=== PATIENT | female | born 1975 | race Caucasian/White ===

== ENCOUNTER 2023-11-16 14:35 | Outpatient (OUT) | payer OTHER, SELFPAY ==
--- NOTE | 2023-11-16 14:55 | XR_ITS ---
The [address] [address] Patient Name: DIOGENES ALLEN MRN: [id number] date: 1975 Sex: F Assigned Patient Location: [facility] Current Patient Location: Accession/Order Number: [id number] Exam Date: 11/16/2023 14:48 Report Date: 11/18/2023 07:22 At the request of: LESLEY CARDENAS Procedure: XR knee LT 4V PROCEDURE: XR knee LT 4V COMPARISON: None. HISTORY: Left Knee Pain FINDINGS: BONES:No fracture, acute abnormality, or significant arthropathy. SOFT TISSUES:Negative. No visible soft tissue swelling. EFFUSION:None visible. OTHER: Negative. XR/XR knee LT 4V IMPRESSION: No acute radiographic abnormality Electronically authenticated by: AURELIO NASSAR Date: 11/18/2023 07:22
== END 2023-11-16 14:36 | disposition home or self-care (01) ==
PROVIDERS: PCP Nurse Practitioner Family; Visit Provider Nurse Practitioner Family
DX: M25.562 Pain in left knee (principal)
CPT/HCPCS: 73564

== ENCOUNTER 2024-01-16 11:01 | Outpatient (OUT) | payer OTHER, SELFPAY ==
--- OUTSIDE RECORDS SUMMARY | 2024-01-16 11:05 | XMS_ITS | CCD ---
Author Organization [facility] ion Partnership [facility] Care Team Providers Care Pharmacist Apprentice Name Role Phone La Aquino Unavailable Angy Lunsford Unavailable JEFERSON Aquino Attending Provider Angy Lunsford Admitting Unavailable Angy Lunsford Attending Unavailable La Aquino Primary Care Unavailable La Aquino Admitting Unavailable La Aquino Attending Unavailable Unallocated, [place] Provider Primary Care Provider KHARI HEAD Attending Unavailable SANTA LUNSFORD Primary Care Unavailable SANTA LUNSFORD Attending Unavailable SANTA LUNSFORD Admitting Unavailable Allergies Allergy Classification Reported Allergen(s) Allergy Type Date of Onset Reaction(s) Facility (16 sources) Morphine; Translations: [morphine] Drug Allergy 12-22-2018 stomach upset [facility] (1 source) Morphine Drug Allergy 12-22-2018 [facility] Repository Medications Current Medications Medication Drug Class(es) Dates Sig (Normalized) Sig (Original) ascorbic acid 250 mg oral tablet (12 sources) Vitamin C Start: 12-23-2018 take 1 tablet by mouth once daily Ascorbic Acid (Vitamin C) (Vitamin C) 250 mg Tablet Active 250 MG PO Daily December 23, 2018 12:00am ascorbic acid (V itamin C) 100 MG chewable tablet Vitamin C 0 Active take 1 tablet by [place] th every twenty-four hours Vitamin C 250 MG 1 tablet Orally Once a day Active aspirin 81 mg delayed release oral tablet (13 sources) Platelet Aggregation Inhibitor, Nonsteroidal Anti-inflammatory Drug take 1 tablet by mouth every twenty-four hours Aspirin Adult Low Dose 81 MG 1 tablet Orally Once a day Active atorvastatin 20 mg oral tablet (18 sources) HMG-CoA Reductase Inhibitor Star t: 10-1 7-20 19 atorvastatin (Lipitor) 20 MG tablet compression stockings (13 sources) compression stoc kings Active ELDERBERRY FRUIT (1 source) Star t: 11-26 Elderberry Fruit Active MG PO November 16, 2023 12:00am Elderberry preparation (2 sources) ELDERBERRY PO Ta ke by mouth 0 Active losartan potassium 25 mg oral tablet (18 sources) Angiotensin 2 Receptor Jeffrey Star t: 12-07 losartan (Cozaar) 25 MG tablet methylPREDNISolone 4 mg oral tablet (1 source) Corticosteroid Star t: 11-26 24 take 1 tablet by mouth once Methylprednisolone (Medrol (Reece)) 4 mg tablets,dose pack Active 0 PO per package directions November 16, 2023 12:00am PO PER PKG DIR Multiple Vitamin (13 sources) Multiple Vitamin as directed Orally Active Multiple Vitamins-Minerals (MULTIVITAMIN ADULTS PO) (2 sources) Multiple Vitamins-Minerals (MULTIVITAMIN ADULTS PO) Multivitamin 0 Active Multivitamin preparation (3 sources) Star t: 12-07 19 take 1 tablet by mouth once daily Multivitamin Active 1 TAB PO Daily December 23, 2018 12:00am Start: 12-23-2018 take 1 tablet by [place] once daily Multivitamin Active 1 TAB PO Daily December 22, 2018 11:00pm Probiotic - (13 sources) Probiotic - as d irected Orally Active saccharomyces boulardii 250 mg oral capsule (1 source) Start: 11-16-2023 take 1 capsule by mouth twice daily Saccharomyces Boulardii (Daily Probiotic (S. Boulardii)) 250 mg capsule Active 250 MG PO Twice daily November 16, 2023 12:00am Vitamin B 12 100 MCG (12 sources) Vitamin B 12 100 MCG as directed Orally Active vitamin b12 0.1 mg oral lozenge (1 source) Vitamin B12 Vitamin B 12 100 MCG as directed Orally Active Vitamin C 250 MG (6 sources) take 1 tablet by mouth once daily Vitamin C 250 MG 1 tablet Orally Once a day Active vitamin e 90 mg oral capsule (2 sources) take 1 capsule by mouth in the morning vitamin E capsule Take 200 Units by mouth in the morning. 0 Active zinc acetate 25 mg oral capsule (1 source) Start: 11-16-2023 take 25 mg by mouth once daily Zinc Acetate Active 25 MG PO Daily November 16, 2023 12:00am Completed/Discontinued Medications Medication Drug Class(es) Dates Sig (Normalized) Sig (Original) Norgestimate-Ethin yl Estradiol (7 sources) Progestin, Estrogen Start: 12-23-2018 End: 11-16-2023 take 1 tablet by mouth once daily Norgestimate-Ethiny l Estradiol (Tri-Sprintec (28)) 0.18/0.215/0.25 mg-35 mcg (28) tablet Discontinued 1 TAB PO Daily December 23, 2018 12:00am November 16, 2023 1:51pm Start: 12-23-2018 take 1 tablet by [place] th once daily Norgestimate-Ethinyl Estradiol (Tri-Sprintec (28)) 0.18/0.215/0.25 mg-35 mcg (28) tablet Active 1 TAB PO Daily December 23, 2018 12:00am Start: 12-23-2018 take 1 tablet by [place] th once daily Norgestimate-Ethinyl Estradiol (Tri-Sprintec (28)) 0.18/0.215/0.25 mg-35 mcg (28) tablet Active 1 TAB PO Daily December 22, 2018 11:00pm take 1 tablet by [place] th once daily Ortho Tri-Cyclen (28) 0.18/0.215/0.25 MG-35 MCG 1 tablet Orally Once a day Not-Taking triamcinolone acetonide 1 mg/ml topical cream (4 sources) Corticosteroid Start: 01-30-2020 Triamcinolone Acetonide 0.1 % 1 application Externally Twice a day for 7 day(s) apply twice per day for the 7 days and then as needed when it flares. Jan, Not-Taking Problems Active Problems Problem Classification Problem Date Documented Date Episodic/Chronic Allergic reactions (2 sources) Chronic dermatitis; Translations: [Dermatitis, unspecified] 04-20-2023 Episodic Diabetes mellitus without complication (4 sources) Impaired fasting glucose; Translations: [Impaired fasting glucose] Onset: 01-07-2023 Episodic Disorders of lipid metabolism (20 sources) Hyperlipidemia; Translations: [Hyperlipidemia, unspecified] Onset: 01-28-2021 Resolved: 11-18-2021 Chronic Essential hypertension (20 sources) Essential hypertension; Translations: [Essential (primary) hypertension] Onset: 01-28-2021 Resolved: 11-18-2021 Chronic Other diseases of veins and lymphatics (13 sources) Peripheral venous insufficiency; Translations: [Venous insufficiency (chronic) (peripheral)] Episodic Other endocrine disorders (2 sources) Disorder of endocrine system; Translations: [Endocrine disorder, unspecified] 04-20-2023 Episodic Other female genital disorders (3 sources) Leukoplakia of vulva Onset: 01-28-2021 Resolved: 01-28-2021 Episodic Other nervous system disorders (9 sources) Chronic pain; Translations: [Other chronic pain] Chronic Other nervous system disorders (2 sources) Other chronic pain Chronic Other non-traumatic joint disorders (4 sources) Pain in left knee; Translations: [Left knee pain] Episodic Other nutritional; endocrine; and metabolic disorders (17 sources) Body mass index 40+ - severely obese; Translations: [Body mass index (BMI) 45.0-49.9, adult] Chronic Other nutritional; endocrine; and metabolic disorders (3 sources) Body mass index (BMI) 40.0-44.9, adult Onset: 01-28-2021 Resolved: 01-28-2021 Chronic Other screening for suspected conditions (not mental disorders or infectious disease) (12 sources) Encounter for screening for malignant neoplasm of colon; Translations: [Encounter for screening mammogram for malignant neoplasm of breast] Onset: 01-28-2021 Resolved: 01-28-2021 Episodic Substance-related disorders (11 sources) Smoker; Translations: [Nicotine dependence, unspecified, uncomplicated] Chronic Unclassified (1 source) Pure hypercholesterolemia , unspecified; Translations: [Pure hypercholesterolemia , unspecified] Onset: 01-07-2023 Varicose veins of lower extremity (20 sources) Varicose veins of lower extremity; Translations: [Varicose veins of bilateral lower extremities with pain] Episodic Past or Other Problems Problem Classification Problem Date Documented Da te Episodic/Chronic Other non-traumatic joint disorders (1 source) Pain in unspecified joint Onset: 01-28-2021 Resolved: 01-28-2021 Episodic Results Test Name Value Interpretation Reference Range Facility Coding Summaryon 06-29-2023 Coding Summary HTMLBase 64 CrrafflfQAn5iTi+PGhlY WQ+RP3FYBDsL45whYMlrA 0pW6MDPSqYTeitBIEETNv DAfBnsuLaOO9qwVQqNYVs IC8+DE9pDEDoXypteHIke 5S9iKD5N03lqp7pVDevnW T6BYYsKaIhejqln3dmfXm 6IDcuNmluOyBt FZMndW13LZH2qN90Gh64g ZBfiPWut2lehQa5GwWbLC UeNKO8kSelRUbuy8DbHSU bU32wdGXug8R9 YQNuvQapuWObGyArpLE4e G5uRJzocsuax7gxquntPd d4fk15yNUaf9R1pEA9K4M gveQ1QIUdiCJe EcajfWGEiM8edsaxc1alz psvUaYeMJRoGLd9ILd2SO CnkOcvXyOeQR78AUJ4YQB hkgGjV9QvMBZd zVhzFvX1r4L3Ap3RU5DSI usbU0BVTCVDAHakzFP+PC 48vp67E6QrUhezGeb8NJM kQHV0fPV1hI0c ODNiKCsfk7Z7gAR7R4Aab cMndz7vn1jqHTAiNXwlW7 0tiRYcd2C8PYZpdQP6GPU viUzxHjHrwC33 Oyc+WALmgAoye3AsHnsxw 4ayh9zznIb8GvovSYRvmq BrhQvaEFW5p4GvZs7oTIA tpZJ3xYY7nE3k AzZxGhN9EZsjK456HvWlp YMsZtdpK04cE5UrbTQ+PH RzJww8JDUmjCudBC5dV9Z hZGRpbmctbGVm dIfhCV4nZUFirhcnAFZqy Q8yCGWbZ5z2MmHsNhC1ME cpL6EuKGPkcgatRd40fC4 uRyMaGsB4XErc K9XuyzW4QPLenLUdNQusY ID8Z42rt7A7BIIyRPEeGS Q2uQO1sY1xxNutcfvfbPT mdDsgdmVydGlj CFrdOJtxC322AGJsdLbjL kNvZGluZyBEYXRlOiAgMD QvMjIvMjAyNDwvdGQ+PHR tVZZ4wNyxDGEp cAVxZZtuTf9xcOwbrOocL J9wFLXunxpkZZBrjO3qLL DrxCQegCkxPZ3bQQYzhlv kx240EcAbUDY8 SKSadRBkY5TapP4jFnInZ WJcBWMuL3RjrJGsKQanS6 21DOkqFtU6XPAesmSiT2T sLWFsaWduOiB0 j6S3Sk0Xr5DcapvmX0Yyn TDwFzRvFuvcKYh2H8JdQz wvdHI+SJ32VWQnNU86AAo 5HSN4xMotYOzj YJOzR3QcnG2vHgPaNKYeZ GRkOyc+PHRhYmxlIHdpZH RoPScxMDAlJyBzdHlsZT0 tGq1xVIVoWPFg xTcwdTLdMmQhy8hzGBRoG XauZK1gvLkvN1LnyPA3LO Fnn3k0Kh54P66nU1JuuTI +UNUafAB8xHJ5 hC5vWnVrUaQ1WSvwA621V dKdhKCiZprgl6cdb4qwzB s3KdK9GVEuifCqdMeaWGW 5o0SkBc84X50j IHdpZHRoPSIxNSUiIHZhb Oxcuc2zgR7xTg3+PGNvbC X5iKJ8bR6jTiBoFoM3AQc uT605AzZisACd Bqicp6kes2ipvPx6XyVhZ XOoyyUxlRawVFX9r8FsTe 58P5VdrWpak5GlIeh0pv1 9dOFpx1G6iNL1 V4BnVBAzealmuKRviXpzL H8yCXZddbdoRLNzdT2jBM HrB9q3BdCzKnI9CPqmJ7L ouyF5VNTpwKRl IENmqUAIlW1ndtbmp3cvv qxfJqNfOFGdXCs2RLk9DA AmoCttAyIsUEA4MeM9NAZ 6gQBjzC6plHbw ppjsyU7tGdb+ANJ1aXUki NAXDT1fMlyioME+PHRkIH H3uUgfWCsoMABlhP6kDQM sO4m5JoTaQfS1 SKbmJ7MoirW3NGGfeQGuX BAfbCLFeQ7pyhklx9vlwo siFpFeGOXaFQj5VFs1ZYK saWduOiBsZWZ0 OxN4BHK7oIVxtA1gjCtqb qvhrH9dZyz+QmlydGggRG O1JKx2A8WeGzr4XBLmnJy wXL3ptHVvZYar Cv0atWpxyMhfWO9cKJHub nvpv892WmUli1gaSXCiwJ MdPFplLDY8X89sk4P0HFQ gENKmAPI2eWG6 cP9sgJrppdykiPRnjGnao vGabEyrCBcwCBosL435EA AieYemLfXvDPc6I6DrSue 0WAQysPwrOL9c lSGqPOcfRu5toRybxAgvB H1uQHMsczrtt531PaQhd0 zlCGCynZFhUDtjNHJ6U69 rb8W2RZJbABHq BRT8mVZ7rQ7qiPtfnbaci GVmdDsgdmVydGljYWwtYW poX792GTRbjCjsBjYwgFm 5G9SoFzk6GSTj rCmeLZ9tvRQaFYneBe6fh ZbuvWikOP8bVLQjgttvp9 65QnCqq9wqHEZpzMOeWAd dLMR8Q56sw2I9 YLSlDYUiQTU7jHD7nL8rw GlnbjogbGVmdDsgdmVydG krGUxrLUomE371ZBMzcLx nPlBhdGllbnQg DHpvIVl1B6QbQmpeyAW+P A66VFMrJS09zNSpfBXqv8 fezZf2JnVkBHJwDPQ7sTa cJOwmi6AwOMOs P62ygGLbv6S3BDMefVuiw ZCaYwQnzCF4xS9eEHbtgz aub7thxsreXgszg0ielr2 9lQ05O43zRXbi ZHRoPSIzMCUiIHZhbGlnb m8idW6qOj7+BRRxyFA8jV S7uI8vGIZkOpJ6ANtjE41 9InRvcCIvPjxj f8fzh5puhWw8VkO6OIDhw sHeaUerINA0m3EjFr29M1 9sIHdpZHRoPSIyMCUiIHZ nwHscbf3vmU2n Ii8+UTLfiYK2qUR0pI4xE vAgJzJ7CPhlF425XjPbiH JgIrxmH19zF5YaxKO+PHR nQmg7LMDmeMmk MN5rrSXwVJnsSd3fSOP8Y nCvOrCyOBzzS5CcAUTqlw nxccthsTW1IYPcQQNuhD3 9Ur9fyLrkUSYr yAAGbF5ekqzwx8hzwaylM eQbHGZoXAg6RIm5QAZrzG wfBlKcZUA1HrD2RAJ7qXL heE4bfSsksyze vB3cB0IzBMViyotcAw19g B6oFpPcWuE8WNnyJen+Uk pFHFrbWJBKP8xmBKyQPfb vdGQ+PHRkIHN0 oPjpENjgMRCsoS3aOKHjZ 1c7ApOdTkZ3QPpqS9XoJJ XsvtxuBw35kB4wZxZzWxT 6RUtpX8BqfyV4 ODGzuJBcRJzeQIX7X01no 8T1HUDdHTMcKIQ3vDN5zI 1hbGlnbjogbGVmdDsgdmV ydGljYWwtYWxp B630SYWabTzyEeEpYgN3K uW8HmK6B6GfNkj4BCRoeT nvYY4gxJPmFYnrYr7vpKv yqBmsHR8pWWMv mjsjZGEauJ8kHWLejRXpx VquYN8iOLRtxieiy538Yh EpSWK6ISGsiDPkD4MqnM1 yOiAjMDAwMDAw L3TwrDDsQVliO121BWxyB bF7ETYqrdCzB1AwNTSptA yrErD0r8H8Ww92JWFARLB yczwvdGQ+PHRk WUN0vGbwIFkcBBWvrP1bW YWhE0e7PzUsBsW7LHxhC9 HgPQLizqkiXt61uP3vWfG wNbW5SSzlK1Kb ylJ7FJKebHJpSLchIXF7Z 63dd2V3UVWfJUOfDKT4jK N5gN1knDacvmgthFGuvKv gdmVydGljYWwt GXbeA995CWTgwNxtQnHRR UFMRTwvdGQ+CGYlFAV8kG jxAFowTXRpvP3qHJCcK8k 0UyPxOrQ9KUhh R8XmJAHuvtlkQj09lA6rS uBmGkP9GNvaG3DzlaJ0ZB FnvZNmKSfcARZ1Q18lu6S 9YTPuQZXbTOU3 zCF2eO1bqAwzyxrsoSAev DsgdmVydGljYWwtYWxpZ2 24XPDcuCskFu6RNO66CC5 0W9NyCykfeYPl bGU+PHRhYmxlIHdpZHRoP QpgPHKqHaHlfAqcIQ5cIl 9yZGVyLWNvbGxhcHNlOiB bs8kfDNRaXOjt ID1duPxhG7MimKB0KYCib 0a6Ii28B68tR5PaoQJ+PG BvtWZ7tBP4hW6rFkPyJnO 3RKlbI957GcZq uQHwJadyn0tra4fdzLo3O pCgWQBvliFcqDscSQF1z3 HcNj25U33mTUfnPYJeABO yMCUiIHZhbGln xa4tiL6qPk9+DJEdyPN8i EK0fE4jTtHzEdO6FZpeU3 43RjYzjJRwRdzwS99kA6O vdXA+PHRyPjx0 COQdpDebQV3sxZMyVIzdJ w1lJRL5EyLeGwNmPOsmD8 CvEABjpjodycudqUV3YKZ iGSHaeL68Bm3u jFaeSq2tVEHhKPE9AYYen RLfC5VxwU3kLjXuBKHfKF PdT5CjcRUdNEqiZ795GJo sAaQ0CWBizbRr J4SkBEVxkMruKlU8e9L8N c0DqQsplSTnDB7tQdMhHA p3Y4LgCkq0BJKekQvoLC7 wdSUlEVvoXj5c mBeutRvlQP4nQMJwionwg 048RpLjw1kuUBZwkAYvRH mhGMP7Q27tg3B5GWUjNGT vNDK6nAD8aM9w bGlnbjogbGVmdDsgdmVyd YnhIDsiPWqdB400CRLolG swXwPGFeb4I1YuQqd8DAZ bqGdwHE1ooLXb KLdtHp0wlXggoNbvHV6vX UVnalxrq441BdFum2plCB XvgNWkOIgeKAT7M03cv5S 5ZADiSJJhZNI0 aGT1pP1fqJjfhdhthCUts DsgdmVydGljYWwtYWxpZ2 63SYNmbHwtQk9RJlk9A2B rPvc1JROrzRgw UK8fyVNyKBtjDy8ufNggk LeoLN1jQIJlexmie601Gv Tct8xlOUNwuMRtCZipEWE 3K66aj2P7CFOw VLGfBTV4oVU9yN7mhQpnr jogbGVmdDsgdmVydGljYW agPMpkL831GSOfePkdBqY heWVyOjwvdGQ+ WE83dl17O2SrMlvlNpk9O NWwJQB7gVD8cO8gSAMuNA rnn8K7vWM6E2AwttSnrj2 ur3mkJDHoWAxd Y29 (more content not included)... [facility] Consent Formson 06-23-2023 Consent Forms [id number] 1 [id number]#[id number] OTGTIFF [facility] Mammo Screening 3D Bilate ral.on 06-20-2023 [place] Mammo Screening 3D Bilateral. MAMMOGRAM SCREENING 3-D BILATERAL: CLINICAL DATA: Routine screening TECHNIQUE: Screening digital mammogram study of both breasts was performed with 2-D and 3-D tomosynthesis imaging. Study was compared to the prior exam dated 05/30/2022. FINDINGS: Scattered areas of fibroglandular density are noted bilaterally. There is no evidence of interval dominant spiculated mass, grouped microcalcifications or skin thickening which would be suggestive of malignancy. Mild scattered benign-appearing calcifications on the left with a few benign-appearing calcifications on the right. Finding compatible with intramammary lymph noted on the left similar to the prior study. Axillary lymph nodes are noted bilaterally. Calcification of one of the left axillary lymph nodes not felt to be acutely significant. R2 ImageChecker was utilized for this study. IMPRESSION: No specific evidence of malignancy seen in either breast. BIRADS: 2 - Benign, no evidence of malignancy. Normal interval followup is recommended in 12 months. OVERALL ASSESSMENT- BENIGN A letter of notification will be sent to the patient regarding the results. Assessment / Recommendation: 2-1 Normal interval follow-up Breast density: Scattered Fibroglandular Density Recall interval: 012 months Final Dictated by: Lars Thapa MD Dictated DT/TM: 06/23/23 12:32 Signed (Electronic Signature): Lars Thapa MD 06/23/23 4:16 pm Technologist: EM Assessment: 2-Benign finding Recommendation: Normal interval follow-up [facility] Provider Orderson 06-09-2023 Provider Orders [id number] .[id number] [facility] Alanine aminotransferase [En zymatic activity/volume] in Serum or PlasmaOrdered By: Angy Lunsford on 01-07-2023 ALT [Catalytic activity/Vol] 18 U/L 7-52 [facility] Albumin [Mass/volume] in Ser um or Plasma by Bromocresol green (BCG) dye binding methoOrdered By: Angy Lunsford on 01-07-2023 Albumin BCG dye [Mass/Vol] 4.1 g/dL 3.5-5.7 [facility] Alkaline phosphatase [Enzyma tic activity/volume] in Serum or PlasmaOrdered By: Angy Lunsford on 01-07-2023 ALP [Catalytic activity/Vol] 62 U/L 34-104 [facility] Aspartate aminotransferase [ Enzymatic activity/volume] in Serum or PlasmaOrdered By: Angy Lunsford on 01-07-2023 AST [Catalytic activity/Vol] 15 U/L 13-39 [facility] Basophils Auto (Bld) [#/Vol] Ordered By: Angy Lunsford on 01-07-2023 Basophils (Bld) [#/Vol] 0.0 10*3/uL 0.0-0.2 [facility] Basophils/100 WBC Auto (Bld) Ordered By: Angy Lunsford on 01-07-2023 Basophils/100 WBC (Bld) 0.5 % . [facility] Bilirubin.total [Mass/volume ] in Serum or PlasmaOrdered By: Angy Lunsford on 01-07-2023 Bilirubin [Mass/Vol] 0.4 mg/dL 0.3-1.0 [facility] CMP with reflex to A1Con Albumin [Mass/Vol] 4.1 g/dL Normal 3.5-5.7 [facility] Comment on above: Order Comment: Reaso n for Exam Hyperlipidemia;Elevated fasting glucose;Annual physical exam Performed By: #### C BC, CMP wRFX A1C, LIPID #### [address] Albumin/Globulin [Mass ratio] 2.1 {ratio} Normal [facility] Comment on above: Order Comment: Reaso n for Exam Hyperlipidemia;Elevated fasting glucose;Annual physical exam Performed By: #### C BC, CMP wRFX A1C, LIPID #### [facility] [address] [place] [id number] [place] ALP [Catalytic activity/Vol] 62 U/L Normal 34-104 [facility] Comment on above: Order Comment: Reaso n for Exam Hyperlipidemia;Elevated fasting glucose;Annual physical exam Performed By: #### C BC, CMP wRFX A1C, LIPID #### [facility] [address] [place] [id number] [place] ALT [Catalytic activity/Vol] 18 U/L Normal 7-52 [facility] Comment on above: Order Comment: Reaso n for Exam Hyperlipidemia;Elevated fasting glucose;Annual physical exam Performed By: #### C BC, CMP wRFX A1C, LIPID #### [facility] [address] Anion gap [Moles/Vol] 7.7 mmol/L Normal 6.0-15.0 [facility] Comment on above: Order Comment: Reaso n for Exam Hyperlipidemia;Elevated fasting glucose;Annual physical exam Performed By: #### C BC, CMP wRFX A1C, LIPID #### [facility] [address] [place] [id number] [place] AST [Catalytic activity/Vol] 15 U/L Normal 13-39 [facility] Comment on above: Order Comment: Reaso n for Exam Hyperlipidemia;Elevated fasting glucose;Annual physical exam Performed By: #### C BC, CMP wRFX A1C, LIPID #### [facility] [address] [place] [id number] [place] Bilirubin [Mass/Vol] 0.4 mg/dL Normal 0.3-1.0 [facility] Comment on above: Order Comment: Reaso n for Exam Hyperlipidemia;Elevated fasting glucose;Annual physical exam Performed By: #### C BC, CMP wRFX A1C, LIPID #### [facility] [address] [place] [id number] [place] Calcium [Mass/Vol] 9.1 mg/dL Normal 8.6-10.3 [facility] Comment on above: Order Comment: Reaso n for Exam Hyperlipidemia;Elevated fasting glucose;Annual physical exam Performed By: #### C BC, CMP wRFX A1C, LIPID #### [facility] [address] [place] [address] [place] Chloride [Moles/Vol] 109 mmol/L High 98-107 [facility] Comment on above: Order Comment: Reaso n for Exam Hyperlipidemia;Elevated fasting glucose;Annual physical exam Performed By: #### C BC, CMP wRFX A1C, LIPID #### [facility] [address] [place] [address] [place] CO2 [Moles/Vol] 29.8 mmol/L Normal 21.0-31.0 [facility] Comment on above: Order Comment: Reaso n for Exam Hyperlipidemia;Elevated fasting glucose;Annual physical exam Performed By: #### C BC, CMP wRFX A1C, LIPID #### [facility] [address] Creatinine [Mass/Vol] 0.61 mg/dL Normal 0.60-1.20 [facility] Comment on above: Order Comment: Reaso n for Exam Hyperlipidemia;Elevated fasting glucose;Annual physical exam Performed By: #### C BC, CMP wRFX A1C, LIPID #### [facility] [address] GFR/1.73 sq M.predicted MDRD (S/P/Bld) [Vol rate/Area] mL/min/{1.73_m2} [facility] Comment on above: Order Comment: Reaso n for Exam Hyperlipidemia;Elevated fasting glucose;Annual physical exam Performed By: #### C BC, CMP wRFX A1C, LIPID #### [facility] [address] Globulin (S) [Mass/Vol] 2.0 g/dL Normal [facility] Comment on above: Order Comment: Reaso n for Exam Hyperlipidemia;Elevated fasting glucose;Annual physical exam Performed By: #### C BC, CMP wRFX A1C, LIPID #### [facility] [address] [place] [id number] [place] Glucose [Mass/Vol] 86 mg/dL Normal 70-100 [facility] Comment on above: Order Comment: Reaso n for Exam Hyperlipidemia;Elevated fasting glucose;Annual physical exam Performed By: #### C BC, CMP wRFX A1C, LIPID #### [facility] [address] [place] [address] [place] Potassium [Moles/Vol] 4.5 mmol/L Normal 3.5-5.1 [facility] Comment on above: Order Comment: Reaso n for Exam Hyperlipidemia;Elevated fasting glucose;Annual physical exam Performed By: #### C BC, CMP wRFX A1C, LIPID #### [facility] [address] [place] [address] [place] Protein [Mass/Vol] 6.1 g/dL Low 6.4-8.9 [facility] Comment on above: Order Comment: Reaso n for Exam Hyperlipidemia;Elevated fasting glucose;Annual physical exam Performed By: #### C BC, CMP wRFX A1C, LIPID #### [facility] [address] [place] [address] [place] Sodium [Moles/Vol] 142 mmol/L Normal 136-145 [facility] Comment on above: Order Comment: Reaso n for Exam Hyperlipidemia;Elevated fasting glucose;Annual physical exam Performed By: #### C BC, CMP wRFX A1C, LIPID #### [facility] [address] [place] [address] [place] Urea nitrogen [Mass/Vol] 14 mg/dL Normal 7-25 [facility] Comment on above: Order Comment: Reaso n for Exam Hyperlipidemia;Elevated fasting glucose;Annual physical exam Performed By: #### C BC, CMP wRFX A1C, LIPID #### [facility] [address] [place] [address] [place] Calcium [Mass/volume] in Ser um or PlasmaOrdered By: Angy Lunsford on 01-07-2023 Calcium [Mass/Vol] 9.1 mg/dL 8.6-10.3 [facility] Carbon dioxide, total [Moles /volume] in Serum or PlasmaOrdered By: Angy Lunsford on 01-07-2023 CO2 [Moles/Vol] 29.8 mmol/L 21.0-31.0 [facility] Chloride [Moles/volume] in S shala or PlasmaOrdered By: Angy Lunsford on 01-07-2023 Chloride [Moles/Vol] 109 mmol/L 98-107 [facility] Cholesterol [Mass/volume] in Serum or PlasmaOrdered By: Angy Lunsford on 01-07-2023 Cholesterol [Mass/Vol] 164 mg/dL 140-200 [facility] Comment on above: Chol less than 200 m g/dl low riskChol 201-239 mg/dl borderline riskChol 240 mg/dl and greater high risk Cholesterol in LDL Calc [Mas s/Vol]Ordered By: Angy Lunsford on 01-07-2023 Cholesterol in LDL [Mass/Vol] 89 mg/dL 0-100 [facility] Comment on above: LDL ATP III CLASSIFI CATIONLDL less than 100 mg/dL OptimalLDL 100-129 mg/dL Near or above optimalLDL 130-159 mg/dL Borderline highLDL 160-189 mg/dL HighLDL greater than 189 mg/dL Very high Cholesterol in VLDL Calc [Ma ss/Vol]Ordered By: Angy Lunsford on 01-07-2023 Cholesterol in VLDL [Mass/Vol] 20 mg/dL [facility] Complete Blood Count Auto Di ffon 01-07-2023 Basophils (Bld) [#/Vol] 0.0 10*3/uL Normal 0.0-0.2 [facility] Comment on above: Order Comment: Reaso n for Exam Hyperlipidemia;Elevated fasting glucose;Annual physical exam Result Comment: PERF ORMED BY: [place] [address] PATHOLOGIST SEARCH STRATEGIST LAMAR COLLIER M.D. Performed By: #### C BC, CMP wRFX A1C, LIPID #### [facility] [address] [place] [address] [place] Basophils/100 WBC (Bld) 0.5 % Normal . [facility] Comment on above: Order Comment: Reaso n for Exam Hyperlipidemia;Elevated fasting glucose;Annual physical exam Performed By: #### C BC, CMP wRFX A1C, LIPID #### [facility] [address] [place] [id number] [place] Eosinophils (Bld) [#/Vol] 0.3 10*3/uL Normal 0.0-0.45 [facility] Comment on above: Order Comment: Reaso n for Exam Hyperlipidemia;Elevated fasting glucose;Annual physical exam Performed By: #### C BC, CMP wRFX A1C, LIPID #### [facility] [address] [place] [address] [place] Eosinophils/100 WBC (Bld) 4.6 % Normal . [facility] Comment on above: Order Comment: Reaso n for Exam Hyperlipidemia;Elevated fasting glucose;Annual physical exam Performed By: #### C BC, CMP wRFX A1C, LIPID #### [facility] [address] [place] [address] Erythrocyte distribution width (RBC) [Ratio] 12.6 % Normal 11.9-15.3 [facility] Comment on above: Order Comment: Reaso n for Exam Hyperlipidemia;Elevated fasting glucose;Annual physical exam Performed By: #### C BC, CMP wRFX A1C, LIPID #### [facility] [address] [place] [address] Hematocrit (Bld) [Volume fraction] 40.7 % Normal 34.0-46.4 [facility] Comment on above: Order Comment: Reaso n for Exam Hyperlipidemia;Elevated fasting glucose;Annual physical exam Performed By: #### C BC, CMP wRFX A1C, LIPID #### [facility] [address] [place] [address] Hemoglobin (Bld) [Mass/Vol] 13.8 g/dL Normal 11.8-15.4 [facility] Comment on above: Order Comment: Reaso n for Exam Hyperlipidemia;Elevated fasting glucose;Annual physical exam Performed By: #### C BC, CMP wRFX A1C, LIPID #### [facility] [address] [place] [address] [place] Lymphocytes (Bld) [#/Vol] 2.1 10*3/uL Normal 1.00-4.8 [facility] Comment on above: Order Comment: Reaso n for Exam Hyperlipidemia;Elevated fasting glucose;Annual physical exam Performed By: #### C BC, CMP wRFX A1C, LIPID #### [facility] [address] [place] [address] [place] Lymphocytes/100 WBC (Bld) 35.2 % Normal . [facility] Comment on above: Order Comment: Reaso n for Exam Hyperlipidemia;Elevated fasting glucose;Annual physical exam Performed By: #### C BC, CMP wRFX A1C, LIPID #### [facility] [address] MCH (RBC) [Entitic mass] 32.4 pg Normal 24.7-34.3 [facility] Comment on above: Order Comment: Reaso n for Exam Hyperlipidemia;Elevated fasting glucose;Annual physical exam Performed By: #### C BC, CMP wRFX A1C, LIPID #### [facility] [address] MCV (RBC) [Entitic vol] 95.7 fL Normal 80-100 [facility] Comment on above: Order Comment: Reaso n for Exam Hyperlipidemia;Elevated fasting glucose;Annual physical exam Performed By: #### C BC, CMP wRFX A1C, LIPID #### [facility] [address] Mean Corpuscular HGB Conc 33.9 g/dL Normal 32.0-35.0 [facility] Comment on above: Order Comment: Reaso n for Exam Hyperlipidemia;Elevated fasting glucose;Annual physical exam Performed By: #### C BC, CMP wRFX A1C, LIPID #### [facility] [address] [place] [address] [place] Monocytes (Bld) [#/Vol] 0.5 10*3/uL Normal 0.0-0.8 [facility] Comment on above: Order Comment: Reaso n for Exam Hyperlipidemia;Elevated fasting glucose;Annual physical exam Performed By: #### C BC, CMP wRFX A1C, LIPID #### [facility] [address] [place] [address] [place] Monocytes/100 WBC (Bld) 8.9 % Normal . [facility] Comment on above: Order Comment: Reaso n for Exam Hyperlipidemia;Elevated fasting glucose;Annual physical exam Performed By: #### C BC, CMP wRFX A1C, LIPID #### [facility] [address] [place] [address] [place] Neutrophils (Bld) [#/Vol] 3.0 10*3/uL Normal 1.8-7.7 [facility] Comment on above: Order Comment: Reaso n for Exam Hyperlipidemia;Elevated fasting glucose;Annual physical exam Performed By: #### C BC, CMP wRFX A1C, LIPID #### [facility] [address] [place] [address] [place] Neutrophils/100 WBC (Bld) 50.8 % Normal . [facility] Comment on above: Order Comment: Reaso n for Exam Hyperlipidemia;Elevated fasting glucose;Annual physical exam Performed By: #### C BC, CMP wRFX A1C, LIPID #### [facility] [address] [place] [address] [place] NRBC% 0.1 /100{WBC} Normal 0-0.5 [facility] Comment on above: Order Comment: Reaso n for Exam Hyperlipidemia;Elevated fasting glucose;Annual physical exam Performed By: #### C BC, CMP wRFX A1C, LIPID #### [facility] [address] [place] [address] [place] Platelet mean volume (Bld) [Entitic vol] 8.3 fL Normal 6.3-10.7 [facility] Comment on above: Order Comment: Reaso n for Exam Hyperlipidemia;Elevated fasting glucose;Annual physical exam Performed By: #### C BC, CMP wRFX A1C, LIPID #### [facility] [address] [place] [address] [place] Platelets (Bld) [#/Vol] 303 10*3/uL Normal 150-450 [facility] Comment on above: Order Comment: Reaso n for Exam Hyperlipidemia;Elevated fasting glucose;Annual physical exam Performed By: #### C BC, CMP wRFX A1C, LIPID #### [facility] [address] [place] [address] [place] RBC (Bld) [#/Vol] 4.25 10*6/uL Normal 3.60-5.00 [facility] Comment on above: Order Comment: Reaso n for Exam Hyperlipidemia;Elevated fasting glucose;Annual physical exam Performed By: #### C BC, CMP wRFX A1C, LIPID #### [facility] [address] [place] [address] [place] WBC (Bld) [#/Vol] 5.9 10*3/uL Normal 3.8-11.6 [facility] Comment on above: Order Comment: Reaso n for Exam Hyperlipidemia;Elevated fasting glucose;Annual physical exam Performed By: #### C BC, CMP wRFX A1C, LIPID #### [facility] [address] Creatinine [Mass/volume] in Serum or PlasmaOrdered By: Angy Lunsford on 01-07-2023 Creatinine [Mass/Vol] 0.61 mg/dL 0.60-1.20 [facility] Eosinophils Auto (Bld) [#/Vo l]Ordered By: Angy Lunsford on 01-07-2023 Eosinophils (Bld) [#/Vol] 0.3 10*3/uL 0.0-0.45 [facility] Eosinophils/100 WBC Auto (Bl d)Ordered By: Angy Lunsford on 01-07-2023 Eosinophils/100 WBC (Bld) 4.6 % . [facility] Erythrocyte distribution wid th Auto (RBC) [Ratio]Ordered By: Angy Lunsford on 01-07-2023 Erythrocyte distribution width (RBC) [Ratio] 12.6 % 11.9-15.3 [facility] Globulin Calc (S) [Mass/Vol] Ordered By: Angy Lunsford on 01-07-2023 Globulin (S) [Mass/Vol] 2.0 g/dL [facility] Glucose [Mass/volume] in Ser um or PlasmaOrdered By: Angy Lunsford on 01-07-2023 Glucose [Mass/Vol] 86 mg/dL 70-100 [facility] Hematocrit Auto (Bld) [Volum e fraction]Ordered By: Angy Lunsford on 01-07-2023 Hematocrit (Bld) [Volume fraction] 40.7 % 34.0-46.4 [facility] Hemoglobin [Mass/volume] in BloodOrdered By: Angy Lunsford on 01-07-2023 Hemoglobin (Bld) [Mass/Vol] 13.8 g/dL 11.8-15.4 [facility] Leukocytes [#/volume] correc nubia for nucleated erythrocytes in Blood by Automated counOrdered By: Angy Lunsford on 01-07-2023 WBC corrected for nucl RBC Auto (Bld) [#/Vol] 5.9 10*3/uL 3.8-11.6 [facility] Lipid Panelon 01-07-2023 Cholesterol [Mass/Vol] 164 mg/dL Normal 140-200 [facility] Comment on above: Order Comment: Reaso n for Exam Hyperlipidemia;Elevated fasting glucose;Annual physical exam Result Comment: Chol less than 200 mg/dl low risk Chol 201-239 mg/dl borderline risk Chol 240 mg/dl and greater high risk Performed By: #### C BC, CMP wRFX A1C, LIPID #### [facility] [address] Cholesterol in HDL [Mass/Vol] 54 mg/dL Normal 23-92 [facility] Comment on above: Order Comment: Reaso n for Exam Hyperlipidemia;Elevated fasting glucose;Annual physical exam Result Comment: HDL CHOL ATP-III CLASSIFICATION Cardiovascular Risk HDL > or equal to 60 mg/dL LOW HDL < 40 mg/dL HIGH Performed By: #### C BC, CMP wRFX A1C, LIPID #### [facility] [address] Cholesterol.total/Lisa sterol in HDL [Mass ratio] 3.0 {ratio} Normal <5.0 [facility] Comment on above: Order Comment: Reaso n for Exam Hyperlipidemia;Elevated fasting glucose;Annual physical exam Result Comment: PERF ORMED BY: [place] [address] PATHOLOGIST SEARCH STRATEGIST LAMAR COLLIER M.D. Performed By: #### C BC, CMP wRFX A1C, LIPID #### [facility] [address] [place] [address] [place] LDL Cholesterol,Calculated 89 mg/dL Normal 0-100 [facility] Comment on above: Order Comment: Reaso n for Exam Hyperlipidemia;Elevated fasting glucose;Annual physical exam Result Comment: LDL ATP III CLASSIFICATION LDL less than 100 mg/dL Optimal LDL 100-129 mg/dL Near or above optimal LDL 130-159 mg/dL Borderline high LDL 160-189 mg/dL High LDL greater than 189 mg/dL Very high Performed By: #### C BC, CMP wRFX A1C, LIPID #### [facility] [address] Triglyceride w/Reflex 104 mg/dL Normal 0-149 [facility] Comment on above: Order Comment: Reaso n for Exam Hyperlipidemia;Elevated fasting glucose;Annual physical exam Result Comment: TRIG ATP III CLASSIFICATION TRIG less than 150 mg/dL Normal TRIG 150-199 mg/dL Borderline high TRIG 200-500 mg/dL High TRIG greater than 500 mg/dL Very high Standard traceable to the Center for Disease Conrtrol and Prevention (CDC) test method. Performed By: #### C BC, CMP wRFX A1C, LIPID #### [facility] [address] VLDL CHOLESTEROL 20 mg/dL Normal [facility] Comment on above: Order Comment: Reaso n for Exam Hyperlipidemia;Elevated fasting glucose;Annual physical exam Performed By: #### C BC, CMP wRFX A1C, LIPID #### [facility] [address] Lymphocytes Auto (Bld) [#/Vo l]Ordered By: Angy Lunsford on 01-07-2023 Lymphocytes (Bld) [#/Vol] 2.1 10*3/uL 1.00-4.8 [facility] Lymphocytes/100 WBC Auto (Bl d)Ordered By: Angy Lunsford on 01-07-2023 Lymphocytes/100 WBC (Bld) 35.2 % . [facility] MCH Auto (RBC) [Entitic mass ]Ordered By: Angy Lunsford on 01-07-2023 MCH (RBC) [Entitic mass] 32.4 pg 24.7-34.3 [facility] MCHC Auto (RBC) [Mass/Vol]Or dered By: Angy Lunsford on 01-07-2023 MCHC (RBC) [Mass/Vol] 33.9 g/dL 32.0-35.0 [facility] MCV Auto (RBC) [Entitic vol] Ordered By: Angy Lunsford on 01-07-2023 MCV (RBC) [Entitic vol] 95.7 fL 80-100 [facility] Monocytes Auto (Bld) [#/Vol] Ordered By: Angy Lunsford on 01-07-2023 Monocytes (Bld) [#/Vol] 0.5 10*3/uL 0.0-0.8 [facility] Monocytes/100 WBC Auto (Bld) Ordered By: Angy Lunsford on 01-07-2023 Monocytes/100 WBC (Bld) 8.9 % . [facility] Neutrophils Auto (Bld) [#/Vo l]Ordered By: Angy Lunsford on 01-07-2023 Neutrophils (Bld) [#/Vol] 3.0 10*3/uL 1.8-7.7 [facility] Neutrophils/100 WBC Auto (Bl d)Ordered By: Angy Lunsford on 01-07-2023 Neutrophils/100 WBC (Bld) 50.8 % . [facility] No Panel InformationOrdered By: Angy Lunsford on 01-07-2023 Estimated GFR (CKD-EPI) > 60.0 mL/Min [facility] Creatinine Clearance (Chem N/A [facility] Nucleated erythrocytes [Pres ence] in Blood by Automated countOrdered By: Angy Lunsford on 01-07-2023 Nucleated RBC Auto Ql (Bld) 0.1 /100{WBC} 0-0.5 [facility] Platelet mean volume Auto (B ld) [Entitic vol]Ordered By: Angy Lunsford on 01-07-2023 Platelet mean volume (Bld) [Entitic vol] 8.3 fL 6.3-10.7 [facility] Platelets Auto (Bld) [#/Vol] Ordered By: Angy Lunsford on 01-07-2023 Platelets (Bld) [#/Vol] 303 10*3/uL 150-450 [facility] Potassium [Moles/volume] in Serum or PlasmaOrdered By: Angy Lunsford on 01-07-2023 Potassium [Moles/Vol] 4.5 mmol/L 3.5-5.1 [facility] Protein [Mass/volume] in Ser um or PlasmaOrdered By: Angy Lunsford on 01-07-2023 Protein [Mass/Vol] 6.1 g/dL 6.4-8.9 [facility] RBC Auto (Bld) [#/Vol]Ordere d By: Angy Lunsford on 01-07-2023 RBC (Bld) [#/Vol] 4.25 10*6/uL 3.60-5.00 [facility] Serum or plasma albumin/glob ulin mass ratioOrdered By: Angy Lunsford on 01-07-2023 Albumin/Globulin [Mass ratio] 2.1 {ratio} [facility] Serum or plasma anion gap de terminationOrdered By: Angy Lunsford on 01-07-2023 Anion gap [Moles/Vol] 7.7 mmol/L 6.0-15.0 [facility] Serum or plasma high density lipoprotein (HDL) cholesterol measurementOrdered By: Angy Lunsford on 01-07-2023 Cholesterol in HDL [Mass/Vol] 54 mg/dL 23-92 [facility] Comment on above: HDL CHOL ATP-III CLA SSIFICATION Cardiovascular RiskHDL > or equal to 60 mg/dL LOWHDL < 40 mg/dL HIGH Serum or plasma total choles terol/high density lipoprotein (HDL) cholesterol mass ratOrdered By: Angy Lunsford on 01-07-2023 Cholesterol.total/Lisa sterol in HDL [Mass ratio] 3.0 {ratio} <5.0 [facility] Sodium [Moles/volume] in Ser um or PlasmaOrdered By: Angy Lunsford on 01-07-2023 Sodium [Moles/Vol] 142 mmol/L 136-145 [facility] Triglyceride [Mass/volume] i n Serum or PlasmaOrdered By: Angy Lunsford on 01-07-2023 Triglyceride [Mass/Vol] 104 mg/dL 0-149 [facility] Comment on above: TRIG ATP III CLASSIF ICATIONTRIG less than 150 mg/dL NormalTRIG 150-199 mg/dL Borderline highTRIG 200-500 mg/dL High TRIG greater than 500 mg/dL Very highStandard traceable to the Center for Disease Conrtrol and Prevention (CDC) test method. Urea nitrogen [Mass/volume] in Serum or PlasmaOrdered By: Angy Lunsford on 01-07-2023 Urea nitrogen [Mass/Vol] 14 mg/dL 7-25 [facility] WBC Auto (Bld) [#/Vol]Ordere d By: Angy Lunsford on 01-07-2023 WBC (Bld) [#/Vol] 5.9 10*3/uL 3.8-11.6 [facility] A1C HEMOGLOBINon 02-03-2022 HbA1c (Bld) [Mass fraction] 5.0 % [facility] [employer] Other HbA1c (Bld) [Mass fraction]o n 02-03-2022 A1C HEMOGLOBIN [facility] [employer] Other Basophils Auto (Bld) [#/Vol] Ordered By: La Aquino on 01-22-2022 Basophils (Bld) [#/Vol] 0.1 10*3/uL 0.0-0.2 [facility] Basophils/100 WBC Auto (Bld) Ordered By: La Aquino on 01-22-2022 Basophils/100 WBC (Bld) 0.9 % . [facility] Body fluid albumin measureme nt (mass/volume)Ordered By: La Aquino on 01-22-2022 Albumin (Body fld) [Mass/Vol] 3.5 g/dL 3.2-5.5 [facility] Cholesterol [Mass/volume] in Serum or PlasmaOrdered By: La Aquino on 01-22-2022 Cholesterol [Mass/Vol] 155 mg/dL 140-200 [facility] Comment on above: Chol less than 200 m g/dl low riskChol 201-239 mg/dl borderline riskChol 240 mg/dl and greater high risk Cholesterol in LDL Calc [Mas s/Vol]Ordered By: La Aquino on 01-22-2022 Cholesterol in LDL [Mass/Vol] 75 mg/dL 0-100 [facility] Comment on above: LDL ATP III CLASSIFI CATIONLDL less than 100 mg/dL OptimalLDL 100-129 mg/dL Near or above optimalLDL 130-159 mg/dL Borderline highLDL 160-189 mg/dL HighLDL greater than 189 mg/dL Very high Cholesterol in VLDL Calc [Ma ss/Vol]Ordered By: La Aquino on 01-22-2022 Cholesterol in VLDL [Mass/Vol] 29 mg/dL [facility] Complete Blood Count Auto Di ffon 01-22-2022 Basophils (Bld) [#/Vol] 0.1 10*3/uL Normal 0.0-0.2 [facility] Comment on above: Order Comment: Reaso n for Exam Hyperlipidemia;Primary hypertension Result Comment: PERF ORMED BY: [place] [address] PATHOLOGIST SEARCH STRATEGIST LAMAR COLLIER M.D. Performed By: #### C MP, LIPID, CBC #### [facility] [address] [place] [address] Basophils/100 WBC (Bld) 0.9 % Normal . [facility] Comment on above: Order Comment: Reaso n for Exam Hyperlipidemia;Primary hypertension Performed By: #### C MP, LIPID, CBC #### [facility] [address] [place] [address] [place] Eosinophils (Bld) [#/Vol] 0.2 10*3/uL Normal 0.0-0.45 [facility] Comment on above: Order Comment: Reaso n for Exam Hyperlipidemia;Primary hypertension Performed By: #### C MP, LIPID, CBC #### [facility] [address] [place] [address] [place] Eosinophils/100 WBC (Bld) 3.2 % Normal . [facility] Comment on above: Order Comment: Reaso n for Exam Hyperlipidemia;Primary hypertension Performed By: #### C MP, LIPID, CBC #### [facility] [address] Erythrocyte distribution width (RBC) [Ratio] 12.9 % Normal 11.9-15.3 [facility] Comment on above: Order Comment: Reaso n for Exam Hyperlipidemia;Primary hypertension Performed By: #### C MP, LIPID, CBC #### [facility] [address] Hematocrit (Bld) [Volume fraction] 41.0 % Normal 34.0-46.4 [facility] Comment on above: Order Comment: Reaso n for Exam Hyperlipidemia;Primary hypertension Performed By: #### C MP, LIPID, CBC #### [facility] [address] Hemoglobin (Bld) [Mass/Vol] 13.6 g/dL Normal 11.8-15.4 [facility] Comment on above: Order Comment: Reaso n for Exam Hyperlipidemia;Primary hypertension Performed By: #### C MP, LIPID, CBC #### [address] Lymphocytes (Bld) [#/Vol] 2.3 10*3/uL Normal 1.00-4.8 [facility] Comment on above: Order Comment: Reaso n for Exam Hyperlipidemia;Primary hypertension Performed By: #### C MP, LIPID, CBC #### [address] Lymphocytes/100 WBC (Bld) 35.0 % Normal . [facility] Comment on above: Order Comment: Reaso n for Exam Hyperlipidemia;Primary hypertension Performed By: #### C MP, LIPID, CBC #### [address] MCH (RBC) [Entitic mass] 31.5 pg Normal 24.7-34.3 [facility] Comment on above: Order Comment: Reaso n for Exam Hyperlipidemia;Primary hypertension Performed By: #### C MP, LIPID, CBC #### [address] MCV (RBC) [Entitic vol] 94.7 fL Normal 80-100 [facility] Comment on above: Order Comment: Reaso n for Exam Hyperlipidemia;Primary hypertension Performed By: #### C MP, LIPID, CBC #### [address] Mean Corpuscular HGB Conc 33.2 g/dL Normal 32.0-35.0 [facility] Comment on above: Order Comment: Reaso n for Exam Hyperlipidemia;Primary hypertension Performed By: #### C MP, LIPID, CBC #### [facility] [address] [place] [address] [place] Monocytes (Bld) [#/Vol] 0.5 10*3/uL Normal 0.0-0.8 [facility] Comment on above: Order Comment: Reaso n for Exam Hyperlipidemia;Primary hypertension Performed By: #### C MP, LIPID, CBC #### [facility] [address] [place] [address] [place] Monocytes/100 WBC (Bld) 8.2 % Normal . [facility] Comment on above: Order Comment: Reaso n for Exam Hyperlipidemia;Primary hypertension Performed By: #### C MP, LIPID, CBC #### [facility] [address] [place] [address] [place] Neutrophils (Bld) [#/Vol] 3.5 10*3/uL Normal 1.8-7.7 [facility] Comment on above: Order Comment: Reaso n for Exam Hyperlipidemia;Primary hypertension Performed By: #### C MP, LIPID, CBC #### [facility] [address] [place] [address] [place] Neutrophils/100 WBC (Bld) 52.7 % Normal . [facility] Comment on above: Order Comment: Reaso n for Exam Hyperlipidemia;Primary hypertension Performed By: #### C MP, LIPID, CBC #### [facility] [address] [place] [address] [place] Nucleated RBC/100 WBC (Bld) [Ratio] 0.1 % Normal 0-0.5 [facility] Comment on above: Order Comment: Reaso n for Exam Hyperlipidemia;Primary hypertension Performed By: #### C MP, LIPID, CBC #### [facility] [address] [place] [address] [place] Platelet mean volume (Bld) [Entitic vol] 8.4 fL Normal 6.3-10.7 [facility] Comment on above: Order Comment: Reaso n for Exam Hyperlipidemia;Primary hypertension Performed By: #### C MP, LIPID, CBC #### [facility] [address] [place] [address] [place] Platelets (Bld) [#/Vol] 321 10*3/uL Normal 150-450 [facility] Comment on above: Order Comment: Reaso n for Exam Hyperlipidemia;Primary hypertension Performed By: #### C MP, LIPID, CBC #### [facility] [address] RBC (Bld) [#/Vol] 4.33 10*6/uL Normal 3.60-5.00 [facility] Comment on above: Order Comment: Reaso n for Exam Hyperlipidemia;Primary hypertension Performed By: #### C MP, LIPID, CBC #### [facility] [address] WBC (Bld) [#/Vol] 6.6 10*3/uL Normal 4.5-11.0 [facility] Comment on above: Order Comment: Reaso n for Exam Hyperlipidemia;Primary hypertension Performed By: #### C MP, LIPID, CBC #### [facility] [address] Comprehensive Metabolic Pane zuly 01-22-2022 Albumin [Mass/Vol] 3.5 g/dL Normal 3.2-5.5 [facility] Comment on above: Order Comment: Reaso n for Exam Hyperlipidemia;Primary hypertension Performed By: #### C MP, LIPID, CBC #### [facility] [address] Albumin/Globulin [Mass ratio] 1.5 {ratio} Normal [facility] Comment on above: Order Comment: Reaso n for Exam Hyperlipidemia;Primary hypertension Performed By: #### C MP, LIPID, CBC #### [facility] [address] ALP [Catalytic activity/Vol] 67 U/L Normal 32-92 [facility] Comment on above: Order Comment: Reaso n for Exam Hyperlipidemia;Primary hypertension Performed By: #### C MP, LIPID, CBC #### [facility] [address] ALT [Catalytic activity/Vol] 22 U/L Normal 10-60 [facility] Comment on above: Order Comment: Reaso n for Exam Hyperlipidemia;Primary hypertension Performed By: #### C MP, LIPID, CBC #### [facility] [address] Anion gap [Moles/Vol] 11.0 mmol/L Normal 6.0-15.0 [facility] Comment on above: Order Comment: Reaso n for Exam Hyperlipidemia;Primary hypertension Performed By: #### C MP, LIPID, CBC #### [facility] [address] AST [Catalytic activity/Vol] 17 U/L Normal 10-42 [facility] Comment on above: Order Comment: Reaso n for Exam Hyperlipidemia;Primary hypertension Performed By: #### C MP, LIPID, CBC #### [facility] [address] Bilirubin [Mass/Vol] 0.6 mg/dL Normal 0.3-1.2 [facility] Comment on above: Order Comment: Reaso n for Exam Hyperlipidemia;Primary hypertension Performed By: #### C MP, LIPID, CBC #### [facility] [address] Calcium [Mass/Vol] 9.2 mg/dL Normal 8.2-10.2 [facility] Comment on above: Order Comment: Reaso n for Exam Hyperlipidemia;Primary hypertension Performed By: #### C MP, LIPID, CBC #### [facility] [address] [place] [address] [place] Chloride [Moles/Vol] 104 mmol/L Normal 95-114 [facility] Comment on above: Order Comment: Reaso n for Exam Hyperlipidemia;Primary hypertension Performed By: #### C MP, LIPID, CBC #### [facility] [address] [place] [address] [place] CO2 [Moles/Vol] 25.8 mmol/L Normal 22.0-30.0 [facility] Comment on above: Order Comment: Reaso n for Exam Hyperlipidemia;Primary hypertension Performed By: #### C MP, LIPID, CBC #### [facility] [address] [place] [address] [place] Creatinine [Mass/Vol] 0.64 mg/dL Normal 0.44-1.03 [facility] Comment on above: Order Comment: Reaso n for Exam Hyperlipidemia;Primary hypertension Performed By: #### C MP, LIPID, CBC #### [facility] [address] Estimated GFR ( Izabel > 60 [facility] Comment on above: Order Comment: Reaso n for Exam Hyperlipidemia;Primary hypertension Result Comment: GFR estimated reference range: According to KDOQI guidelines, <60 ml/min/1.73m2 is sufficient to diagnose a patient with chronic kidney disease. Performed By: #### C MP, LIPID, CBC #### [facility] [address] Estimated GFR (Non- Am > 60 [facility] Comment on above: Order Comment: Reaso n for Exam Hyperlipidemia;Primary hypertension Performed By: #### C MP, LIPID, CBC #### [facility] [address] Globulin (S) [Mass/Vol] 2.4 g/dL Normal [facility] Comment on above: Order Comment: Reaso n for Exam Hyperlipidemia;Primary hypertension Performed By: #### C MP, LIPID, CBC #### [facility] [address] Glucose [Mass/Vol] 104 mg/dL High 70-100 [facility] Comment on above: Order Comment: Reaso n for Exam Hyperlipidemia;Primary hypertension Result Comment: [place] Glucose Reference Range is dependent on time and content of last meal. Glucose of more than 200 mg/dL in a nonstressed, ambulatory subject supports the diagnosis of Diabetes Mellitus. ADA recommended reference range Performed By: #### C MP, LIPID, CBC #### [facility] [address] [place] [address] [place] Potassium [Moles/Vol] 3.8 mmol/L Normal 3.5-5.1 [facility] Comment on above: Order Comment: Reaso n for Exam Hyperlipidemia;Primary hypertension Performed By: #### C MP, LIPID, CBC #### [facility] [address] [place] [address] [place] Protein [Mass/Vol] 5.9 g/dL Low 6.1-7.9 [facility] Comment on above: Order Comment: Reaso n for Exam Hyperlipidemia;Primary hypertension Performed By: #### C MP, LIPID, CBC #### [facility] [address] [place] [id number] [place] Sodium [Moles/Vol] 137 mmol/L Normal 136-146 [facility] Comment on above: Order Comment: Reaso n for Exam Hyperlipidemia;Primary hypertension Performed By: #### C MP, LIPID, CBC #### [facility] [address] [place] [id number] [place] Urea nitrogen [Mass/Vol] 9 mg/dL Normal 9-23 [facility] Comment on above: Order Comment: Reaso n for Exam Hyperlipidemia;Primary hypertension Performed By: #### C MP, LIPID, CBC #### [facility] [address] [place] [address] [place] Creatinine and Glomerular fi ltration rate.predicted panel (S/P/Bld)Ordered By: La Aquino on 01-22-2022 Creatinine [Mass/Vol] 0.64 mg/dL 0.44-1.03 [facility] Eosinophils Auto (Bld) [#/Vo l]Ordered By: La Aquino on 01-22-2022 Eosinophils (Bld) [#/Vol] 0.2 10*3/uL 0.0-0.45 [facility] Eosinophils/100 WBC Auto (Bl d)Ordered By: La Aquino on 01-22-2022 Eosinophils/100 WBC (Bld) 3.2 % . [facility] Erythrocyte distribution wid th Auto (RBC) [Ratio]Ordered By: La Aquino on 01-22-2022 Erythrocyte distribution width (RBC) [Ratio] 12.9 % 11.9-15.3 [facility] Estimated glomerular filtrat ion rate (GFR) non- AmericanOrdered By: La Aquino on 01-22-2022 GFR/1.73 sq M.predicted among non-blacks MDRD (S/P/Bld) [Vol rate/Area] > 60 mL/Min [facility] Globulin Calc (S) [Mass/Vol] Ordered By: La Aquino on 01-22-2022 Globulin (S) [Mass/Vol] 2.4 g/dL [facility] Hematocrit Auto (Bld) [Volum e fraction]Ordered By: La Aquino on 01-22-2022 Hematocrit (Bld) [Volume fraction] 41.0 % 34.0-46.4 [facility] Hemoglobin [Mass/volume] in BloodOrdered By: La Aquino on 01-22-2022 Hemoglobin (Bld) [Mass/Vol] 13.6 g/dL 11.8-15.4 [facility] Laboratory - Hematology and Cell countsOrdered By: La Aquino on 01-22-2022 Nucleated RBC/100 WBC (Bld) [Ratio] 0.1 % 0-0.5 [facility] Leukocytes [#/volume] in Blo od by Automated countOrdered By: La Aquino on 01-22-2022 WBC (Bld) [#/Vol] 6.6 10*3/uL 4.5-11.0 [facility] Lipid Panelon 01-22-2022 Cholesterol [Mass/Vol] 155 mg/dL Normal 140-200 [facility] Comment on above: Order Comment: Reaso n for Exam Hyperlipidemia;Primary hypertension Result Comment: Chol less than 200 mg/dl low risk Chol 201-239 mg/dl borderline risk Chol 240 mg/dl and greater high risk Performed By: #### C MP, LIPID, CBC #### [facility] [address] Cholesterol in HDL [Mass/Vol] 50 mg/dL Normal 35-85 [facility] Comment on above: Order Comment: Reaso n for Exam Hyperlipidemia;Primary hypertension Result Comment: HDL CHOL ATP-III CLASSIFICATION Cardiovascular Risk HDL > or equal to 60 mg/dL LOW HDL < 40 mg/dL HIGH Performed By: #### C MP, LIPID, CBC #### [facility] [address] [place] [address] [facility] Cholesterol.total/Lisa sterol in HDL [Mass ratio] 3.1 {ratio} Normal <5.0 [facility] Comment on above: Order Comment: Reaso n for Exam Hyperlipidemia;Primary hypertension Result Comment: PERF ORMED BY: [place] [address] PATHOLOGIST SEARCH STRATEGIST LAMAR COLLIER M.D. Performed By: #### C MP, LIPID, CBC #### [facility] [address] LDL Cholesterol,Calculated 75 mg/dL Normal 0-100 [facility] Comment on above: Order Comment: Reaso n for Exam Hyperlipidemia;Primary hypertension Result Comment: LDL ATP III CLASSIFICATION LDL less than 100 mg/dL Optimal LDL 100-129 mg/dL Near or above optimal LDL 130-159 mg/dL Borderline high LDL 160-189 mg/dL High LDL greater than 189 mg/dL Very high Performed By: #### C MP, LIPID, CBC #### [facility] [address] [place] [address] Triglyceride w/Reflex 149 mg/dL Normal 35-149 [facility] Comment on above: Order Comment: Reaso n for Exam Hyperlipidemia;Primary hypertension Result Comment: TRIG ATP III CLASSIFICATION TRIG less than 150 mg/dL Normal TRIG 150-199 mg/dL Borderline high TRIG 200-500 mg/dL High TRIG greater than 500 mg/dL Very high Standard traceable to the Center for Disease Conrtrol and Prevention (CDC) test method. Performed By: #### C MP, LIPID, CBC #### [facility] [address] [place] [address] VLDL CHOLESTEROL 29 mg/dL Normal [facility] Comment on above: Order Comment: Reaso n for Exam Hyperlipidemia;Primary hypertension Performed By: #### C MP, LIPID, CBC #### [facility] [address] [place] [address] [place] Lymphocytes Auto (Bld) [#/Vo l]Ordered By: La Aquino on 01-22-2022 Lymphocytes (Bld) [#/Vol] 2.3 10*3/uL 1.00-4.8 [facility] Lymphocytes/100 WBC Auto (Bl d)Ordered By: La Aquino on 01-22-2022 Lymphocytes/100 WBC (Bld) 35.0 % . [facility] MCH Auto (RBC) [Entitic mass ]Ordered By: La Aquino on 01-22-2022 MCH (RBC) [Entitic mass] 31.5 pg 24.7-34.3 [facility] MCHC Auto (RBC) [Mass/Vol]Or dered By: La Aquino on 01-22-2022 MCHC (RBC) [Mass/Vol] 33.2 g/dL 32.0-35.0 [facility] MCV Auto (RBC) [Entitic vol] Ordered By: La Aquino on 01-22-2022 MCV (RBC) [Entitic vol] 94.7 fL 80-100 [facility] Monocytes Auto (Bld) [#/Vol] Ordered By: La Aquino on 01-22-2022 Monocytes (Bld) [#/Vol] 0.5 10*3/uL 0.0-0.8 [facility] Monocytes/100 WBC Auto (Bld) Ordered By: La Aquino on 01-22-2022 Monocytes/100 WBC (Bld) 8.2 % . [facility] Neutrophils Auto (Bld) [#/Vo l]Ordered By: La Aquino on 01-22-2022 Neutrophils (Bld) [#/Vol] 3.5 10*3/uL 1.8-7.7 [facility] Neutrophils/100 WBC Auto (Bl d)Ordered By: La Aquino on 01-22-2022 Neutrophils/100 WBC (Bld) 52.7 % . [facility] No Panel InformationOrdered By: La Aquino on 01-22-2022 Estimated GFR () > 60 mL/Min [facility] Comment on above: GFR estimated refere nce range: According to KDOQI guidelines, <60 ml/min/1.73m2 is sufficient to diagnose a patient with chronic kidney disease. Pharmacy Creatinine Clearance (Chem N/A [facility] Platelet mean volume Auto (B ld) [Entitic vol]Ordered By: La Aquino on 01-22-2022 Platelet mean volume (Bld) [Entitic vol] 8.4 fL 6.3-10.7 [facility] Platelets Auto (Bld) [#/Vol] Ordered By: La Aquino on 01-22-2022 Platelets (Bld) [#/Vol] 321 10*3/uL 150-450 [facility] Protein [Mass/volume] in Ser um or PlasmaOrdered By: La Aquino on 01-22-2022 Protein [Mass/Vol] 5.9 g/dL 6.1-7.9 [facility] RBC Auto (Bld) [#/Vol]Ordere d By: La Aquino on 01-22-2022 RBC (Bld) [#/Vol] 4.33 10*6/uL 3.60-5.00 [facility] Serum or plasma alanine ochoa otransferase measurement without P-5'-P (enzymatic activiOrdered By: La Aquino on 01-22-2022 ALT No additional P-5'-P [Catalytic activity/Vol] 22 U/L 10-60 [facility] Serum or plasma albumin/glob ulin mass ratioOrdered By: La Aquino on 01-22-2022 Albumin/Globulin [Mass ratio] 1.5 {ratio} [facility] Serum or plasma alkaline shane sphatase measurement (enzymatic activity/volume)Ordered By: La Aquino on 01-22-2022 ALP [Catalytic activity/Vol] 67 U/L 32-92 [facility] Serum or plasma anion gap de terminationOrdered By: La Aquino on 01-22-2022 Anion gap [Moles/Vol] 11.0 mmol/L 6.0-15.0 [facility] Serum or plasma aspartate am inotransferase measurement (enzymatic activity/volume)Ordered By: La Aquino on 01-22-2022 AST [Catalytic activity/Vol] 17 U/L 10-42 [facility] Serum or plasma calcium lindsey urement (mass/volume)Ordered By: La Aquino on 01-22-2022 Calcium [Mass/Vol] 9.2 mg/dL 8.2-10.2 [facility] Serum or plasma chloride ayden surement (moles/volume)Ordered By: La Aquino on 01-22-2022 Chloride [Moles/Vol] 104 mmol/L 95-114 [facility] Serum or plasma glucose lindsey urement (mass/volume)Ordered By: La Aquino on 01-22-2022 Glucose [Mass/Vol] 104 mg/dL 70-100 [facility] Comment on above: ADA recommended refe rence rangeRandom Glucose Reference Range is dependent on time and content of last meal. Glucose of more than 200 mg/dL in a nonstressed, ambulatory subject supports the diagnosis of Diabetes Mellitus. Serum or plasma high density lipoprotein (HDL) cholesterol measurementOrdered By: La Aquino on 01-22-2022 Cholesterol in HDL [Mass/Vol] 50 mg/dL 35-85 [facility] Comment on above: HDL CHOL ATP-III CLA SSIFICATION Cardiovascular RiskHDL > or equal to 60 mg/dL LOWHDL < 40 mg/dL HIGH Serum or plasma potassium me asurement (moles/volume)Ordered By: La Aquino on 01-22-2022 Potassium [Moles/Vol] 3.8 mmol/L 3.5-5.1 [facility] Serum or plasma sodium measu rement (moles/volume)Ordered By: La Aquino on 01-22-2022 Sodium [Moles/Vol] 137 mmol/L 136-146 [facility] Serum or plasma total biliru bin measurement (mass/volume)Ordered By: La Aquino on 01-22-2022 Bilirubin [Mass/Vol] 0.6 mg/dL 0.3-1.2 [facility] Serum or plasma total carbon dioxide measurement (moles/volume)Ordered By: La Aquino on 01-22-2022 CO2 [Moles/Vol] 25.8 mmol/L 22.0-30.0 [facility] Serum or plasma total choles terol/high density lipoprotein (HDL) cholesterol mass ratOrdered By: La Aquino on 01-22-2022 Cholesterol.total/Lisa sterol in HDL [Mass ratio] 3.1 {ratio} <5.0 [facility] Serum or plasma urea nitroge n measurement (mass/volume)Ordered By: La Aquino on 01-22-2022 Urea nitrogen [Mass/Vol] 9 mg/dL 9- [facility] Triglyceride [Mass/volume] i n Serum or PlasmaOrdered By: La Aquino on 01-22-2022 Triglyceride [Mass/Vol] 149 mg/dL 35-149 [facility] Comment on above: TRIG ATP III CLASSIF ICATIONTRIG less than 150 mg/dL NormalTRIG 150-199 mg/dL Borderline highTRIG 200-500 mg/dL High TRIG greater than 500 mg/dL Very highStandard traceable to the Center for Disease Conrtrol and Prevention (CDC) test method. Vital Signs Date Time Vital Sign Value Performing Clinician Facility 11-16-2023 13:51-0400 Body height 159.38 cm [facility] 11-16-2023 13:51-0400 Body mass index (BMI) [Ratio] 40.8 kg/m2 [facility] 11-16-2023 13:51-0400 Body weight 103.64 kg [facility] 11-16-2023 13:48-0400 Diastolic blood pressure 80 mm[Hg] [facility] 11-16-2023 13:48-0400 Heart rate 67 /min [facility] 11-16-2023 13:48-0400 Respiratory rate 18 /min [facility] 11-16-2023 13:48-0400 SaO2% (BldA) [Mass fraction] 98 % [facility] 11-16-2023 13:48-0400 Systolic blood pressure 122 mm[Hg] [facility] 04-20-2023 12:51-0500 Body mass index (BMI) [Ratio] 40.21 kg/m2 Khari Head MD Work Phone: [facility] 04-20-2023 12:51-0500 Body weight 102.97 kg Khari Head MD Work Phone: [facility] 02-12-2024 12:51-0500 Diastolic blood pressure 78 mm[Hg] Khari Head MD Work Phone: [facility] 04-20-2023 12:51-0500 Systolic blood pressure 128 mm[Hg] Khari Head MD Work Phone: [facility] 01-16-2023 08:30-0500 Body height 159.38 cm Angy Navratil Other [employer] [facility] 01-16-2023 08:30-0500 Body mass index (BMI) [Ratio] 39.99 kg/m2 Angy Navratil Other [employer] [facility] 01-16-2023 08:30-0500 Body weight 101.61 kg Angy Navratil Other [employer] [facility] 01-16-2023 08:30-0500 Diastolic blood pressure 78 mm[Hg] Angy Navratil Other [employer] [facility] 01-16-2023 08:30-0500 Respiratory rate 20 /min Angy Navratil Other [employer] [facility] 01-16-2023 08:30-0500 SaO2% (BldA) [Mass fraction] 98 % Angy Navratil Other [employer] [facility] 01-16-2023 08:30-0500 Systolic blood pressure 123 mm[Hg] Angy Navratil Other [employer] [facility] 02-03-2022 14:00-0500 Body height 159.38 cm La Aquino Other [employer] [facility] 02-03-2022 14:00-0500 Body mass index (BMI) [Ratio] 41.06 kg/m2 La Saeednoellekatydudley Other [employer] [facility] 02-03-2022 14:00-0500 Body temperature 98.2 [degF] La Saeednoellekatydudley Other [employer] [facility] 02-03-2022 14:00-0500 Body weight 104.33 kg La Saeednoellekatydudley Other [employer] [facility] 02-03-2022 14:00-0500 Diastolic blood pressure 79 mm[Hg] La Saeednoelleaktydudley Other [employer] [facility] 02-03-2022 14:00-0500 Respiratory rate 16 /min La Kenia Other [employer] [facility] 02-03-2022 14:00-0500 SaO2% (BldA) [Mass fraction] 98 % La Kenia Other [employer] [facility] 02-03-2022 14:00-0500 Systolic blood pressure 125 mm[Hg] La Kenia Other [employer] [facility] 01-28-2021 14:00-0500 Body height 159.38 cm La Isaelkatydudley Other [employer] [facility] 01-28-2021 14:00-0500 Body mass index (BMI) [Ratio] 43.03 kg/m2 La Saeednoellekatydudley Other [employer] [facility] 01-28-2021 14:00-0500 Body weight 109.32 kg Laaston Aquino Other [employer] Other 01-28-2021 14:00-0500 Diastolic blood pressure 72 mm[Hg] La Kenia Other [employer] [facility] 01-28-2021 14:00-0500 Respiratory rate 16 /min La Kenia Other [employer] [facility] 01-28-2021 14:00-0500 SaO2% (BldA) [Mass fraction] 98 % La Kenia Other [employer] [facility] 01-28-2021 14:00-0500 Systolic blood pressure 130 mm[Hg] La Kenia Other [employer] Other Encounters Encounter Date Encounter Type Care Provider Facility Start: 11-16-2023 End: 11-16-2023 ambulatory [facility] Work Phone: Start: 11-16-2023 End: 11-16-2023 Patient encounter procedure [facility] Work Phone: Start: 06-20-2023 End: 06-20-2023 ambulatory [place] Facility:[facility] Start: 04-20-2023 End: 04-20-2023 ambulatory KHARI HEAD Not Available Start: 04-20-2023 End: 04-20-2023 Patient encounter status Khari Head MD Work Phone: [facility] Start: 04-20-2023 End: 04-20-2023 Periodic preventive med est patient 40-64yrs Khari Head MD Work Phone: [facility] Comment on above: Chronic dermatitis ( Primary Dx); Encounter for gynecological examination without abnormal finding; Screening for malignant neoplasm of cervix; Encounter for screening mammogram for malignant neoplasm of breast; Hormone imbalance Start: 04-01-2023 End: 04-01-2023 ambulatory Angy Lunsford Other [employer] Other Start: 04-01-2023 Telephone encounter Angy holguin [facility] [place] Start: 01-16-2023 End: 01-16-2023 ambulatory Angy Lunsford Other [employer] Other Start: 01-16-2023 Patient encounter procedure Angy Lunsford [facility] Start: 01-16-2023 Periodic preventive med est patient 40-64yrs Angy Lunsford [facility] Start: 01-07-2023 Telephone encounter Angy holguin [facility] Start: 01-07-2023 End: 01-07-2023 ambulatory Angy Lunsford Facility:[facility] Start: 01-07-2023 Encounter for genera l adult medical examination without abnormal findings Angy Lunsford [facility] Start: 01-07-2023 End: 01-07-2023 ambulatory [employer] Aquino Work Phone: [facility] Work Phone: Start: 01-07-2023 End: 01-07-2023 Patient encounter procedure JEFERSON Aquino Work Phone: [facility] [place] Work Phone: Start: 12-09-2022 End: 12-09-2022 ambulatory Angy Lunsford Other [employer] [facility] Start: 12-09-2022 Patient encounter procedure Angy Lunsford [facility] Start: 12-09-2022 Telephone encounter Angy holguin [facility] Start: 06-02-2022 End: 06-02-2022 ambulatory La Aquino Other [employer] [facility] Start: 06-02-2022 Telephone encounter La Karimi her [employer] Start: 05-22-2022 End: 05-22-2022 ambulatory La Lucerodudley Other [employer] Other Start: 05-22-2022 Telephone encounter La Karimi her [facility] Start: 04-22-2022 End: 04-22-2022 ambulatory La Luceror Other [employer] Other Start: 04-22-2022 Telephone encounter La Karimi her [facility] Start: 04-04-2022 End: 04-04-2022 ambulatory La Saeeddylanr Other [employer] Other Start: 04-04-2022 Telephone encounter La Saeednoellejamison her [employer] Start: 02-03-2022 End: 02-03-2022 ambulatory La Kenia Other [employer] Other Start: 02-03-2022 Patient encounter procedure La Kenia [facility] Start: 02-03-2022 Periodic preventive med est patient 40-64yrs La Aquino [facility] Start: 01-23-2022 End: 01-23-2022 ambulatory La Kenia Other [employer] [facility] Start: 01-23-2022 Telephone encounter La Karimi her [place] [employer] Start: 01-22-2022 End: 01-22-2022 ambulatory La Luceror Facility:[facility] Start: 01-22-2022 End: 01-22-2022 ambulatory [employer] La Aquino Work Phone: [facility] Work Phone: Start: 01-22-2022 End: 01-22-2022 Patient encounter procedure [employer] La Aquino Work Phone: [facility] [place] Start: 11-18-2021 End: 11-18-2021 ambulatory La Aquino Other [employer] [facility] Start: 11-18-2021 Telephone encounter La Karimi her [facility] Start: 04-22-2021 End: 04-22-2021 ambulatory La Saeednoellecaden Other [employer] Other Start: 04-22-2021 Telephone encounter La Karimi her [employer] Start: 01-28-2021 End: 01-28-2021 ambulatory La Aquino Other [employer] Other Start: 01-28-2021 Patient encounter procedure La Aquino [facility] Start: 01-28-2021 Periodic preventive med est patient 40-64yrs La Aquino [facility] Plan of Treatment Date Care Activity Detail Author Start: 01-08-2024 End: 06-18-2024 DBT Breast - bilateral screening Bilateral screening mammogram with tomosynthesis Imaging Routine Encounter for screening mammogram for malignant neoplasm of breast Expected: 01/08/2024, Expires: 06/18/2024 [facility] Comment on above: Expected: 01/08/2024 , Expires: 06/18/2024 Start: 05-20-2023 End: 05-20-2023 Patient encounter procedure 05/20/2023 8:00 AM EDT Office Visit [facility] [address] [place] [id number] Khari Head MD [address] [place] [address] [facility] Start: 04-20-2023 End: 04-20-2024 Follicle stimulating hormone Follicle stimulating hormone Lab Routine Hormone imbalance Expected: 04/20/2023 (Approximate), Expires: 04/20/2024 [facility] Comment on above: Expected: 04/20/2023 (Approximate), Expires: 04/20/2024 E[facility]adiol Estradiol Lab Ro utine Hormone imbalance Ordered: 04/20/2023 [facility] Comment on above: Ordered: 04/20/2023 Estrone Estrone Lab Rout ine Hormone imbalance Ordered: 04/20/2023 [facility] Comment on above: Ordered: 04/20/2023 [facility] fpgs pap rf x hpv mrna e6/e7 [facility] fpgs pap rfx hpv mrna e6/e7 Pathology and Cytology Routine Encounter for gynecological examination without abnormal finding Screening for malignant neoplasm of cervix Ordered: 04/20/2023 [facility] Work Phone: Comment on above: Ordered: 04/20/2023 THINPREP TIS PAP AND HPV MRNA E6/E7 THINPREP TIS PAP AND HPV MRNA E6/E7 Pathology and Cytology Routine Encounter for gynecological examination without abnormal finding Screening for malignant neoplasm of cervix Ordered: 04/20/2023 [facility] Comment on above: Ordered: 04/20/2023 Thyrotropin [Units/volume] in Serum or Plasma TSH Lab Routine Hormone imbalance Ordered: 04/20/2023 [facility] Comment on above: Ordered: 04/20/2023 XR Knee - left 4 Views [facility] Immunizations Immunization Date Immunization Notes Care Provider Vu alfred 12-26-2019 influenza, seasonal, injectable La Aquino Other [facility] Payers Date Payer Category Payer Private Health Insurance [facility] [id number] 2023-Present [address] [address] [place] [address] [id number] 2023 Private Health Insurance [id number] 2022 Private Health Insurance [id number] 2022 Self-pay [id number] 1975 Unknown [id number] 1975 Unknown [id number] Private Health Insurance [id number] Unknown HCAP/HFA/FAP Active [id number] Unknown [id number] Unknown [id number] Social History Date Type Detail Facility Unknown if ever smoked [facility] [employer] Other Start: 04-20-2023 [facility] Assigned At [facility] Other Start: 12-23-2018 End: 12-23-2018 Tobacco smoking status RUST Current some day smoker [facility] Start: 1975 Sex Assigned At Female [facility] Start: 01-16-2023 End: 04-20-2023 Tobacco smoking status RUST Never smoked tobacco [facility] Start: 04-20-2023 Tobacco use and exposure Smokeless tobacco non-user [facility] Start: 04-20-2023 Alcohol intake Ex-drinker (finding) [facility] Start: 04-20-2023 History of Social function [facility] How often to you hav e a drink containing alcohol? Monthly or less [facility] How many standard drinks containing alcohol do you have on a typical day? 1 or 2 [facility] How often do you hav e 6 or more drinks on 1 occasion? Less than monthly [facility] Start: 1975 Sex Assigned At Not on file [facility] Clinical Notes 01-28-2021 to 04-20-2023 Khari Haed MD - 04/20/2023 1:00 PM EST Note Date & Type Note Facility 04-20-2023 History of Presen t illness Narrative Images from the original note were not included. Khari Head MD Obstetrics and Gynecology Patient: Amalia Jerez : 1975 (47 y.o.) Yearly Wellness Exam Date: 04/20/2023 Reason for Visit - Chief Complaint Patient presents with Gynecologic Exam LMP: 04/19/23 Last Mammogram: 01/29 Last [facility]: about [facility] Complaints: Would like to discuss having a hysterectomy. Patient stopped taking control for about 1 year. Menses has been very irregular lasting 2- 4 days since stopping OCP. Has hormonal acne. Menses today Visit Vitals BP 128/78 Wt 227 lb LMP 04/19/2023 (Exact Date) BMI 40.21 kg/m OB Status Having periods Smoking Status Never BSA 2.14 m History of Present Illness, Associated Treatments and Results - OB History Para Term AB Living 1 0 0 0 0 0 SAB IAB Ectopic Multiple Live Births 0 0 0 0 0 # Outcome Date GA Lbr Olegario/2nd Weight Sex Delivery Anes PTL Lv 1 Review of Systems - Constitutional: Negative. HENT: Negative. Eyes: Negative. Respiratory: Negative. Cardiovascular: Negative. Gastrointestinal: Negative. Endocrine: Negative. Genitourinary: Negative. Musculoskeletal: Negative. Skin: Negative. Allergic/Immunologic: Negative. Neurological: Negative. Hematological: Negative. Psychiatric/Behavioral: Negative. Allergies Allergen Reactions Morphine Other Reaction(s): Unknown, Unknown Reaction Current Outpatient Medications: atorvastatin (Lipitor) 20 MG tablet, , Disp: , Rfl: losartan (Cozaar) 25 MG tablet, , Disp: , Rfl: ascorbic acid (Vitamin C) 100 MG chewable tablet, Vitamin C, Disp: , Rfl: ELDERBERRY PO, Take by mouth, Disp: , Rfl: Multiple Vitamins-Minerals (MULTIVITAMIN ADULTS PO), Multivitamin, Disp: , Rfl: vitamin E capsule, Take 200 Units by mouth in the morning., Disp: , Rfl: Past Medical History: Diagnosis Date Hypertension (CMS/HCC) Past Surgical History: Procedure Laterality Date SECTION, LOW TRANSVERSE 07-21-2007 Family History Problem Relation Name Age of Onset Cancer Father's Brother Servando Social History Tobacco Use Smoking Status Never Smokeless Tobacco Never Physical Exam - General appearance, mentation, extraocular movements, facial strength and movement, hearing, upper and lower extremity strength and tone, sensation to gross testing, coordination, and gait are normal or at baseline unless noted below. Physical Exam Constitutional: Appearance: Normal appearance. Genitourinary: Right Labia: No rash or lesions. Left Labia: No lesions or rash. No vaginal discharge or erythema. No vaginal prolapse present. No vaginal atrophy present. Right Adnexa: not tender and no mass present. Left Adnexa: not tender and no mass present. No cervical lesion. Uterus is not tender. Uterus is anteverted. Breasts: Right: Normal. No mass or nipple discharge. Left: Normal. No mass or nipple discharge. HENT: Head: Normocephalic and atraumatic. Cardiovascular: Rate and Rhythm: Normal rate and regular rhythm. Pulmonary: Breath sounds: Normal breath sounds. Abdominal: General: There is no distension. Palpations: Abdomen is soft. There is no mass. Tenderness: There is no abdominal tenderness. Musculoskeletal: General: Normal range of motion. Cervical back: Neck supple. Lymphadenopathy: Cervical: No cervical adenopathy. Neurological: Mental Status: She is alert and oriented to person, place, and time. Skin: General: Skin is warm and dry. Psychiatric: Mood and Affect: Mood normal. FCBD Labia hypopigmentation Vitiligo vs LS fissure at apex of inner labia minora bilaterally Assessment/Plan ICD-10-CM 1. Chronic dermatitis L30.9 Ambulatory referral to Dermatology 2. Encounter for gynecological examination without abnormal finding Z01.419 [facility] fpgs pap rfx hpv mrna e6/e7 3. Screening for malignant neoplasm of cervix Z12.4 [facility] fpgs pap rfx hpv mrna e6/e7 4. Encounter for screening mammogram for malignant neoplasm of breast Z12.31 Bilateral screening mammogram with tomosynthesis 5. Hormone imbalance E34.9 Follicle stimulating hormone Estradiol TSH Estrone Follicle stimulating hormone Pap and exam performed. Mammogram ordered Results can be found in MyChart in 7 days Vulvar biopsy 2019:Superficial dermatitis with necrosis that she notices on axilla,foot,forehead Dermatology consult for chronic dermatitis for possible hormonal imbalance Pt with irregular unpredictable menses Labwork orderedfor possible hormonal imbalance Ultrasound scheduled for abnormal bleeding pattern Return 1 year/ after ultrasound documented in this encounter [facility] 04-01-2023 Evaluation note Encounter Date Diagnosis Assessment Notes Mar, Hyperlipidemia (ICD-10 - E78.5) [employer] Other 11-10-2023 Evaluation note* Encounter Date Diagnosis Assessment Notes Treatment Notes Treatment Clinical Notes Jan, Annual physical exam (ICD-10 - Z00.00) Wellness performed today. Height, weight, BMI, and immunization reviewed. Encouraged regular periods of exercise. Encouraged to eat a diet rich in plant-based foods and lean protein. Limit junk food and sources of excess calories. Jan, Hyperlipidemia (ICD-10 - E78.5) To goal. Lipid panel reviwed with patient. Dicsussed importance of maintaining an LDL level at specified goal. Discussed associated risk factors of hyperlipidemia including stroke and heart attack. Treatment with medications discussed and we have agrees upon appropirate action of treatment and goals. Discussed dietary modifications, including decreasing red meat consumption, decreased alcohol consumption, avoiding fried foods, and cake and cookies, and sweets. Encouraged increasing fiber in diet and eat a diet rich in omega-3. Encouraged to exericse at least 150 minutes weekly. Barriers to plan of care have been addressed. Follow-up as directed. Patient given a copy of the plan of care. Jan, Lichen sclerosus of female genitalia (ICD-10 - N90.4) Continues to have flares following with Dr Talamantes Jan, Impaired fasting glucose (ICD-10 - R73.01) This is stable today per recent labs. Continue to foucson weight loss and healthy diet Jan, Colon cancer screening (ICD-10 - Z12.11) Completed last year and negative due in 3 years Jan, Encounter for screening mammogram for malignant neoplasm of breast (ICD-10 - Z12.31) Patient is due for her routine yearly screening mammogram. Screening mammogram ordered today. Jan, Primary hypertension (ICD-10 - I10) To goal. Prior to your visit today we reviewed your chart and outlined the tetsing and treatment needed for your care. We discussed the possible complications of high blood pressure, including increased risk for heart disease, stroke, and kidney disease. Our goal is to keep your blood pressure below 130/85 (an preferably < 120/80) and maintain a healthy weight with a BMI less than 26. We are working together to acheive these goals with the following plan; healthier diet, increased activity and exercise, understanding your medicaitons, and your complaince. You have been given relevant education handouts. Jan, Other chronic pain (ICD-10 - G89.29) Jan, Pain in left knee (ICD-10 - M25.562) Pt will contact us when ready for referral and xray The patient is suffering from Knee bursitis. We discussed the conservative treatment options including non-steroidal anti-inflammatory medication. We discussed the use of occasional cortisone injections to decrease inflammation, or aspiration of bursa if there is enough fluid present to be beneficial, as well as application of compression to the bursa. Pt will call when she is ready for referral to ortho for tx Jan, Current smoker (ICD-10 - F17.200) We discussed possible complications of smoking including risk of heart disease, stroke, lung disease, and increase risk of cancer. Your goal is to quit smoking. The availability, risks, and benefits of medication used to treat nicotine addiction as releveant to you have been discussed. We are working together to achieve these goals with the following plan; barriers to these goals have been discussed. You have been given relevant education handouts and a summary of your care plan. Your next follow-up visit for this problem is six months, we will continue to ask progress for quitting and willingness to quit at each appointment. Jan, BMI 40.0-44.9, adult (ICD-10 - Z68.41) Patient is advised to work on healthy diet choices and appropriate servings, weight control, regular exercise as directed, reduced fat intake, and salt avoidance. Patient voiced understanding of this and agrees to this plan. She is working on this and continues to lose weight. Jan, Other T [employer] Other 10-03-2023 Evaluation note* Encounter Date Diagnosis Assessment Notes Treatment Notes Treatment Clinical Notes Dec, Hyperlipidemia (ICD- 10 - E78.5) Dec, Elevated fasting glu cose (ICD-10 - R73.01) Dec, Annual physical exam (ICD-10 - Z00.00) Dec, Primary hypertension (ICD-10 - I10) Dec, Pure hypercholestero lemia (ICD-10 - E78.00) Dec, Breast cancer screen ing (ICD-10 - Z12.31) [facility] Other 03-16-2023 Evaluation note* Encounter Date Diagnosis Assessment Notes Treatment Notes Treatment Clinical Notes May, Breast cancer screening (ICD-10 - Z12.31) [facility] Other 11-28-2022 Evaluation note* Encounter Date Diagnosis Assessment Notes Treatment Notes Treatment Clinical Notes Jan, Annual physical exam (ICD-10 - Z00.00) Wellness performed today. Height, weight, BMI, and immunization reviewed. Encouraged regular periods of exercise. Encouraged to eat a diet rich in plant-based foods and lean protein. Limit junk food and sources of excess calories. Jan, Essential hypertension, hypertension with unspecified goal (ICD-10 - I10) To goal. Prior to your visit today we reviewed your chart and outlined the tetsing and treatment needed for your care. We discussed the possible complications of high blood pressure, including increased risk for heart disease, stroke, and kidney disease. Our goal is to keep your blood pressure below 130/85 (an preferably < 120/80) and maintain a healthy weight with a BMI less than 26. We are working together to acheive these goals with the following plan; healthier diet, increased activity and exercise, understanding your medicaitons, and your complaince. You have been given relevant education handouts. Jan, Hyperlipidemia (ICD-10 - E78.5) To goal. Lipid panel reviwed with patient. Dicsussed importance of maintaining an LDL level at specified goal. Discussed associated risk factors of hyperlipidemia including stroke and heart attack. Treatment with medications discussed and we have agrees upon appropirate action of treatment and goals. Discussed dietary modifications, including decreasing red meat consumption, decreased alcohol consumption, avoiding fried foods, and cake and cookies, and sweets. Encouraged increasing fiber in diet and eat a diet rich in omega-3. Encouraged to exericse at least 150 minutes weekly. Barriers to plan of care have been addressed. Follow-up as directed. Patient given a copy of the plan of care. Jan, Lichen sclerosus of female genitalia (ICD-10 - N90.4) Continues to have flares. Provided pt with card to contact Dr. Talamantes office to set up an appointment. Jan, Impaired fasting glucose (ICD-10 - R73.01) A1c 5.0 Sugars reviewed and above normal values of <100. Dx of IFG discussed as well as the risk of progression to to DMII. Tx options reviewed - ADA diet, regular aerobic exercise (150 min weekly) with f/u in 6 months. Goal of A1C <6 % and FBG <100 discussed Jan, Colon cancer screening (ICD-10 - Z12.11) Discussed with patient the colon cancer screening options including cologuard and colonoscopy. Risks and benefits of each discussed. Patient opts for cologuard screening. Jan, Encounter for screening mammogram for malignant neoplasm of breast (ICD-10 - Z12.31) Patient is due for her routine yearly screening mammogram. Screening mammogram ordered today. Jan, Other chronic pain (ICD-10 - G89.29) Discussed diagnosis recommend x-ray with patient. Instructed to RICE knee. OTC Aleve with food as directed. Ice for 20 minutes three times daily. Knee brace for compression. Elevate foot when sitting or lying down. Rest knee avoiding vigorous physical activity, walking for long distances or periods of time. Patient voiced understanding and agrees with treatment plan. Will call with further recommendations. Jan, Pain in left knee (ICD-10 - M25.562) Jan, Current smoker (ICD-10 - F17.200) We discussed possible complications of smoking including risk of heart disease, stroke, lung disease, and increase risk of cancer. Your goal is to quit smoking. The availability, risks, and benefits of medication used to treat nicotine addiction as releveant to you have been discussed. We are working together to achieve these goals with the following plan; barriers to these goals have been discussed. You have been given relevant education handouts and a summary of your care plan. Your next follow-up visit for this problem is six months, we will continue to ask progress for quitting and willingness to quit at each appointment. Jan, BMI 40.0-44.9, adult (ICD-10 - Z68.41) Patient is advised to work on healthy diet choices and appropriate servings, weight control, regular exercise as directed, reduced fat intake, and salt avoidance. Patient voiced understanding of this and agrees to this plan. She is working on this and continues to lose weight. [facility] Other 09-12-2022 Evaluation note* Encounter Date Diagnosis Assessment Notes Treatment Notes Treatment Clinical Notes Nov, Hyperlipidemia (ICD-10 - E78.5) Nov, Primary hypertension (ICD-10 - I10) [facility] Other 11-22-2021 Evaluation note* Encounter Date Diagnosis Assessment Notes Treatment Notes Treatment Clinical Notes Jan, Annual physical exam (ICD-10 - Z00.00) Wellness performed today. Height, weight, BMI, and immunization reviewed. Encouraged regular periods of exercise. Encouraged to eat a diet rich in plant-based foods and lean protein. Limit junk food and sources of excess calories. Jan, Essential hypertension, hypertension with unspecified goal (ICD-10 - I10) To goal. Prior to your visit today we reviewed your chart and outlined the tetsing and treatment needed for your care. We discussed the possible complications of high blood pressure, including increased risk for heart disease, stroke, and kidney disease. Our goal is to keep your blood pressure below 130/85 (an preferably < 120/80) and maintain a healthy weight with a BMI less than 26. We are working together to acheive these goals with the following plan; healthier diet, increased activity and exercise, understanding your medicaitons, and your complaince. You have been given relevant education handouts. Jan, Hyperlipidemia (ICD-10 - E78.5) To goal. Lipid panel reviwed with patient. Dicsussed importance of maintaining an LDL level at specified goal. Discussed associated risk factors of hyperlipidemia including stroke and heart attack. Treatment with medications discussed and we have agrees upon appropirate action of treatment and goals. Discussed dietary modifications, including decreasing red meat consumption, decreased alcohol consumption, avoiding fried foods, and cake and cookies, and sweets. Encouraged increasing fiber in diet and eat a diet rich in omega-3. Encouraged to exericse at least 150 minutes weekly. Barriers to plan of care have been addressed. Follow-up as directed. Patient given a copy of the plan of care. Jan, Lichen sclerosus of female genitalia (ICD-10 - N90.4) [facility] but nothing that they have prescribed has been beneficial to treatment of the rash. Discussed with her that I would discuss her case with Dr. Talamantes tomorrow whom is an APPLICATION PERFORMANCE ENGINEER and she would like me to proceed with discussing her case. Will call with directions after discussion. She verbalizes understanding and agrees with plan of care. Jan, Multiple joint pain (ICD-10 - M25.50) Discussed causes of joint pain, inclduing osteoarthritis, rheumatoid arthritis, or other autoimmune cause. Dicussed further lab work of autoimmune cause, she will consider it. She wants to call her insurance regarding coverage. She will call with an update and if she wants these ordered. Jan, Screening for colon cancer (ICD-10 - Z12.11) Discussed with patient the colon cancer screening options including cologuard and colonoscopy. Risks and benefits of each discussed. She would like to check insurance regarding coverage and will call back with how she would like to proceed. Jan, BMI 40.0-44.9, adult (ICD-10 - Z68.41) Patient is advised to work on healthy diet choices and appropriate servings, weight control, regular exercise as directed, reduced fat intake, and salt avoidance. Patient voiced understanding of this and agrees to this plan. She is working on this and continues to lose weight. [facility] Other Evaluation noteNo InformationNort [employer] Other Evaluation noteNo assessment information available [facility] Work Phone: Evaluation note* Diagnosis Chronic dermatitis- Primary Contact dermatitis and other eczema, due to unspecified cause Encounter for gynecological examination without abnormal finding Screening for malignant neoplasm of cervix Screening for malignant neoplasm of the cervix Encounter for screening mammogram for malignant neoplasm of breast Hormone imbalance [facility] Diagnosis Onset Date Resolution Status Left knee pain acute [facility] Work Phone: History general Narrative - Reported* Type Description Date Medical History GERD Medical History varicose veins Medical History HTN Medical History HYPERLIPIDEMIA Medical History Varicose veins of leg with pain Medical History Lichen sclerosus Medical History Lichen sclerosus of female genit nathan Surgical History cholecystectomy 2010, jan Surgical History c section 07/21/2007 Surgical History Bilateral Micro Phlebectomy Hospitalization History Morphine allergy reactio n Jan Hospitalization History childbirth [facility] [employer] Other Reason for referral (narrative)* Consultation (Routine) - Authorized Specialty Diagnoses / Procedures Referred By Contjamison t Referred To Contact Dermatology Diagnoses Chronic dermatitis Procedures [place] OFFICE/OUTPATIENT [facility] MDM 60 MINUTES Khari Head MD [address] [place] [address] Sulema Tinajero MD [address] [place] [address] Referral ID Status Reason Start Date Expiration Date Visits Requested Visits Authorized [id number] Authorized Specialty Services Required 04/20/2023 10/17/2023 1 1 [facility] Family History No Family History Records Found Relationship Condition Age at Onset Recorded Date/T kathryn father Malignant neoplasm of lung Unknown Not Specified Hypertension Unknown Hyperlipidemia Unknown Malignant neoplasm of cervix Unknown brother Hypertension Unknown Relationship Condition Age at Onset Recorded Date/T kathryn father Malignant neoplasm of lung Unknown mother Hypertension Unknown Hyperlipidemia Unknown Malignant neoplasm of cervix Unknown brother Hypertension Unknown father Unknown Malignant neoplasm Unknown Family history of lung cancer Unknown grandparent Cardiac disease Unknown Advance Directives No Advanced Directives Records Found Advance Directive Response Recorded Date/ Time Advance Directives No January 4:19pm Advance Directive Response Recorded Date/ Time Advance Directives No January 5:19pm Summary Purpose Chief Complaint and Reason for Visit Chief Complaint est care, left knee pain Reason for Visit Left knee pain Additional Source Comments REASON FOR VISIT (unrecogniz ed section and content) Reason Comments Gynecologic Exam Care Teams (unrecognized sec tion and content) Team Status: Inactive Member Role Status Dates La Aquino APRN DIRECTOR OF PUPIL PERSONNEL PROGRAM-C Attending Provider Act pratik Pharmacist Apprentice Relationship Specialty Start Date End Date Unallocated, Noms Provider [address] [place] [address] PCP - General Family Medicine 04/20/23 Team Status: Active Member Role Status Dates Angy Lunsford APRN Primary Care Provider Activ e Team Status: Inactive Member Role Status Dates Angy Lunsford APRN Primary Care Provider Activ e Start: November 16, 2023 End: November 16, 2023 La Aquino APRN DIRECTOR OF PUPIL PERSONNEL PROGRAM-C Attending Provider Active Start: November End: November 16, 2023 Goals (unrecognized section and content) Goals may be documented in a n alternate section INFORMATION SOURCE (unrecogn ized section and content) DATE CREATED AUTHOR 01/13/2023 [facility] DATE CREATED AUTHOR AUTHOR'S ORGANIZ ATION 04/21/2023 [facility] DATE CREATED AUTHOR AUTHOR'S ORGANIZ ATION 12/19/2023 [facility] FOR RECORDS PERTAINING TO PATIENTS WHO ARE OR HAVE BEEN ENROLLED IN A CHEMICAL DEPENDENCY/SUBSTANCEABUSE PROGRAM, SOME INFORMATION MAY BE OMITTED. This clinical summary was aggregated from multiple sources. Caution should be exercised in using it in the provision of clinical care. This summary normalizes information from multiple sources, and as a consequence, information in this document may materially change the coding, format and clinical context of patient data. In addition, data may be omitted in some cases. CLINICAL DECISIONS SHOULD BE BASED ON THE PRIMARY CLINICAL RECORDS. [facility] [employer] provides no warranty or guarantee of the accuracy or completeness of information in this document.
[2024-01-16 11:21] LABS: Basophils Absolute Auto 0.1 10^3/uL (0.0-0.1); Basophils Percent Auto 0.8 % (0.2-2.0); Eosinophils Absolute Auto 0.3 10^3/uL (0.0-0.7); Eosinophils Percent Auto 5.1 % (0.9-7.0); Hematocrit 42.7 % (36.0-48.0); Hemoglobin 14.4 g/dL (12.0-16.0); Immature Granulocytes Abs Auto 0.01 10^3/uL (0.00-0.03); Immature Granulocytes Pct Auto 0.2 % (0.0-0.5); Lymphocytes Absolute Auto 2.3 10^3/uL (1.2-3.8); Lymphocytes Percent Auto 36.3 % (20.5-60.0); Mean Corpuscular HGB Conc 33.7 g/dL (29.9-35.2); Mean Corpuscular Hemoglobin 31.9 pg (26.7-34.0); Mean Corpuscular Volume 94.7 fL (81.0-99.0); Monocytes Absolute Auto 0.5 10^3/uL (0.3-0.8); Monocytes Percent Auto 7.8 % (1.7-12.0); Neutrophils Absolute Auto 3.1 10^3/uL (1.4-6.5); Neutrophils Percent Auto 49.8 % (43.0-75.0); Platelet Count 316 10^3/uL (150-450); Red Blood Count 4.51 10^6/uL (4.20-5.40); Red Cell Distribution Width 11.9 % (11.0-15.0); White Blood Count 6.3 10^3/uL (4.0-11.0)
[2024-01-16 11:42] LABS: Alanine Aminotransferase 35 U/L (14-59); Albumin Globulin Ratio 1.2; Albumin Level 3.7 g/dL (3.4-5.0); Alkaline Phosphatase 71 U/L (46-116); Anion Gap 15.3; Aspartate Amino Transferase 14 U/L (15-37); BUN Creatinine Ratio 16.7; Bilirubin Total 0.6 mg/dL (0.2-1.0); Chloride 107 mmol/L (98-107); Chol HDL Ratio 3.3; Cholesterol 191 mg/dL (<=200); Estimated GFR (African America >60 (>=60 mL/min/1.73m^2); Estimated GFR (Non-African Ame >60 (>=60 mL/min/1.73m^2); Globulin 3.1 g/dL; Glucose 93 mg/dL (74-106); HDL Cholesterol 58 mg/dL (40-60); LDL Cholesterol Calculated 109.4 mg/dL; Potassium 4.3 mmol/L (3.5-5.1); Sodium 146 mmol/L (136-145); Total Protein 6.8 g/dL (6.4-8.2); Triglycerides 118 mg/dL (<=150); VLDL CHOLESTEROL 23.6 mg/dL
== END 2024-01-16 11:02 | disposition home or self-care (01) ==
LOC: LAB 11:02
PROVIDERS: PCP Nurse Practitioner Family; Visit Provider Nurse Practitioner Family
DX: Z00.00 Encounter for general adult medical examination without abnormal findings (principal); E78.5 Hyperlipidemia, unspecified; I10 Essential (primary) hypertension
CPT/HCPCS: 36415; 80053; 80061; 85025

== ENCOUNTER 2024-07-15 20:59 | Emergency (ER) | payer OTHER, SELFPAY ==
--- OUTSIDE RECORDS SUMMARY | 2024-07-15 21:04 | XMS_ITS | CCD ---
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 ROTH GEORGE C Attending UnavailZEYNEP Llody Attending Unavailable STACY LANDA Attending Unavailable STACY LANDA Attending Unavailable MICHI BECK Attending Unavail able ZEYNEP BALTAZAR Referring Unavailable STACY LANDA Attending Unavailable STACY LANDA Referring Unavailable STACY LANDA Referring Unavailable La Aquino Primary Care Unavailable ANJELICA ROTH Attending Unavailable ANJELICA ROTH Admitting Unavailable William Weiner Unavailable ANJELICA ROTH Attending Unavailable ANJELICA ROTH Admitting Unavailable La Aquino Primary Care Unavailable La Aquino Primary Care Unavailable Zeynep Baltazar Attending Unavailable Zeynep Baltazar Admitting Unavailable Allergies Allergy Classification Reported Allergen(s) Allergy Type Date of Onset Reaction(s) Facility (20 sources) Morphine; Translations: [morphine] Drug Allergy 9 GI intolerance [facility] (1 source) Morphine Drug Allergy 9 [facility] Repository Medications Current Medications Medication Drug Class(es) Dates Sig (Normalized) Sig (Original) acetaminophen 325 mg / HYDROcodone bitartrate 5 mg oral tablet (1 source) Opioid Agonist Start: 06-23-2024 End: 06-26-2024 take 1 tablet by mouth every six hours for pain HYDROcodone-aceta minophen ([place]) 5-325 MG tablet Indications: Acute medial meniscus tear of left knee, initial encounter Take 1 tablet by mouth every 6 (six) hours if needed for severe pain for up to 3 days 12 tablet 06/23/2024 06/26/2024 Active ascorbic acid 250 mg oral tablet (20 sources) Vitamin C Start: 12-23-2018 take 1 tablet by mouth once daily Ascorbic Acid (Vitamin C) (Vitamin C) 250 mg Tablet Active 250 MG PO Daily December 23, 2018 12:00am ascorbic acid (V itamin C) 100 MG chewable tablet Vitamin C Active take 1 tablet by [place] th every twenty-four hours Vitamin C 250 MG 1 tablet Orally Once a day Active aspirin 81 mg delayed release oral tablet (20 sources) Platelet Aggregation Inhibitor, Nonsteroidal Anti-inflammatory Drug Start: 06-13-2024 take 1 tablet by mouth every other day Aspirin 81 mg tablet,delayed release (DR/EC) Active 81 MG PO .every other day June 13, 2024 12:00am take 1 tablet by mouth once dionicio y aspirin 81 MG EC tablet Take 81 mg by mouth Daily Active atorvastatin 20 mg oral tablet (20 sources) HMG-CoA Reductase Inhibitor Start: 12-23-2018 End: 05-02-2024 atorvastatin (Lipitor) 20 MG tablet 04/16/2023 Active Black Cohosh (3 sources) Start: 03-29-2024 take 1 capsule by mouth once daily Black Cohosh 200 mg capsule Active 200 MG PO Daily March 29, 2024 1:00am Start: 03-29-2024 take 1 capsule by mouth once d aily Black Cohosh 200 mg capsule Active 200 MG PO Daily March 29, 2024 12:00am clobetasol propionate 0.0005 mg/mg topical ointment (3 sources) Corticosteroid Start: 07-02-2023 End: 02-22-2024 clobetasol (Temovate) 0.05 % ointment Indications: Lichen sclerosus et atrophicus Apply thin film BID x 4 weeks then once daily x 4 weeks then every other day and ween slowly to use twice weekly 30 g 1 07/02/2023 02/22/2024 Discontinued compression stockings (13 sources) compression stoc kings Active ELDERBERRY FRUIT (5 sources) Start: 11-16-2023 Elderberry Fru it 350 mg capsule Active MG PO November 16, 2023 12:00am Start: 11-16-2023 Elderberry Fru it 350 mg capsule Active MG PO November 15, 2023 11:00pm Start: 11-16-2023 Elderberry Fru it Active MG PO November 16, 2023 12:00am Elderberry preparation (17 sources) ELDERBERRY PO Ta ke by mouth Active ELDERBERRY PO Ta ke by mouth 0 Active ferrous sulfate 325 mg oral tablet (1 source) Start: 06-13-2024 take 1 tablet by mouth once daily Ferrous Sulfate 325 mg (65 mg iron) tablet Active 325 MG PO Daily June 13, 2024 12:00am losartan potassium 25 mg oral tablet (20 sources) Angiotensin 2 Receptor Jeffrey Start: 12-23-2018 End: 05-02-2024 losartan (Cozaar) 25 MG tablet 04/16/2023 Active mecobalamin 1 mg chewable tablet (4 sources) Start: 01-22-2024 take 1 tablet by mouth once daily Mecobalamin (Vitamin B12) 1,000 mcg tablet,chewable Active 1000 MCG PO Daily January 22, 2024 1:00am Multiple Vitamin (13 sources) Multiple Vitamin as directed Orally Active Multiple Vitamins-Minerals (MULTIVITAMIN ADULTS PO) (17 sources) Multiple Vitamins-Minerals (MULTIVITAMIN ADULTS PO) Multivitamin Active Multiple Vitamin s-Minerals (MULTIVITAMIN ADULTS PO) Multivitamin 0 Active Multivitamin preparation (3 sources) Start: 12-23-2018 take 1 tablet by mouth once daily Multivitamin Active 1 TAB PO Daily December 23, 2018 12:00am Start: 12-23-2018 take 1 tablet by [place] th once daily Multivitamin Active 1 TAB PO Daily December 22, 2018 11:00pm Multivitamin Tablet (4 sources) Start: 12-23-2018 take 1 tablet by mouth once daily Multivitamin Tablet Active 1 TAB PO Daily December 23, 2018 12:00am Start: 12-23-2018 take 1 tablet by [place] th once daily Multivitamin Tablet Active 1 TAB PO Daily December 22, 2018 11:00pm phentermine hydrochloride 37.5 mg oral tablet (14 sources) Sympathomimetic Amine Anorectic Start: 03-29-2024 End: 06-01-2024 take 1 tablet by mouth once daily 30 minutes after breakfast phentermine (Adipex-P) 37.5 MG tablet TAKE 1 TABLET BY MOUTH ONCE DAILY. MUST ADMINISTER 30 MINUTES BEFORE OR 1 TO 2 HOURS AFTER BREAKFAST 05/02/2024 Active Probiotic - (13 sources) Probiotic - as directed Orally Active saccharomyces boulardii 250 mg oral capsule (5 sources) Start: 11-16-2023 take 1 capsule by mouth twice daily Saccharomyces Boulardii (Daily Probiotic (S. Boulardii)) 250 mg capsule Active 250 MG PO Twice daily November 16, 2023 12:00am Vitamin B 12 100 MCG (12 sources) Vitamin B 12 100 MCG as directed Orally Active vitamin b12 0.1 mg oral tablet (16 sources) Vitamin B12 take 1 tablet by mouth once daily cyanocobalamin (Vitamin B-12) 100 MCG tablet Take 100 mcg by mouth Daily Active Vitamin B 12 100 MCG as directed Orally Active Vitamin C 250 MG (6 sources) take 1 tablet by mouth once daily Vitamin C 250 MG 1 tablet Orally Once a day Active vitamin e 90 mg oral capsule (12 sources) End: 06-09-2024 take 1 capsule by mouth in the morning vitamin E capsule Take 200 Units by mouth in the morning. 06/09/2024 Discontinued (Therapy completed) Zinc (14 sources) zinc 50 MG table t Take by mouth Active zinc acetate 25 mg oral capsule (5 sources) Start: 11-16-2023 take 1 capsule by mouth once daily Zinc Acetate 25 mg (zinc) capsule Active 25 MG PO Daily November 16, 2023 12:00am Completed/Discontinued Medications Medication Drug Class(es) Dates Sig (Normalized) Sig (Original) diazePAM 5 mg oral tablet (5 sources) Benzodiazepine Start: 02-22-2024 End: 04-14-2024 diazePAM (Valium) 5 MG tablet Indications: History of claustrophobia 1 tab 30-60 mins before procedure may repeat X1 if need for claustrophobia 2 tablet 02/22/2024 04/14/2024 Discontinued Norgestimate-Eth inyl Estradiol (11 sources) Progestin, Estrogen Start: 12-23-2018 End: 11-16-2023 take 1 tablet by mouth once daily Norgestimate-Ethinyl Estradiol (Tri-Sprintec (28)) 0.18/0.215/0.25 mg-35 mcg (28) tablet Discontinued 1 TAB PO Daily December 22, 2018 11:00pm November 16, 2023 12:51pm Start: 12-23-2018 End: 11-16-2023 take 1 tablet by mouth once daily Norgestimate-Ethinyl Estradiol (Tri-Sprintec (28)) 0.18/0.215/0.25 [...] 2018 11:00pm take 1 tablet by [place] once daily Ortho Tri-Cyclen (28) 0.18/0.215/0.25 MG-35 MCG 1 tablet Orally Once a day Not-Taking methylPREDNISolone 4 mg oral tablet (5 sources) Corticosteroid Start: 11-16-2023 End: 01-22-2024 take 1 tablet by mouth once Methylprednisolone (Medrol (Reece)) 4 mg tablets,dose pack Discontinued 0 PO per package directions November 16, 2023 12:00am January 22, 2024 12:34pm PO PER PKG DIR Multivit, Ca, Min-Fa-Soy Isofl (One-A-Day Menopause Formula) 400-60 mcg-mg tablet (4 sources) Start: 01-22-2024 End: 03-29-2024 take 1 tablet by mouth once daily Multivit, Ca, Min-Fa-Soy Isofl (One-A-Day Menopause Formula) 400-60 mcg-mg tablet Discontinued TAB PO Daily January 22, 2024 1:00am March 29, 2024 11:58am Start: 01-22-2024 End: 03-29-2024 take 1 tablet by mouth once daily Multivit, Ca, Min-Fa-Soy Isofl (One-A-Day Menopause Formula) 400-60 mcg-mg tablet Discontinued TAB PO Daily January 22, 2024 12:00am March 29, 2024 10:58am Start: 01-22-2024 take 1 tablet by [place] th once daily Multivit, Ca, Min-Fa-Soy Isofl (One-A-Day Menopause Formula) 400-60 mcg-mg tablet Active TAB PO Daily January 22, 2024 12:00am triamcinolone acetonide 1 mg/ml topical cream (4 [...] (primary) hypertension] Onset: 01-28-2021 Resolved: 11-18-2021 Chronic Joint disorders and dislocations; trauma-related (4 sources) Derangement of left knee; Translations: [Unspecified internal derangement of left knee] 02-22-2024 Chronic Joint disorders and dislocations; trauma-related (5 sources) Acute tear of medial meniscus of left knee; Translations: [Other tear of medial meniscus, current injury, left knee, initial encounter] 04-14-2024 Episodic Other diseases of veins and lymphatics (13 [...] (2 sources) Other chronic pain Chronic Other nervous system disorders (1 source) Difficulty walking; Translations: [Difficulty in walking, not elsewhere classified] 06-09-2024 Chronic Other non-traumatic joint disorders (20 sources) Pain in left knee; Translations: [Left knee pain] Onset: 04-14-2024 Episodic Other non-traumatic joint disorders (4 sources) Hip pain; Translations: [Pain in left hip] 01-22-2024 Episodic Other non-traumatic joint disorders (2 sources) Pain in left hip; Translations: [Pain in joint, pelvic region and thigh] 01-22-2024 Episodic Other non-traumatic joint disorders (2 sources) Effusion of joint of left knee; Translations: [Effusion, left knee] 02-22-2024 Episodic Other nutritional; endocrine; and metabolic disorders (20 sources) Body mass index 40+ - severely obese; Translations: [Body mass index (BMI) 45.0-49.9, adult] 03-29-2024 Chronic Other nutritional; endocrine; and metabolic disorders (9 sources) Body mass index (BMI) 40.0-44.9, adult; Translations: [Body Mass Index 40.0-44.9, adult] Onset: 01-28-2021 Resolved: 01-28-2021 Chronic Other nutritional; endocrine; and metabolic disorders (6 sources) Morbid (severe) obesity due to excess calories; Translations: [Morbid obesity] 03-29-2024 Chronic Other screening for suspected conditions (not mental disorders or infectious disease) (12 sources) Encounter for screening for malignant neoplasm of colon; Translations: [Encounter for screening mammogram for malignant neoplasm of breast] Onset: 01-28-2021 Resolved: 01-28-2021 Episodic Residual codes; unclassified (2 sources) History of arthroscopy of knee joint; Translations: [Other specified postprocedural states] 07-07-2024 Episodic Screening and history of mental health and substance abuse codes (2 sources) H/O: anxiety state; Translations: [Personal history of other mental and behavioral disorders] 02-22-2024 Episodic Substance-related disorders (11 sources) Smoker; Translations: [Nicotine dependence, unspecified, uncomplicated] Chronic Unclassified (1 source) Pure hypercholesterolemia, unspecified; Translations: [Pure hypercholesterolemia, unspecified] Onset: 01-07-2023 Varicose veins of lower extremity (20 sources) Varicose veins of lower extremity; Translations: [Varicose veins of bilateral lower extremities with pain] Episodic Past or Other Problems Problem Classification Problem Date Documented Da te Episodic/Chronic Other non-traumatic joint disorders (1 source) Pain in unspecified joint Onset: 01-28-2021 Resolved: 01-28-2021 Episodic Results Test Name Value Interpretation Reference Range Facility Coding Summaryon 07-13-2024 Coding Summary HTMLBase 64 QkwmuzgzPDc5fFv+PGhlY WQ+CA5PBRFdP83rgZNgwZ 2wC2CYWZrYVdizGZUMSGg AHuHwhpXlBX8zhHOhEIMk IC8+HZ3yARYlKqlbyPYxh 6R3eFM9E60xix8xCIbcuP A9HVTaSjMjznfhj5oayIn 6IDcuNmluOyBt SARslU80VEK3qV60Ug83p EVtlIWlo8pbjFh1OqKqRH XiPGQ2bYoeBDvam4DcJXS eU10aePOmp5M4 ENFkqKrpmBPyTmGhtOU2x P1dXFuitvvwi8xymojnCr m6su11eZHjz2V0oYG5Z4W ameA0GZTmxYYg UkccyWKAbA6mzihlm4hvk lqxRpNbYXMyUPu2DDl4VS HgqHeqTwPtWS90ORQ5RDH duwPsP4DiKPTr eBmlSxK1y8H1Ku2IX5OVM jaiA1KREVBYXJpysDR+PC 67qk20R8LnZpioIor9QGA zTZP9oQL3tU2t HEIlSQlkb7A7gWU3N7Qvl dEeca4jm6scSTNeSWvbF5 5ffWZxg3L4DBCocIJ4UKV psCmtNyGyvS19 Oyc+BYPjmVoen3DaVzkto 1jox0ssqAz9OrmvFJPruj EejXxrITV7s0CpCh3zJAB ppMH2fNR0pU2g HrRuVvJ9TJvpX299GaOvu YFgDgbbQ05pR0VuyVY+PH BqRit6BJFgvYiyPH0kA8O hZGRpbmctbGVm pBzqZN2iWZCzmdcyWXOgq P6tQAJpF0q6XxSlEpQ2OC phF2IkNMShfliaQs01oE1 hCiSbVwV0ITdf B2SctbR4CMOziUPdINyzF IX8Y43dv5S3THJiNHDiXC O2qDD0iJ9qtAkvvvnihPL mdDsgdmVydGlj ULtyPLvyR760BKTpeNndL kNvZGluZyBEYXRlOiAgMD UvMDcvMjAyNTwvdGQ+PHR iTSF9cObyEHAg yLJtMGsjNb5eoJujoDysT J4kOVEqmyydVSAymC1rUG KhiCYecPctPT9rXMVgegm ap485PuDiEEI3 VRZlrQJxV6GjnS2mKxWyP LXrCVYdU4BymXCfMBlcS5 93QRahGyN5DXBbmwFfW2K sLWFsaWduOiB0 a8S6Cj8Xu5ApbhhuI1Keo JVfVnDfEagkUBl8X8IuDq wvdHI+JM68EVAgWD53NOu 2PCA6vHchIRjy IHLxB4WqhY2sAiGjZDUxD GRkOyc+PHRhYmxlIHdpZH RoPScxMDAlJyBzdHlsZT0 rMq7gHEArGGIf kEdeyTTpLhNqx2kyNBIbE AooSD1vqCucT9AqeYX3IF Ioj7m7Rv12C63jD7PmvVZ +YZJwzQS5bVH1 zX4sNjIdXaX6ZOpoE446W nKoiMTnUysmk5jex3tsmW r4XbS9LQQbztLddAkcRXC 0k7RyRi09Z46g IHdpZHRoPSIxNSUiIHZhb Dsiaw4idQ1gDm7+PGNvbC E8fPJ6qS2fHdDpEiF4RJo oX917ZvBjbIJl Bpcrw0cgg4mjrFv8TdEiW WZhplWugCcuYSR3a2XsFg 57N9HlrGnzo5VlInm6se1 7sZDjy6A3bPQ4 Q3LgLYHmmguhpEGojTtxB Y5oTAUpgikvAGDujS3yEM RqJ5t0DcLuTlP0EReqO7I ycsJ1MRXzsRMj HCLqtBOHgZ5sdrcnq1dne zdqOwXuVNWzKKo0BXc0TY IpvFatVvPuTCT2WzI0XHT 1hLSxgF1urIhj qwecpE7mBmj+XOX2fBVwb QYAIK0cKorfyHF+PHRkIH A3hJdmHGpiXVBboU6nUET qI7r8EbHiGiE5 ZAfaL8ZrsbG1YEBjiIOcS LSksFYTyO7qribow6yvqt fsVkPdYPJfBHn2LZw5IAO saWduOiBsZWZ0 ItR4BHI9vEKwrD9toGimg okrtB8uSds+QmlydGggRG N8YEm6F5ArMxy0DBUmhBn rKO5vmKRwGOwm Ht6ncDvxvIzeVC2aLZBho ptbn942OmEnz5idJSTbvI RpWXxuVNB1O53lt3X3IQG qLVDbUER2aFE4 aT6auGksxomgmSUplQofd jRbjRywUDhqNScmS010ID NavGcxEcRjUJw5K4JtVcp 3RCKhgRjbDB4n zPPbJWozLx1fhGcuzGuhB F3sLVKgzjurs883HlIth3 rzDYJfzRFpJJflHLM2Q45 uv9Z7IOSoCFEu JQL5uND4aU8joBluxxlez GVmdDsgdmVydGljYWwtYW oxX083NXZmyPvgFjAtzUf 4E9ZpLgf7DSDo mYevAJ5luTUiEEiwXv8gf IdjoLjnGM6wHEEouqidm3 30ZlGru4jrEYYefPOgIUs vKVC9V96bp9X9 KRUmPPGbAHA5oNO0fA6hp GlnbjogbGVmdDsgdmVydG wkRXelVFzlL497ENSmrMv nPlBhdGllbnQg JNyoCBg4R9UuEtupqYU+P D63OKEpSA24bOJvpMNth2 zzdHb2IrTfQMClRWR4oKq tXDwrw0HlKWKk O97gaVKuu2U2XHEfzGyin RVgRcEwgSG3mB6iRYlplb ubx4ueudqtWsuzk2awdl4 7fL91Y18sHOhx ZHRoPSIzMCUiIHZhbGlnb b5tzP4lKd6+KQSuwYX4wN J9sW3nBQBxApX9NXpfR25 9InRvcCIvPjxj v4jpd6kbyLd7ZtU7ZKVhd bJhmZfkJVR0e2AmYt81G4 9sIHdpZHRoPSIyMCUiIHZ pqKcqry5kxW3z Ii8+DVEmjEF6qAI1sU3sC qUxRgY9RXccO542DlVkfI FhArgpZ72yP4AmwXY+PHR zJrz7XXJpnSnn IT5ciXDyYPinUt6iYVD9Q nJqYxCfUHzcA2KgXMEbpn iyvclkqQK8EJXyHHHkaG7 4Ff0ugXviIQZx yOWHvV5pjmgkn3pisqbdV aGlKVRcEDo4GCl3ETTtfE tjLgOaFFG9XzA9EPX3bCR vqS4ieMdogoli jU2iI1LrXJLlvaayVn22v X8pIsMqZcC8OFhzJxm+Uk pBCUqtVALAG4taABiQDzs vdGQ+PHRkIHN0 aPszAVlzENGctJ1ySTMsX 4v2YjRcUzV4ZQfjT9AkSJ QvgaylWe38gU8vVhLlJkE 9KOhvW2FvpmR4 ABRseHWkTZdaSFX0L59pg 2C6QKOpEQKvFBL1zGX7aA 1hbGlnbjogbGVmdDsgdmV ydGljYWwtYWxp P494JKEhsQscPrSzHgO1T kF4LkV2Z6KpBrt0UQQkwW fjOP4erJCiHUfhMb2gfKn dfMjoFF0uPJPn zhqbONFzoF1gCLSibTCrz UvgDU1qZUAafiypg597Pf JyAOD0LKJtiQZlB0HxvP0 yOiAjMDAwMDAw Z7WbfDQtDEndU307GIasG cX1VEVistUpG1LePIIgfA yiFhA2b1I0Wx64CCTKAFL yczwvdGQ+PHRk JSZ4wFfoBTuoHVVhcR9tZ NEbM7g5RiHwVxD5VGwuE7 FyOKGjxmpnOl79xU4dPpF eGuZ9EConH0Yx lqG0QBRwaQJpKVwqHCV2Y 50az4S8CNOeAUVtXXK0uA L1wU4wzZwicfjrqDZlaDx gdmVydGljYWwt VFdpF778JZWxgAolYwRAN UFMRTwvdGQ+ALLrXQC5fG cfXCjaQIKkvO7gMDEeN7s 9LlUxEfI9SPts R3YvLUDzdgnoZv23kS2xJ rUnQuK8BQqaB1EkwlI7ME BowABoNTbgHSC3A08rv5P 8OPTbNGNoGAJ1 tMD1qR7htBljlffyqHIqb DsgdmVydGljYWwtYWxpZ2 46IHRvcDsnPkRheSBTdXJ fERL3TJ58DH97 H1JsLirllJMeuYW+PHRhY mxlIHdpZHRoPScxMDAlJy CvjNfePY4jPy1sVNLqGRM vbGxhcHNlOiBj y9maIIFcGLdxAB3yqHezI 2RazNZ6XTNgx1t2Xs14B1 3iX4WcrRH+HHGuwRB4rKG 7aR3kCtStZdW6 XGnyH075VwVcdBDcUctja 1gct7hopQb3MoQpEJAvsi OexMqwARJ3f0ErDi58P11 sIHdpZHRoPSIy EQTbTFFchBmbea0msC7dD i8+RZRoyQX8kRC0yN1xBx NvYkN2TDfxS685IfJijUJ dRytlG35vH0Yb dXA+XZNrVeu0JLBcfSotK J6vdRTcWUydSx7mAYZ2Nh FjChYnLRtxJ5NqAORhaam yybsmtRU4QUIz JJUhxO72Gm2ymIosNw7iX MKyZEQ1LADebOSwX2CgjY 5aDkKlYOKaLZKbK3MnwTI wYTjzP964TVri SkF7UMWnuuUeC8CtOHAom XpyBdM5i0W1By6ZdKlaiC BzRH1uPxBmPJv8Q8NjKnc 4YEZmaNzgOH8e aJZpUDgzQk5hvTaxkHtxB I8vQZTflknmb820IaWqv2 eeUXTdsEEgEOkiDCM1P94 ss8J1ZAFjIFUs AUJ3eQV7bW0xySoblxlol GVmdDsgdmVydGljYWwtYW pyA164PPFogZzwUdIEIci 8H4KaHna7QTIe mGxtLF9rwPCkRDyoOq2jm QjhyRzlPJ5xWDLswtzfb0 39QoDlv8jhGZUdgHYuTVq aUGK1A79wz7W0 ZLIbVLLuSOR0oNZ2hJ1ik GlnbjogbGVmdDsgdmVydG ldBBfpFDymN631VYQovNx dVr2DClr8Z9Eh Ere7MGQpzVgxSY7ggYBgX DgcDl8rrSbldCtpAB0bNL Mscezrp345IhJey9mxWLL wcHQgVGltZXM7 J85vh5J1NJRjKQZdULJ0n DF4mG7keTsuunwyxLZknC gwqxMzoDabEXncSVsnO77 6IHRvcDsnPlBh eWVyOjwvdGQ+MY52kz64G 3WyUthcTxk8QAQyPQD6uP L1yD4uVOCmONxkv9W5pPZ 5B0FndoQsek7k b2x (more content not included)... [facility] Coding Summary HTMLBase 64 UewlcxebGXt9fXg+PGhlY WQ+LT7CLJRpA16sfXCmkL 6rB4OUAFnDGrhkPEIPKIh KRdVtooUoIX5vuPJsCQFc IC8+NP3oJPTxBuhvrKQpe 5G2yWG0Y45ntc0jEFuxsV C0JBMiBhMnutxcc1kpdKb 6IDcuNmluOyBt DQYrpT30ZPS8bN26Mi54v FWluTPhk4fcnMs5VwFyPR PuGOU4uAjaZLshi6SuWNA uJ83bvVEve8Y3 MGYhkBebjAFcUuFsdUU4m H9aISfbwjuyp1psqidzNc i0iy83lJQwk4J9iHJ4W1U nivF5HRHvzSGb OhcloFCRhT4fpycja4ooo rmrLkTsAUIwROv1BPo6VR XubDmsRxZvFK40DOM5HCX ielEpF2CjMJAa wAmyCxN0m7S4Nc6LD1OKO yrpD9LCHZQKOPoruRQ+PC 80ig23C0DiIoewFpw0PHS ePBJ9lLK5fT6f JYVmVMejk4H9gQZ1Z3Gcr bYlpt1ls3vfNPUsHPydN4 0cxZEyw0Y4XODakQD5QWZ xfHduDmYuiU74 Oyc+KRMckOdit7TgXjqba 0rxb2vskFh0HfdlEOHhth VkfGbyHTA4n6EdHb8hHSI ngGO8yMG9dT9q YlTyRnW4ZTyoO482MiVuk DOfAfgaB80xG1MutVL+PH LsKsz3AEZtaTkaUZ5rS7V hZGRpbmctbGVm vLcgVC6kSWZrkuqtXHTpo O9sLIMuS8v7OcOoTdY7UY rfL2UnVETjciatQc74dP1 iQnWgTaT0EPas E5UxgrC0DSGynKVgYJawT WG4L07fg0H6RUHrPVJrEX Z4jXJ6hY0enZyddkgtyJB mdDsgdmVydGlj VEyvRSehI352MXNtoPjtE kNvZGluZyBEYXRlOiAgMD UvMDcvMjAyNTwvdGQ+PHR gTWF2dIokHLXc yHZoKSbkRo8ayOiijMoaD E3uUVZlqevcWWSmhR8mCL YczOUjxCzxZB5pFNSnyad mp819TdYsGKP1 GHUkgIUxS5QytW4kMuAmN DYhJIRiM7DexYXuSTtzA8 37YHkcGwK4MHIpegNsH3S sLWFsaWduOiB0 a9E9Fo1Xk1HqxkkvB1Woc TOwLaRgQfehSXg9W1WkKr wvdHI+CD75PHSeHQ02BMz 0YAM6cGleBBel FFXfQ8DmdM7pZyOePXUtT GRkOyc+PHRhYmxlIHdpZH RoPScxMDAlJyBzdHlsZT0 aSo7gOHUiFSCf gZxozPUeYrOlf7rzRHSzW QbkNU1apZzwM1MqiLI3KU Cum5o3Ft61P75vC6UthHH +CIAtkLX3iPF8 bU9nIfXgGvS9BWltN830D gMxdFZoJncoy4rgw4islD t8ZtV7GXNmppCmpLmdZPP 6m9DuPu15K35w IHdpZHRoPSIxNSUiIHZhb Gxubs0xoE2fKi5+PGNvbC D1dOQ4uY0sVxVwDdJ5HVg hO260UeTzxRMi Taxuo9gar5phdTu4EbEkC VVbrfUbcTasVDX5d2OeHo 69L1FpvRiaz5UnOhm6gf7 7lVOcz6U8vCE3 Q0LwEWSenhjuwQKxfLalH U2fVBSukfwxEWUrlV8dEA TmN1m7IqJsQpC7EQrlK3K udoU0EFKlhAKc LYRvnBYAoG4mwwuol5lwe lvxGcNvTFSeOKk0FPy6TP EcbAcuOaDeKIM4UiD4PHA 7mSNjrR4yyFhw vypjrB4hQda+PBT8nWXtx FZLYO9cErwqbPQ+PHRkIH W4mTkqJUxeVWHapX9wSEZ hN7c0MiNiQvB7 CCblH3MxhzD9PKIpaNVzX KXrlGQIpC1arodyf1oupk qpUjPqEPKlBEc1ILj4YWT saWduOiBsZWZ0 MdK4SLK2lAZwpQ4cxNbkp huszV9hCqm+QmlydGggRG M2YNc9Z7TsKfe4IGThqCj wIL7zvXFdZAfn Ql7kdTwkhVmuWF7yCGGee mkuk032KlIia3qgENFnnP EwQOozBKY9K26oq8M9GWW mAEUaHPL4cBI4 iC3vaWqhwknswHQnuBnrd qPezVotGVogXBzlQ306CE VyqGwgVrNsFPc3J7ZfXev 9IWIfpNatTP3v iHYfWUngIx7xpWwetWdaE T1cLJYtlpdaf950LbHoj1 wmBXWvoEQsPBwmNOL8I58 bj0U5OJFaJXWa LAW9sLL9bR1fiBhjzkxzv GVmdDsgdmVydGljYWwtYW rzL823XHNtyRbjFnZyyPb 9Q7EyLrd1MMGj vRqtWN4pmGOxYWydEx2lg AbkkKehAA9pYJCtxsnim0 22CaVrm4kwJEUckKKfBNs zDEC0K88dg4F5 YCEpASHbXYZ4eNB5bT0xl GlnbjogbGVmdDsgdmVydG hnIHqsFHieT723QEMymWr nPlBhdGllbnQg JUraILt1T1VxLljexEJ+P N49OXKhQH98fOLitQAtd8 tcwDr8IeTdQTAtXWW8qCm lHXdcn5ZnRZOt D30iqUAbz0Q7LYUmjGodg GXzLiBplMO4eD9kALmezq lje8jpceauZvdho7wsax0 6jC08U91uGTbr ZHRoPSIzMCUiIHZhbGlnb x2xmD2tFp7+IARopSE6dW B8sT8xSPGzApD2OFhtC13 9InRvcCIvPjxj o6oqn5meeDh6KgM3KKGdi yStgWmjEYU8q4GyNp09M3 9sIHdpZHRoPSIyMCUiIHZ vpElihh7dsA4p Ii8+GOKwwIE1dTW4wB1hA aScExD6KJxeC578KxBrnD OvKsidR31wD5QdkPE+PHR kRiv9BVPsxCnp WA4ejMMoZFxyOe3tKFU5S uCyFyTyOHldD4WpSWOeiw tbdwkwhZG2EGIgUOSpkX4 3El2ctGfdJCOl oHMFmL9qusxco1vdhxwxG mKrKROiUWq7LIb9RFWqoF hsCmHoSLB6QoS9DKY7vDP hgP6deRvvkcnp oA2yO9TvFJOcnetsOe03c U1oJgHiZkU3ZXkkAij+Uk sUQMfcQSXDN7doTFhTNzh vdGQ+PHRkIHN0 wNfoYLfrCURqwP9xLTIjA 8r6SuXsJoX6KRyuB6HmXA HfgxybCa78fF7eQzOkKrI 1VImkY3CwpwN8 HPRqbCFaSAxvXVK9B85qs 6T4HTDnOQCyZGX9jZM0qV 1hbGlnbjogbGVmdDsgdmV ydGljYWwtYWxp Y033IYDzjPznNhGuOdO2O bF2ToS4O1NzDxd2IWBenK dlGZ3fyCDvTFooCp8ocIo shRtsIS1oEDHn maxoMLRntW7oKYXkqWEsl QrnBJ1nQAWzmdczk427Mb ZiEEW8JZQrsZAjR8TotN7 yOiAjMDAwMDAw N0WnlADuRXpsW119FMelW cF6MPSqlxIvN0EzLHApmK yqOgV2m1R2Ho20WSEDJUB yczwvdGQ+PHRk TFV9yNyrLFjgHYOejX8tV LScK7o4MnNyByC9JOrkP9 YnDSDmeumdNb38nV6lQjJ aCaE3SPpcM7Ry oiT8CBLakLOvWWciDSS8O 26dq5M5BYMjYTExVHO8bL Q9yG1ceQiysrkzgNVzlBz gdmVydGljYWwt NTjmY289NPUnxOutZsVCH UFMRTwvdGQ+AYVqCIX5oP kfXGwxMLZgkG9aXGUkF5b 6WcYcUeU4KIxn J1IiXQNqfeetCr33sS2oB qLdNrI1VDwzE9VqiaZ3KQ UpaZAsIGbrKZM5T76dg2A 2SBJqLBSiTGY1 fRB0iG7qyVzrkpmxkYCio DsgdmVydGljYWwtYWxpZ2 46IHRvcDsnPkRheSBTdXJ kYCQ3ZP56FJ39 C4HmEdsnnOVdyEE+PHRhY mxlIHdpZHRoPScxMDAlJy XluFrfIT4mPk1bRTAiYBL vbGxhcHNlOiBj i9bnUELoDZnsHZ0bhBthO 3RixKY7RFIwm9n0Wo55K4 7qW0BltTJ+TEAwuYT5kXL 3aD6rSsFsJkI7 QEefP477SdUjsEKtHrbal 1cob0dnoEj8LdYwYTRncb CriBfiVMD6c1WePz73V56 sIHdpZHRoPSIy DAQtFEIikKjnvp5itX1xJ i8+IXWgtCP1mCN4sB2aHd RbPiU4YPuzA947MqBxhZX kXpzfN00uJ4Nx dXA+UOKzAel6RBZwwTdwA J4lxHWgQAawMk5zIIR8Xw SgInDqEBzcE9ZqGAMvjdf anfrltWU2QCEh ARRdoX51Vn7jnEboSq2fI GPfZBQ4ZNXegCRyE3YymL 5wEbOhGKUiQJShO0DrqCV dJVtkV611SRxy VmY3UGLjjfVnC9OjVQUtr QkiFbL6p8A7Oy9MgFlcaB IjOV5nBgZfYAr3C6LfBqq 3VXSheOfyPL7i sHYiUNliEn4utBmffJqpU J6wJITkouvvm233OdBey9 auGSTnbNJrMHrySOI5F44 iz7H3QOYyCXLa SOR8zIR8vP8uuXcchhwsz GVmdDsgdmVydGljYWwtYW sjQ569QNIjvFmkBsEXXtp 7Q4WwNcb4OPCi zQgnJI9msXDoQEawZi4gu YvgzNklEK5wRGUmqrafm4 74EyItx1buBSXdnSBhSOp lIAR3E59ff6P5 EAPkUEFySYX3uQN9dC5ix GlnbjogbGVmdDsgdmVydG fcIDbfWTwmY293PNEfaLf cPh1BTcb8R0Nz Vgq9RPBevCwpAY4hbINqK KqdMb4orEaqnQknII9pZG Pgsushp512XoKrd3dyEZD wcHQgVGltZXM7 D94bl5B6HXOzKVXrOCF5q EA0zD7qyVdcvkcyeDVzoO yglyKeqTcbOGdaVRfxT75 6IHRvcDsnPlBh eWVyOjwvdGQ+DJ78zm57A 2BjYnmiYap5MNNxYQM6xU F8bC0wMVAfQJghm1H1vVR 0A4HmnjEzgj8i b2x (more content not included)... [facility] Coding Queryon 07-05-[address] Roth Please review the Op Note for this patient. You state in more than one place that a medial meniscectomy was done on this patient but you also state that the medial meniscus is 'stable'. Which is correct? Please make any corrections to the Operative Note. Thank you, Justine Speech Therapy Teacher Ext [phone] (I will be out of the office ) [Electronically Signed on: 07/11/2024 14:59 EDT] ANJELICA ROTH DO [Verified on: 07/11/2024 14:59 EDT] ANJELICA ROTH DO [Transcribed on: 07/05/2024 13:59 EDT] [facility] Coding Summaryon 06-30-2024 Coding Summary HTMLBase 64 FhvdmygmQAw5tBp+PGhlY WQ+BL9SXVCoS44ywRAupW 3jI5HLKPqLFqqdOBFPDHe UXhRtcqUtJS3iyHImDBTg IC8+JP2qVRUuLnlzoGXgc 7H3qJH2W33xvn9zOLyjeR V3MPJxBeZwpqros3xrbFb 6IDcuNmluOyBt LGAvxJ88KNA3cV34Tm27t ELtjVKyz0ibjGk1UsRsRE NmDKV9sVqeREaae8WhBUJ nO45nkUHar4C6 VFOmnUmwlVFxGeZfsZC8v K7kHXlniwazz5olgcphCv k1zb67mFDnb3Z5eQV9Q6C gteO9VFNuiHCh WtvuvBGDxC1wdvtxn2yml ogxYwRtPIPmCUw8UKi2CC IljKlnNiEpXY37SWM5MMV xsvYeS1LtYMXm eFkfAlS8x8W2Ya9ME6CYL ilmK8BMAWUIJLvsjNK+PC 12cz42E5MaCgzqIpa0TFZ vGHI8kKI2oU0h UIAdTOdzn1B6fJE2S4Erb bGtjg4do8hwBAAxAXrnC9 0chFUzl7I3HNJjqSP5NMM puHsoErGsbQ03 Oyc+JXTlrInwk8LwBfhqu 1fih5ujhVk7NzshEZRalq VciEajYDR7n1YaGk1aTXI hbOG9yWF2hV4x FfWlBiI4LIatK827IrAog TQkWmrvY64dD8RyzDQ+PH PlBjy3AVGqqDizLN6pZ1Q hZGRpbmctbGVm bMbuUE2xNUQaraklHFFqa T1kCDPcJ5v3BmZpKuX5UE ebN4LoQKFfzysaDg56uJ4 kKeTkScT2CDlz Z5KqwgG7XIBkpFRjVYvbO KZ1T30ny2P4GJWjIQBiIJ G3tGZ8eR0qnZuiikpncDK mdDsgdmVydGlj WIflVPalO921JVDozFmgW kNvZGluZyBEYXRlOiAgMD QvMjQvMjAyNTwvdGQ+PHR wZQL7oMczKFBe oKWhLJumBg8qvZiscEctH X3wXZCuuulwOOBodV2kRQ QohPVuyWblXZ7dAFCvyoe ge313HqZuVDN8 UNZaaLRjD3GtqK8eCyBtI AObHEFjY3ZyrAFvDCkuD2 52RMduVaI6WWTlprOvA9J sLWFsaWduOiB0 y4A3Ym3Im3ZvdtnhV6Kdw SZqIrPdBvquIGj6A7SoEj wvdHI+OM63VSIaHS89IXf 7AXH5wJqlDViw TTRlL3ElqS7fDbZzLXNwV GRkOyc+PHRhYmxlIHdpZH RoPScxMDAlJyBzdHlsZT0 uQy1cHEGjEMIl sDcpzNIbLlRkh9inMRHwE KwyIK8qmQhtZ3OyhJL3SY Akv1m6Zj12H95rB6EpwVK +HCGpjAV1sCP3 bA4lEnHsWxX0DJgxJ207E lLysBPpIdrxr8kui2wgtA p4VyF9ROFtifGtbBrcNCY 3o0IpCy29V31v IHdpZHRoPSIxNSUiIHZhb Ltizs4agU1aDp6+PGNvbC O6mMP1yF4sXwIfIxD7AUq hI143IjVydGOz Xuvly0wef2cjyTa7MsXcW CTljnTkrApnCHT6o7RmSz 28L0YgfRwhc2HjKbb3ef5 5oYVwx8S6bOM8 L7ZqULDihmvndQAzuZrdC K8bYIXczrldRZJicL4fEB EtT9h8AaVqSvY3DIerA0P fcjT9YUImsGXw PYSxuINQqF9uauvmb7mfg zeoEoRiUTRfWSi0ZVk5TT WfmAssZsIfFIU8MrF9FEU 3jIQsdI2qkDhw imowcT4iAzx+VMD0iKLkg UITLW1tZowseMW+PHRkIH S9aGbyTFtcQQOulN3hHEZ mB6f7PzSxFhL9 OGqnV1TvaxJ1VYFhnDIqL NGmtRXHoT5dlwjbi4phcd jeZvZsAUAuTQd2QDt5DBN saWduOiBsZWZ0 RkB7ZMP7fZFtmN2fqFfba fwtuI3lBxg+QmlydGggRG E0DOt0X9TmKay6ZVIaePk wVU3onXNvELnp Cg3yuDchdTiaXK8sNEAeg lxyc955AzWre0xnFKUhmM MiAQgtOKA9U57iv3O5OSO wZDClOSJ4hGL7 rQ1ihZfvlnousKUpoBqkd kKgxXcdKKmbUWptI940YJ HekEzrGpQjSEi3M9MwHab 7KHVgtVviXF6x kFKbAOovGl0jxEairItjQ H1lCHZagnifg474UwFss2 hwZLMmnYQsSRgaCRG0N42 nc0V5RFUpJVWf TGI3mAG0cE4ayFbddrerc GVmdDsgdmVydGljYWwtYW oxC090GLZxrRksUoDvhOi 9X5IeDyh4MAAy bUsuSQ1pkYJlCSokJt3hy TtuqHfgCJ3lYZFghqpdx8 06EzRux1rlAKUvoEGdMOc wQAU1T93vf2R4 TCBmKVXrMUH8tBM9fA9lw GlnbjogbGVmdDsgdmVydG arBCzlSDzpR951OPYjyEh nPlBhdGllbnQg ZOgyYXs8Z7XyXpxhcYX+P R17BERsZB85jLBblXPbb0 rtuXn8DhPuTJIvTOP6dYv sSZecf1InWBYa Z96qqCIro7P5CPMdmJyfn DHdJnAryVK5yK2cDFfwbn xde4wepakjKtpwo9onhv0 4fV40U95bMNdw ZHRoPSIzMCUiIHZhbGlnb f5cdB2pNx1+IFStdHS8fR R9sE5iVOSbFhO6ETodE46 9InRvcCIvPjxj n9lzk3yryJv0ZjZ1IKNdm cBtzFxfTII2s5ReXp57C7 9sIHdpZHRoPSIyMCUiIHZ wwQyics0rdG8s Ii8+IFYshEW2dVI4sP8cZ oKmRyL2JIvgM007HzRqfD RgUwzpH77gU9RxhKY+PHR eTlo8IQIfwKvc RH6oyKQtOIwhXp5qHGI5J eViBvMuEWqcF3IyFBIgmp tspnryrNP5NLYxOZLpkA9 4We8mgDsgYFVd gLAXrY3jyjgty8iwlpdaX rLwDEZrCHw3DJt6URXyfK qlGgWmAOQ4KbP0VAJ2gSJ ojA7xpQriotne rX2bH4GlLJMjjtgjXm84w A8nMmWtUoY0RUwzYee+Uk vHPIhkADSCW2yuAIlCRxh vdGQ+PHRkIHN0 oJnkLJciAPMbzW7hKLIhN 5t3GuPqMiI4KSoiD5QoEC GwcdynOj71eO5gHsBtCpY 5XDikH4OaodC3 QCBnuXFyDHvpAPC4B98xi 5Q7DWDxMROsSTE1sVG1eI 1hbGlnbjogbGVmdDsgdmV ydGljYWwtYWxp N212YZSirGdgYcBhTqM4Y sV1EtX7B7WkGuf6ONYxoW ktFR7dvBWyPBmtYe6vzDv ntDwaFG8aZVCk eanxUOPwiX3yHUCukGQuu UjlVS2aBTVljghuz975Yu BzNMT7ULYamHBmN4PjlV2 yOiAjMDAwMDAw M3HzlVObQOjnL281EMwfN uJ7LMNhevGmD3FgBYOrwZ vcAkF0r5A8Vo24SIAUIEK yczwvdGQ+PHRk TXJ5mOweUJkxBFCbcC1sH GKsH3k7KpZnWdP3CVdmH4 DhVICxdeiwZl67vW1xGxZ gNvC0MRiqC1Tr bcC2LPJeiUOvURfhTJA2W 59oc8Q9FZMcNSJxJND0wU E3cY1pkPkyjkmulOYynOf gdmVydGljYWwt YYscE208XQYktAktFeYPI UFMRTwvdGQ+SDScOAT9zM zfOJjwFAYcqX9oACTjV2f 6GoKyYhE3TCkx E3VlEVGrhblsPa22vM6nY iGpUvN6YNvhF3IjlrP3BV YevDKfMRngVDX0R34yg9F 2ZHWjTGDnKNL5 zNX4bB5rpVyonhonyTSuu DsgdmVydGljYWwtYWxpZ2 41DKQvsBpuWp8PXO28XA3 3D5ShGxbozGQh bGU+PHRhYmxlIHdpZHRoP IesZXBzRwSgpDnvYS4yVe 9yZGVyLWNvbGxhcHNlOiB eh4baLQFuWVmd RF1mtEbiU5NutNT1HJKoc 3m1Ra91M15sK5VdrUD+PG JscAJ6zES5wW7dQfEfLnO 1TRhaO937QnZx yOUjEdvwq8tyl9depHw6Z mPkHFKwdiYckCcwOVI3e2 WyQo77X67fCBevEDGlKAL yMCUiIHZhbGln ib0nmZ6cUv2+SLOqyOI8l DG3lX3hPfIrIoU7LRvhT6 34EjTpbXLpDhplS48dR1N vdXA+PHRyPjx0 AKDztVdsNF4kmWOxORhnW i9xMCY8AsUoDoWmDLelW3 InOGFwryyrdbbiwWW2XMS fONSizR22Ei0h dRiyJi7iDPOwEAY4ZPGtv AUcZ8KyfC9iTmTcCEYnNN LyS7MzeOIaRVljN839DTr dRmO6GCYfsuPy N2ZzDOUeuLomGaW6c5Q0T k3CcUafuCYgIO8dEzXfGQ j1R4DmQer4OURurXasXQ2 ryCImBLyiOu2p aMvbeIjeXN0xYYXhyafwq 981CmCke3qlOQWkxJCbLF cgEOY5F88ia5S5RUGtWPV bEWU4bRH2cJ2z bGlnbjogbGVmdDsgdmVyd ZjfWThwUGqoH497WLQgfZ tdPhPXGka9M1KyXvu6QAH uaJnfNV7qaIMh LVmfLk4ryGmlpBgmRV4kI LAbnfutd968TuBgb4voJS KfhKKbHBigUQS6M64wc5J 8SLToFNFwEBI4 xAZ2vZ8acEnbwtpwkTXdq DsgdmVydGljYWwtYWxpZ2 10TRDgyYidPe4VHov4S5U mYcx8XEYmtUzi NR2qkHZfRWwfTf0fhZhfg RmmML3dTPOcjdbja572Xa Rdr1hhLFRddAAsPOevFIQ 9J01rk5H8FYVo PGUjRLV4hUG1jX9ooOuxq jogbGVmdDsgdmVydGljYW enYDtdZ307QFRbdXrfGyI heWVyOjwvdGQ+ MD95cc40C9UhAkmnJhy3O XCvJZP2qQS5jI0uYTJbON xaa1B3uDJ2E1NsxvRijr2 cy2hyMSOjRDsq Y29 (more content not included)... [facility] Consent Formson 06-27-2024 Consent Forms [id number]#1. [facility] Tele[facility]ps [id number]#1. [facility]-24-2024 Anesthesia Note Patient: AMALIA ALLEN Age: 48 years Sex: FEMALE : 1975 Associated Diagnoses: None Author: William Weiner DO Postoperative Information Post Operative Note: Post Anesthesia Care Unit. Physical Examination Vital Signs 06/24/2024 14:00 EDT Heart Rate Monitored 72 bpm Respiratory Rate 18 br/min Systolic Blood Pressure 122 mmHg HI Diastolic Blood Pressure 65 mmHg Mean Arterial Pressure, Cuff 84 mmHg SpO2 97 % Oxygen Therapy Room air General: Alert and oriented, No acute distress. Respiratory: Respirations are non-labored. Cardiovascular: Normal rate, Regular rhythm. Neurologic: Alert, Oriented. Review / Management Condition: Stable. Assessment Anesthetic outcome No anesthetic complications noted. Plan Transfer/ Discharge: Patient can be discharged from PACU when criteria met. Condition good. [Electronically Signed on: 06/24/2024 14:10 EDT] William Weiner DO [Verified on: 06/24/2024 14:10 EDT] William Weiner DO [facility] Anesthesia Note Patient: AMALIA ALLEN Age: 48 years Sex: FEMALE : 1975 Associated Diagnoses: None Author: William Weiner DO Preoperative Information Anesthesia history: Patient history: No difficult intubation, No malignant hyperthermia. Family history: No malignant hyperthermia, No prior anesthesia problems. Review of Systems Constitutional: Negative. Eye Ear/Nose/Mouth/Throat Respiratory: No shortness of breath, No cough. Cardiovascular: No chest pain. Gastrointestinal: Chart listed GERD, however the pt states that this was some time ago. She currently does not experience symptoms of GERD. , No heartburn. Endocrine: Negative. Musculoskeletal: Joint pain. Neurologic: Alert and oriented X4. Health Status Allergies: Allergic Reactions (All) Severe Morphine- Hallucinations and vomiting. Canceled/Inactive Reactions (All) Severity Not Documented No Known Allergies- No reactions were documented. Current medications: Home Medications (12) Active Adipex-P 37.5 mg oral capsule 37.5 mg = 1 cap(s), Oral, Daily aspirin 81 mg oral delayed release tablet 81 mg = 1 tab(s), Oral, MWF atorvastatin 20 mg oral tablet 20 mg = 1 tab(s), Oral, Daily black cohosh 540 mg oral capsule 540 mg = 1 cap(s), Oral, Daily Elderberry gummie 1 tab(s), Oral, Daily losartan 25 mg oral tablet 25 mg = 1 tab(s), Oral, Daily phentermine 37.5 mg oral tablet 37.5 mg = 1 tab(s), Oral, Daily Probiotic Formula 1 tab(s), Oral, Daily Vitafusion gummies 1 tab(s), Oral, Daily Vitamin B12 500 mcg oral tablet 1,000 mcg = 2 tab(s), Oral, Daily Vitamin C 2 tab(s), Oral, Daily zinc (as gluconate) 50 mg oral tablet 50 mg = 1 tab(s), Oral, Daily Problem list: All Problems GERD (gastroesophageal reflux disease) / SNOMED CT 000994081 / Confirmed Hypercholesteremia / SNOMED CT 83441021 / Confirmed Hyperlipidemia / SNOMED CT 98494511 / Confirmed Hypertension / SNOMED CT 9978546666 / Confirmed Tobacco user / SNOMED CT 910839969 / Probable Vitiligo / SNOMED CT 89314030 / Confirmed Resolved: Pancreatitis / ICD-9-CM 577.0 Canceled: None / SNOMED CT 496103112 Histories Family History: CA - Lung cancer Father Hypertension Mother Brother Cancer of cervix Mother Procedure history: Vein procedure ([id number]). Comments: 06/09/2024 10:32 EDT - Mayelin Ruby RN vein stripping bialteral legs Laparoscopic cholecystectomy (96198564). section ([id number]). Social History Electronic Cigarette/Vaping Assessment Electronic Cigarette Use: Never. Alcohol Assessment Use: Current. Liquor, 1-2 times per month Tobacco Assessment Current everyday tobacco user Tobacco Use:. Started age 34 Years. 4 or less cigarettes(less than 1/4 pack)/day in last 30 days Tobacco Use:. occasional smoker per day. Comment: 45 cigaretes/day Substance Abuse Assessment Substance use: Current. CBD Comment: Pt informed nurse on pre-op phone call that she has been doing CBD gummies at night-pt states she gets them from dispensary . Social & Psychosocial Habits Alcohol 06/09/2024 Alcohol Use: Current Type: Liquor Frequency: 1-2 times per month Substance Use 06/23/2024 Substance use: Current Type: CBD Comment: Pt informed nurse on pre-op phone call that she has been doing CBD gummies at night-pt states she gets them from dispensary - 06/23/2024 09:22 - Mayelin Ruby RN Tobacco 06/09/2024 Smoking tobacco use: 4 or less cigarettes(less Number used per day: occasional smoker 06/09/2024 Smoking tobacco use: Current everyday tobacco Started at age: 34 Years Comment: 45 cigaretes/day - 06/09/2024 10:28 - Mayelin Ruby RN Electronic Cigarette/Vaping 06/09/2024 Electronic Cigarette Use: Never . Physical Examination Vital Signs (last 24 hrs) Last Charted Temp Temporal 36.4 DegC (JUN 24 10:10) Heart Rate Peripheral 72 bpm (JUN 24 10:10) Resp Rate 16 br/min (JUN 24 10:10) SBP H 135 mmHg (JUN 24 10:15) DBP H 95 mmHg (JUN 24 10:15) General: Alert and oriented, No acute distress. Airway: Mallampati classification: I (soft palate, fauces, uvula, pillars visible). Temporomandibular joint mobility: Good. Mouth: Adequate opening, Teeth ( Dragoon ). Neck: Full range of motion. Respiratory: Lungs are clear to auscultation. Cardiovascular: Normal rate, Regular rhythm. Neurologic: Alert, Oriented. Review / Management Laboratory Results Plan [place] [employer] (ASA) physical status classification: Class III. Anesthetic Preoperative Plan Anesthesia: General. . Anesthetic plan, risks, benefits, and alternatives discussed with the patient and/or family. Risks discussed: nausea, vomiting, sore throat, serious complications. Patient verbalized understanding. Family/Guardian present. Informed consent was given. Consent was signed by the patient. [Electronically Signed on: 06/24/2024 11:27 EDT] Calixto Weiner (more content not included)... [facility] Consent Formson 06-24-2024 Consent Forms [id number]. 00OT[facility] Inpatient Patient Summaryon 06-24-[address] [facility] [address] [place], [place] [address] Patient Discharge Instructions Name: AMALIA ALLEN : 1975 Patient Address: [address] [place] [address] Primary Care Provider: Name: La Aquino CNP After you are discharged if you find you have any questions, please, call [phone] ext [phone] to speak to a nurse. Discharge Diagnosis: Acute pain of left knee Prescription Information: If you have been given a prescription for narcotics, seek immediate medical attention if you have any difficulty breathing or any sudden status changes such as confusion and sleepiness. If you or anyone you know is experiencing suicidal thoughts, mental health, alcohol and/or drug addiction problems; contact the [facility] 29/09 Crisis Hotline -Text 4HWAI to 489947. If you received any narcotics, sedation, or any other medication that causes drowsiness for the next 24 hours, unless otherwise directed: ? Do not drive a car. ? Do not operate machinery such as power tools, lawn mowers, drills, sewing machines, or stoves ? Avoid alcoholic beverages and drugs for allergies, nerves, or sleep ? Do not make important personal or business decisions or sign any legal documents [facility] would like to thank you for allowing us to assist you with your healthcare needs. The following includes patient education materials and information regarding your injury/illness. RISELUIS ANTONIONALLELY ESQUIVEL has been given the following list of follow-up instructions, prescriptions, and patient education materials: Follow-up Instructions With: Address: When: Stacy Landa [address] [place] [address], [address] [place] [address] Business (1) 07/07/2024 10:45 AM Medications During the course of your visit, your medication list was updated with the most current information. The details of those changes are reflected below: Medications to Continue That Have Not Changed Other Medications ascorbic acid (Vitamin C) 2 tab(s) Oral (given by mouth) every day. Gummies. aspirin (aspirin 81 mg oral delayed release tablet) 1 tab(s) Oral (given by mouth) Thursday, Thursday and Thursday. atorvastatin (atorvastatin 20 mg oral tablet) 1 tab(s) Oral (given by mouth) every day. bifidobacterium-lacto bacillus (Probiotic Formula) 1 tab(s) Oral (given by mouth) every day. Gummie. black cohosh (black cohosh 540 mg oral capsule) 1 cap(s) Oral (given by mouth) every day. cyanocobalamin (Vitamin B12 500 mcg oral tablet) 2 tab(s) Oral (given by mouth) every day. losartan (losartan 25 mg oral tablet) 1 tab(s) Oral (given by mouth) every day. phentermine (Adipex-P 37.5 mg oral capsule) 1 cap(s) Oral (given by mouth) every day. phentermine (phentermine 37.5 mg oral tablet) 1 tab(s) Oral (given by mouth) every day. Template Non-Formulary (Elderberry gummie) 1 tab(s) Oral (given by mouth) every day. Template Non-Formulary (Vitafusion gummies) 1 tab(s) Oral (given by mouth) every day. zinc gluconate (zinc (as gluconate) 50 mg oral tablet) 1 tab(s) Oral (given by mouth) every day. It is important to always keep an active list of medications available so that you can share with other providers and manage your medications appropriately. As an additional courtesy, we are also providing you with your final active medications list that you can keep with you. ascorbic acid (Vitamin C) 2 tab(s) Oral (given by mouth) every day. Gummies. aspirin (aspirin 81 mg oral delayed release tablet) 1 tab(s) Oral (given by mouth) Thursday, Thursday and Thursday. atorvastatin (atorvastatin 20 mg oral tablet) 1 tab(s) Oral (given by mouth) every day. bifidobacterium-lacto bacillus (Probiotic Formula) 1 tab(s) Oral (given by mouth) every day. Gummie. black cohosh (black cohosh 540 mg oral capsule) 1 cap(s) Oral (given by mouth) every day. cyanocobalamin (Vitamin B12 500 mcg oral tablet) 2 tab(s) Oral (given by mouth) every day. losartan (losartan 25 mg oral tablet) 1 tab(s) Oral (given by mouth) every day. phentermine (Adipex-P 37.5 mg oral capsule) 1 cap(s) Oral (given by mouth) every day. phentermine (phentermine 37.5 mg oral tablet) 1 tab(s) Oral (given by mouth) every day. Template Non-Formulary (Elderberry gummie) 1 tab(s) Oral (given by mouth) every day. Template Non-Formulary (Vitafusion gummies) 1 tab(s) Oral (given by mouth) every day. zinc gluconate (zinc (as gluconate) 50 mg oral tablet) 1 tab(s) Oral (given by mouth) every day. Take only the medications listed above. Contact your doctor prior to taking any medications not on this list. Diet & Activity Patient Activity Level: As Tolerated Patient Diet: Regular Patient Activity Restrictions: Discontinue Alcohol Use, No driving, No heavy lifting, Stop Smoking Comment: Patient education materials, if any, will display below Arthroscopic Surgery Discharge Instructions 1.) Keep ice on yo (more content not included)... Normal [facility] MAGR Intraoperative Recordon 06-24-2024 MAGR Intraoperative Record MAGR Intra-Op Record Summary Primary Physician: ANJELICA ROTH DO Finalized Date/Time: 06/24/24 13:08:32 Pt. Name: AMALIA ALLEN /Sex: 1975 FEMALE Med Rec #: [id number] Physician: ANJELICA ROTH DO Financial #: [id number] Pt. Type: D Room/Bed: / Admit/Disch: 06/24/24 09:50:35 - Institution: Case Times MAGR Entry 1 Patient In Room Time 06/24/24 12:15:00 Out Room Time 06/24/24 13:03:00 Anesthesia Start Time 06/24/24 12:15:00 Stop Time 06/24/24 12:59:00 Surgery Start Time 06/24/24 12:37:00 Stop Time 06/24/24 12:56:00 Last Modified By: Jen Hobson RN 06/24/24 13:07:31 Case Attendance MAGR Entry 1 Entry 2 Entry 3 Case Attendee ANJELICA ROTH David DO Gump RN, Jen Role Performed Surgeon - Primary Anesthesiologist of Deck Officer Record Time In 06/24/24 12:24:00 06/24/24 12:15:00 06/24/24 12:15:00 Time Out 06/24/24 12:50:00 06/24/24 13:05:00 06/24/24 13:05:00 Procedure Arthroscopy Knee(Left) Arthroscopy Knee(Left) Arthroscopy Knee(Left) Last Modified By: Joce QUEVEDO, Jen Hobson RN, JenJen Garcia RN 06/24/24 13:07:20 06/24/24 13:07:20 06/24/24 13:07:20 Entry 4 Entry 5 Entry 6 Case Attendee Tenisha Patel CST, Brittany E CSFA McMurray, Lauren M CST CSFA VAT OPERATOR CSFA Role Performed Department Head Department Head Scrub Personnel Time In 06/24/24 12:15:00 06/24/24 12:15:00 06/24/24 12:15:00 Time Out 06/24/24 13:05:00 06/24/24 13:05:00 06/24/24 13:05:00 Procedure Arthroscopy Knee(Left) Arthroscopy Knee(Left) Arthroscopy Knee(Left) Last Modified By: Joce QUEVEDO, Jen Hobson RN, Jen France RN 06/24/24 13:07:20 06/24/24 13:07:20 06/24/24 13:07:20 General Comments: [facility] Surgical Procedures MAGR Pre-Care Text: A.20 Verifies operative procedure, surgical site, and laterality Im.150 Develops individualized plan of care Entry 1 Procedure Arthroscopy Knee Primary Procedure Yes Primary Surgeon ANJELICA ROTH DO Modifiers Left Surgeon Comment LEFT KNEE ARTHROSCOPY - Start 06/24/24 12:37:00 MEDIAL AND LATERAL MENISCUS TEAR Stop 06/24/24 12:56:00 Anesthesia Type General Surgical Service Orthopedics Wound Class Clean Technique Details Closure Technique Primary Entire procedure No was performed via laparoscope or robotic assistance Last Modified By: Jen Hobson RN 06/24/24 13:07:22 Post-Care Text: O.730 The patient's care is consistent with the individualized perioperative plan of care General Case Data MAGR Pre-Care Text: A.350.1 Classifies surgical wound Entry 1 Case Information OR MAGR OR 01 Case Level Level 4 Wound Class Clean Specialty Orthopedics ASA Class 3 Diagnosis Preop Diagnosis LEFT MEDIAL AND LATERAL Postop Same As Preop No MENISCUS TEAR Postop Diagnosis LEFT MEDIAL AND LATERAL MENISCUS TEAR-MEDIAL FEMORAL CONDYLE CHONDROPLASTY/EXCISIO N OF PLICA Blunt or No Is the procedure No penetrating injury considered occured prior to Emergent/Urgent? the start of the procedure: Last Modified By: Jen Hobson RN 06/24/24 12:48:34 Post-Care Text: O.760 Patient receives consistent and comparable care regardless of the setting Time Out MAGR Entry 1 Procedure(s) Arthroscopy Knee(Left) Time Out Checklist Verifications Team Introductions Yes Confirmed Identity, Yes Completed Procedure, Incision Site, and Consent(s) Presence of Yes Site Verification, Yes Necessary Site Marking, Site Procedural Marking Equipment, Devices, Alternative, and/or and Implants Site Marking Verified Exception in Accordance with Facility Policy Anesthesia Review Antibiotic Received n/a All Anesthesia Yes Within an Concerns Addressed Appropriate Time Interval Prior to Surgical Incision Surgeon Review Anticipated Blood Yes Expected Case Yes Loss Risk Addressed Duration Addressed Critical and Yes Non-Routine Steps to be Performed Addressed Nurse Review Equipment Yes Fire Risk Yes Checks/Concerns Assessment Addressed Completed and Interventions Performed Diagnostic and Yes Sterilization n/a Radiological Test Concerns Addressed Results Displayed are Appropriate and Labeled Other Concerns n/a Addressed Time Out William Weiner DO, Gump Time Out Time 06/24/24 12:35:00 Participants RN, Jorge Li Lauren M VAT OPERATOR CSFA, ANJELICA ROTH DO, Carmen Love [facility] VAT OPERATOR Last Modified By: Jen Hobson RN 06/24/24 12:40:19 General Comments: [facility] Patient Positioning MAGR Pre-Care Text: A.280 Identifies baseline musculoskeletal status Im.40 Positions the patient Im.80 Applies safety devices Entry 1 Procedure Arthroscopy Knee(Left) Body Position Supine Left Arm Position Extended on padded arm Right Arm Position Extended on padded arm board board Left Leg Position Dangling Right Leg Position Dangling Press Points Checked Yes Outcome Met (O.80) Yes Last Modifie (more content not included)... Normal [facility] PACU Recordon 5 [facility] Summary Primary Physician: ANJELICA ROTH DO Finalized Date/Time: 06/24/24 13:43:22 Pt. Name: AMALIA ALLEN/Sex: 1975 FEMALE Med Rec #: [id number] Physician: ANJELICA ROTH DO Financial #: [id number] Pt. Type: D Room/Bed: / Admit/Disch: 06/24/24 09:50:35 - Institution: PACU Case Times MAGR Entry 1 In PACU I 06/24/24 13:05:00 Discharge from PACU 06/24/24 13:42:00 I Last Modified By: Mayelin Ruby RN 06/24/24 13:43:20 Finalized By: Mayelin Ruby RN Document Signatures Signed By: Mayelin Ruby RN 06/24/24 13:43 [facility] MAGR Postoperative Recordon 06-24-2024 MAGR Postoperative Record MAGR Phase II Record Summary Primary Physician: ANJELICA ROTH DO Finalized Date/Time: 06/24/24 15:17:50 Pt. Name: AMALIA ALLEN/Sex: 1975 FEMALE Med Rec #: [id number] Physician: ANJELICA ROTH DO Financial #: [id number] Pt. Type: D Room/Bed: / Admit/Disch: 06/24/24 09:50:35 - Institution: Phase II Case Times MAGR Pre-Care Text: Patient is free from s/s of injury. Patient remains free from compromised physical state related to surgery or anesthesia. Patient comfort maintained. Patient/family verbalize understanding of discharge instructions. Entry 1 In PACU II 06/24/24 13:45:00 Discharge from PACU 06/24/24 15:08:00 II Last Modified By: Mony Mishra RN 06/24/24 15:17:46 Post-Care Text: The patient remains free from s/s of injury. Patient's vital signs stable, circulation maintained, return to preop mental and physical status, opsite/dressing intact, minimal or absent nausea and vomiting, tolerates po intake. Patient verbalizes adequate pain control. Patient/family express understanding of discharge instructions. Finalized By: Mony Mishra RN Document Signatures Signed By: Mony Mishra RN 06/24/24 15:17 [facility] MAGR Preoperative Recordon 0 06-24-2024 MAGR Preoperative Record MAGR Pre-Op Record Summary Primary Physician: ANJELICA ROTH DO Finalized Date/Time: 06/24/24 13:16:19 Pt. Name: AMALIA ALLEN/Sex: 1975 FEMALE Med Rec #: [id number] Physician: ANJELICA ROTH DO Financial #: [id number] Pt. Type: D Room/Bed: / Admit/Disch: 06/24/24 09:50:35 - Institution: Pre-Op Case Times MAGR Pre-Care Text: Patient will be optimally prepared for surgery. Patient is free from s/s of injury. Provide information to patient/family related to plan of care. Verify patient allergies. Confirm identity and verify consent before the operative or invasive procedure. Entry 1 Patient Arrival Time 06/24/24 09:55:00 Preop Departure 06/24/24 12:13:00 Last Modified By: Mayelin Ruby RN 06/24/24 13:16:18 Post-Care Text: Patient is prepared mentally and physically and is ready for surgery. The patient remains free from s/s of injury. Patient/family express understanding of plan of care and participate in decisions affecting his or her perioperrative plan of care. Allergies documented appropriately. Patient identifiers and consent correct. General Comments: Pt to PSW. Pt denies any cold/flu symptoms,SOB, sleep apnea, CP, or pacemaker/defibrillat or. Pt informed of restrictions for 24 hours due ot anesthesia- pt with understanding. Finalized By: Mayelin Ruby RN Document Signatures Signed By: Mayelin Ruby RN 06/24/24 13:[address] [facility] Patient Handouton 06-24-2024 Patient Handout Arthroscopic Surgery Discharge Instructions 1.) Keep ice on your knee after surgery. You may use the ice bag provided to you by the hospital or one from home. The ice should be applied at least 3 times a day for 20 minute intervals. 2.) Keep your knee elevated above the level of your hear. You may prop your leg up on pillows as long as the knee is higher than your heart. 3.) Move your knee. Please, do not be afraid to move the knee joint. It will be stiff and sore in the beginning, but this will slowly improve with healing time 4.) Wiggle your toes and exercise your ankle. These muscle pumps with help to take the swelling out of your knee and enhance circulation to the leg. Wiggle your toes and exercise your ankle for ten minutes every hour that you are awake. 5.) You may remove all bandages from your knee after 3 days. There may be some blood and drainage on the bandages, this is to be expected. You may clean the puncture sites with hydrogen peroxide and a cotton swab three times a day. Keep band aids over the puncture sites until scabbed over. 6.) If don't already have them, you will be issued a walker or crutches to aid in ambulation. These will allow you to move about without overloading your knee. The doctor would like you to: Use crutches and add weight to your knee as tolerated. Let the level of pain be your guide 7.) Do not immerse your knee under water until the puncture sites have completely healed. You may shower and pat the knee dry after you remove the bandages starting in 3 days. 8.) Keep your follow up appoinment. 9.) If you notice foul odor, excessive drainage, calf pain, shortness of breath or increased swelling or pain call the office or proceed to the nearest Hospital Emergency Room. 10.) Be kind to yourself and do your exercises. Get planety of rest. Healing takes time. 11.) If you have been supplied with a brace, keep it in place at all times. 12.) For the next 24 hours do not drink any alcoholic beverages, drive a motore vehicle, operate machinery or powertools, make important decisions or sign important papers. 13.) You may feel dizzy, lightheaded or sleepy following surgery. Make sure you have someone with you for the rest of today. Normal [facility] Test Urine 1on U Preg Negative Normal [facility] Comment on above: Performed By: #### 3 [id number] ####[facility] (DEFAULT)[address] [place] [address] U Preg Internal Control Pass [facility] Comment on above: Performed By: #### 3 [id number] ####[facility] (DEFAULT)[address] [place] [id number] [place] Mammo Screening 3D Bilate ral.on 06-23-2024 [place] Mammo Screening 3D Bilateral. EXAM: MA Mammo Screening 3D Bilateral. HISTORY: SCREENING MAMMOGRAM. COMPARISON: Screening mammogram study dated 06/20/2023. TECHNIQUE: Screening digital mammogram study of both breasts was performed with 2-D and 3-D tomosynthesis imaging. FINDINGS: There are scattered areas of fibroglandular density. There is no evidence of interval dominant spiculated mass, grouped microcalcifications, or skin thickening which would be suggestive of malignancy. Mild scattered benign-appearing calcifications noted bilaterally. Likely intramammary lymph node on the left superolaterally, similar to the prior study. Axillary lymph nodes are noted bilaterally which appear grossly unremarkable. Calcification of one of the left axillary lymph nodes similar to the prior exam and not felt to be acutely significant. [employer] was utilized for this study. IMPRESSION: No specific evidence of malignancy seen in either breast. BIRADS: 2 - Benign, no evidence of malignancy. Normal interval followup is recommended in 12 months. OVERALL ASSESSMENT- BENIGN A letter of notification will be sent to the patient regarding the results. Assessment / Recommendation: 2-1 Normal interval follow-up Breast density: Scattered Fibroglandular Density Recall interval: 012 months [place] [id number] Final Dictated by: Lars Thapa MD Dictated DT/TM: 06/28/24 9:25 Signed (Electronic Signature): Lars Thapa MD 06/28/24 4:03 pm Technologist: MONO Assessment: 2-Benign finding Recommendation: Normal interval follow-up Normal [facility] Progress Note - Nurseon 06-07 Progress Note - Nurse Pre-op phone call for 06-24-2024 surgery made. Pt denies sickness. Pt given arrival time of 1000 tomorrow. 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 [Electronically Signed on: 06/23/2024 09:27 EDT] Mayelin Ruby RN [Verified on: 06/23/2024 09:27 EDT] Mayelin Ruby RN During phone call patient stated she has being using CBD gummies that she gets from a dispensary to help her sleep- Social/substance updated. [Electronically Signed on: 06/23/2024 09:28 EDT] Mayelin Ruby RN [facility] Coding Summaryon 06-15-2024 Coding Summary HTMLBase 64 VfgdnczhYIn5nVq+PGhlY WQ+XN6MQEZpL90ykSEfhB 6eP2ZIELbEVuweXUPODEy WCmKrhfGuPZ5faDHnHQLg IC8+QY4sJKAeZbdffUTzg 5R0jMM0P15kvr6xWUnkiC U6KNLzVkOmiwbrf6pcpOn 6IDcuNmluOyBt OCSyzO06XUC4dK13Xh06s WFrwJVix1rmaKf1DeNsFQ TmHIO9fIedNOhch2RaXLA tJ21abBVvg0S8 VVWkzHzmpBEnFyBgwGI9i N3qALdlsyefh7sajlubXl u1ki25jPGzy6W6wDH3K1K yxoE5QACmjIOw MiozdZYUcF8zhubhr0sjs rxaJuZtMAZkZYx1SGl3KZ UiaCnvQjGlKV85FKP7DRE nqnErO7LaMIVz dCbmRkB9i6F7Vn0MZ1LGJ xapD3GCUKNCEEqyvIK+PC 54vu46P2LsVjjzAsn4PNP xLCG0hFZ3hO7j PAUoAYzfz0I1aDP8J0Pky nIvti2jv8qdHRViOSswD4 9eoVFdl1O2HWPuaPJ7NLM utSbiHkRdoF20 Oyc+FFJeoPvtc4PgXbebk 3fkl2tafWk1QlmhMWTqud JhwLgyQJK9y1RtEu7bJXD vfVT4tWU1hH1l GrFjIdR8JPwcD550QpUrw VEeZtcnK23cB9McoTF+PH PbJey7HKPaoMgrSO7mM3E hZGRpbmctbGVm cLazSX5wGDIbmitbZBZuw I7vUOIkF7z8YcLcDhM9VU tnY5HvVFLnroxfFz92mK1 fJvQwVzG6OQbu Y4RfwkA6SYTjsRAcDFraJ ST3L16qx9A3UMDzZZUxHW V5hRX9fZ2kiMzdziivmLP mdDsgdmVydGlj GXckVNkeM777OSMciYngH kNvZGluZyBEYXRlOiAgMD QvMDkvMjAyNTwvdGQ+PHR dARM9iGwdTPWe iASmPZntJr5anFliqSgpK U4vRBKifzofKBUyjM6oMU DbnOHotDptVK8wADGoafk ug618KlBoPPR4 NWDrvAQhV4NddJ1lFoLhJ TJeOMDaE9ShoQPbKJetW3 16KGzvBaY4HHWkxfCiM7R sLWFsaWduOiB0 x8Q2Ch5Je6JmmznnG0Fun RWeKoNtIfshFBj8Y2MrLd wvdHI+IX78DHKvYN55ZBg 6XTD6zEixZZob VINmD7DfsC2bQwUdZFXiC GRkOyc+PHRhYmxlIHdpZH RoPScxMDAlJyBzdHlsZT0 cOe6jTVKoYFEl iOaifOPxNgNdy5wbSNBzJ SqhHI8ajEmaM0XzwSF3LW Luw6j5Ht01B01lD2YodAU +EXUxfYZ8wRU9 jA9jSaRtTcW0GZlsI462V oDfrQOcAljcv5pvr9ekuX a0VyN8RAHnwwGfvCdvUFV 6f0YjQg56A91k IHdpZHRoPSIxNSUiIHZhb Xorey0rvJ6hFd3+PGNvbC C6tBJ8jO5uErOcSbT9BEc pC740OrQaaZZd Rgpif2plj5qojPd7BgMkW TVjouZasCqcFSN1g6YhZo 25I8EbzDgey0QnPkb8iu1 2oERlk2Y6hOE5 O5DeFSFubxwhwRPscNlkI G7hCYXjhpmxTBLwlB2eAT LnB8s3JiHbAmI3LWtjE6J anaY4NVAhrWXu ATImuSVCpC7mlgrpj2xsn mmnJyJyAVNaSFb0UMz6RZ QztAlcTlBtSWZ9MbE3ROD 0aRXsnI8cmVsd fgmdaH5gUho+XFI4hEGhd SSWXH5rOkvwnVR+PHRkIH D3xPltBVsmFVPgrN9aOPN bE8z5ObVkJxZ0 UPdaZ7SnpqA7WGTneCPnU JFzvYDCdV6pucvsd6hcci eqNxTlLBQkGEs2TEl5TEZ saWduOiBsZWZ0 OvF2WUY1yMAzlS9waHmzk zpfbX6wQfe+QmlydGggRG O0SGa4B6XuEgs7NEPjdYv bZO5knIHtHGcu Xu8yjCvkbZzmET9jUYXtv tqmn485LlDup2vpFPXwuI EdXDogOSO9S17bo9A5YJM wEMXjHZU2lGM8 eB0jaEdovhapeFXxlFnmi iPiqWouIUygZPqxT387NB XidOlnTbDrLKd4G9XhHzw 4DHXnxLtfNW5r kDYtMHgfBx7yuTsfbNelZ N7bQMVknjgrd779GmGct8 ntFCDtgNWuBBpfSER3M84 jf0M7YGMvGRGr RLS2mKV3gF6ipVvgovfun GVmdDsgdmVydGljYWwtYW qgE212FXOyyNdqUzUqtPp 4K7ZsDqn0CQHc jHlhNP4obMLkPKqlXf6nf UbruOhtKK6tIHBggunyb4 43JtUot4hjYVHuwRXaLJy vZPU1T87td3M8 DPNeESNoXAM8cMY0oU7st GlnbjogbGVmdDsgdmVydG zaLUxxPPaxH667FHImhRw nPlBhdGllbnQg CDvvGSb1N5IdFbskgPL+P G22FGGeWI19rQNwoFQft3 jceEq9PxMiXCAnJUJ0tOs fZPidp5CnIGVi F43fiWKoi7P8SQIhsCgxe ETjVyPcmEP5lE8aMAdaiu iqk7nwvftpCyeiw8vvle7 9bA01U47pKElb ZHRoPSIzMCUiIHZhbGlnb a3bqS4vHh0+MTBqdCN9bK P0gO4wCZCtOrC4BYqkW80 9InRvcCIvPjxj p2kgr2gvmXl2MaJ3MPSvu rPidJxoQHD8s0EyVv92D9 9sIHdpZHRoPSIyMCUiIHZ gvJztww4heB2n Ii8+CSGiyRO8nDW9qA1lK wMoAsL6YSthF096BpDooU FrFqnwE71yV0WznCA+PHR nAro0XOPioKtv WR0teMGsHVkmHc9uACY5J pGmOfJeQHsiI3MpKUZnpi keyqttnPT1AYUtWQOjtK2 3Sf7tjXkwGYWn fPYMkV9xexobc1ycghvmY tWsCWCeDEj5NNl6WLMdmM prNvTdEGK9FxR7SVZ8bFF vfO1gbZiwpiwj dJ7uC5NsELTmhipfWs78p U9zTyEgVxD7YTiqExs+Uk wZZPbbHLTOT0xbXImCRjp vdGQ+PHRkIHN0 qQfuOBizWFCeoL7dPPVvH 3r6EhIfBcE0DErtB8LcKP JzmgrqKh40nM3xBfPgCuA 3FUjvK0FleiD4 KBKbwLKrGCoyZLW7K48ui 6Y8YKNnUBRlBUX4aGT7jA 1hbGlnbjogbGVmdDsgdmV ydGljYWwtYWxp S170AUKdrWnfJfAcOdC4I vR0TqN4U9QbFge6UPEvkU ciPT2zuSGpEYjwUd9qeUt ocNfyUV8oITYk lwyvMKDgkS6qTFRpgZDjt WpwVD2lEOUqfsxzz371Ne YbMDY6TTOjxVQpL1BmeZ8 yOiAjMDAwMDAw J1GngOHbYQltS317KRyhH wE6HJPxpzJcJ8FdGQIybU tzZsH5h6R4Yj16CRSDMIM yczwvdGQ+PHRk WVG3oQsdMSunLRZcbW1fH TViR3z3AoJgHyE7ZZkpN9 RgFCNhzvqcJi86pV4xUrL fUkD2LZwoZ7Ay jqB1LQVoyYOeORhlVET3Z 82nn4V0SVDoTMMhDGG6gW X4aV2neVjlmvkasJNhnIv gdmVydGljYWwt WMzqT998MCQhnOgjUtHWX UFMRTwvdGQ+DHNdWXR8nP vnYMvnSJChpS1vJFUtO0c 8KvIjMlG2LHli L9MgXASixfqtWv79hD9hV bByQsA6OKqpW9VnnmM1VY VjwZWuQByyGXV8L71qz2R 1RWEaQCDzJOX6 eQW0sT7voTbveiohzZKug DsgdmVydGljYWwtYWxpZ2 48EPKrnNvgHv3OBV73LC3 1A3BhFpzcuVBh bGU+PHRhYmxlIHdpZHRoP OfcTTXoUgVuiZnsTK4eZa 9yZGVyLWNvbGxhcHNlOiB dl1woTVQvFBtm GX3hhUqwI6GahJR0TAZbr 5t8Ys88X40aP8HhjUD+PG EbfFZ1dXK4vJ8vRnBkItG 8DQwyX714UhQv eDEdArlys6sro9qujEd4R nCtZIVhpxHyoMrvSIN5d4 KcGn30F63dOKaiXOUeIVS yMCUiIHZhbGln iz2evI3pLy0+FTQcxLD9r TC3eQ2hGcLxHhJ5QAaxT5 93KuWtgCFdPdteL88yV9B vdXA+PHRyPjx0 TPUgqRnwQS3wySTvHXogV v8sZQA5EfEwCqTsOCufH6 LiVTOmkunsrelpkVM1OYG cXYKcrG88Ea5k vOpzEe5jUNXoRUX2MMPmi LRcD4ZfzU9uVaZpUASwCI SxO1YmwBJeNUsuB518YNs zGkS7QSSkdwVk T3YoDVSrhNhcXaG5v4M0O d6MsTqhbQBtGY3bWuJqVS i8Q8QtVoe3FUVkyJzrSB8 acDBoRAalCh9y aPmcaBzfMK5iYFSrqquyh 655BpItj2thUGTviWEmLW dvEDH9X44vy6L3GOFpAYF yMHT8iFG8fL7y bGlnbjogbGVmdDsgdmVyd WdlKLikRNhmX026NZJxkH ldYuNRTed7R2VyYeg9CZD jvHvrFN9saAGy CYwaLy6mzTlmiEihWH4xQ XQcooddy479LxFll5zrAO CwjTEnWGpwPFB8F01ft4O 7QWCdJCGmDMO0 vSW2zY5xdFwffdlktLBoq DsgdmVydGljYWwtYWxpZ2 24ITGtpUmrCk2PAmz9D9R zLcx3OQZdySud VY0djAZfNUizPq0msSyzx EzdFE5tAATknngje950Dn Xnb3seDTWzoNBqEWljNTR 7B96cd4F7RAVl XUZzEBX2nZG3oU8cbXloy jogbGVmdDsgdmVydGljYW kfPNcbA392TBTykIheSvW heWVyOjwvdGQ+ CF33hd63L2NlByzjGst5J ARmXAW2dNR0lF3pAIUhWN cti4M9sFC3D2FupiUssb6 eh5xlWTQcBKns Y29 (more content not included)... [facility] Progress Note - Nurseon Progress Note - Nurse Dr Johnson review pt chart and no new orders were received. [Electronically Signed on: 06/10/2024 10:34 EDT] Halie Crews RN [Verified on: 06/10/2024 10:34 EDT] Halie Crews RN [facility] Standardon 06-09-2024 eGFR AA >[address] [facility] Comment on above: Performed By: #### 1 [id number] ####[facility] (DEFAULT)[address] [place] [address] eGFR Non AA >[address] [facility] Comment on above: Performed By: #### 1 [id number] ####[facility] (DEFAULT)[address] [place] [address]8477 Anion gap [Moles/Vol] 12.8 mmol/L Normal 5.0-19.0 [facility] Comment on above: Performed By: #### 1 [id number] ####[facility] (DEFAULT)[address] [place] [address]687 Calcium [Mass/Vol] 9.0 mg/dL Normal 8.9-10.3 [facility] Comment on above: Performed By: #### 1 [id number] ####[facility] (DEFAULT)[address] [place] [address] 72336 Chloride [Moles/Vol] 103 mmol/L Normal 101-111 [facility] Comment on above: Performed By: #### 1 [id number] ####[facility] (DEFAULT)[address] [place] [address] 92609 CO2 [Moles/Vol] 23 mmol/L Normal 21-32 [facility] Comment on above: Performed By: #### 1 [id number] ####[facility] (DEFAULT)[address] [place] [address]229 Creatinine [Mass/Vol] 0.65 mg/dL Normal 0.60-1.30 [facility] Comment on above: Performed By: #### 1 [id number] ####[facility] (DEFAULT)[address] [place] [address]31 Glucose [Mass/Vol] 85.0 mg/dL Normal 74.0-118.0 [facility] Comment on above: Performed By: #### 1 [id number] ####[facility] (DEFAULT)[address] [place] [address]24 Osmolality 269 mOsm/L Invalid Interpretation Code [facility] Comment on above: Performed By: #### 1 [id number] ####[facility] (DEFAULT)[address] [place] [address] Potassium [Moles/Vol] 3.8 mmol/L Normal 3.6-5.1 [facility] Comment on above: Performed By: #### 1 [id number] ####[facility] (DEFAULT)[address] [place] [address] Sodium [Moles/Vol] 135.0 mmol/L Low 136.0-144.0 [facility] Comment on above: Performed By: #### 1 [id number] ####[facility] (DEFAULT)[address] [place] [address] Urea nitrogen [Mass/Vol] 11 mg/dL Normal 8- [facility] Comment on above: Performed By: #### 1 [id number] ####[facility] (DEFAULT)[address] [place] [address] Urea nitrogen/Creatinine [Mass ratio] 16.9 mg/mg High 4.6-16.2 [facility] Comment on above: Performed By: #### 1 [id number] ####[facility] (DEFAULT)[address] [place] [address] Lab - Other Lab Resultson Lab - Other Lab Results [id number]# [address] Outside Recordson 06-09-2024 Outside Records [id number]# [address] Provider Orderson 05-24-2024 Provider Orders [id number] MR KNEE LEFT WO IV CONTRASTo n 03-18-2024 MR KNEE LEFT WO IV CONTRAST EXAMINATION/TECHNIQUE : MR KNEE LEFT WO IV CONTRAST HISTORY: Left knee pain. COMPARISON: Radiographs 02/22/2024. RESULT: MENISCI: Medial Meniscus: Appears intact with areas of increased intrameniscal signal Lateral Meniscus: Appears intact with small amount of increased intrameniscal signal LIGAMENTS: ACL, PCL, MCL, and LCL complex intact. CARTILAGE: Small area of full-thickness fissuring involving the trochlea. Otherwise cartilage grossly unremarkable. TENDONS: Mild distal quadriceps and patellar tendinosis, without tear. Popliteus intact. BONES AND MARROW: No evidence of fracture or bone marrow replacing process. MUSCLES: Muscle bulk and signal intensity are normal. JOINT FLUID AND SYNOVIUM: No joint effusion. No synovitis. No Cruz's cyst. OTHER: Subcutaneous edema. Varicose vessels. IMPRESSION: Intact appearing menisci and ligaments. ELECTRONICALLY SIGNED BY: Beto Garcia MD Normal Not Available XR Knee - left 1 or 2 Viewso n 02-22-2024 Imaging Result: AP Weight bearing eft knee: No effusion Joint space preservation noted No acute fracture or dislocation Impression: NO acute bony process left knee [facility] Radiology Study observation (narrative) [facility] Basophils Auto (Bld) [#/Vol] on 01-16-2024 Basophils (Bld) [#/Vol] Automated basoph il count 0.0-0.1 [facility] Basophils/100 WBC Auto (Bld) on 01-16-2024 Basophils/100 WBC (Bld) Automated basophil % 0. 2-2.0 [facility] Cholesterol in LDL Calc [Mas s/Vol]on 01-16-2024 Cholesterol in LDL [Mass/Vol] Cholesterol in LDL [Mass/volume] in Serum or Plasma by calculation [facility] Comment on above: <100 mg/dl HOTIFGX27 0-129 mg/dl NEAR OR ABOVE [id number] mg/dl BORDERLINE GHVX752-320 mg/dl HIGH>190 mg/dl VERY HIGH Cholesterol in VLDL Calc [Ma ss/Vol]on 01-16-2024 Cholesterol in VLDL [Mass/Vol] Cholesterol in VLDL [Mass/volume] in Serum or Plasma by calculation [facility] Eosinophils/100 WBC Auto (Bl d)on 01-16-2024 Eosinophils/100 WBC (Bld) Automated eosinophil % 0.9-7.0 [facility] Erythrocyte distribution wid th Auto (RBC) [Ratio]on 01-16-2024 Erythrocyte distribution width (RBC) [Ratio] Erythrocyte distribution width [Ratio] by Automated count 11.0-15.0 [facility] Estimated glomerular filtrat ion rate (GFR) non- Americanon 01-16-2024 GFR/1.73 sq M.predicted among non-blacks MDRD (S/P/Bld) [Vol rate/Area] Estimated glomerular filtration rate (GFR) non- >=60 mL/min/1.73 m 2 [facility] Globulin Calc (S) [Mass/Vol] on 01-16-2024 Globulin (S) [Mass/Vol] Serum globulin measurement by calculation (mass/volume) [facility] Hematocrit Auto (Bld) [Volum e fraction]on 01-16-2024 Hematocrit (Bld) [Volume fraction] Hematocrit [Volume Fraction] of Blood by Automated count 36.0-48.0 [facility] Hemoglobin [Mass/volume] in Bloodon 01-16-2024 Hemoglobin (Bld) [Mass/Vol] Hemoglobin [Mass/volume] in Blood 12.0-16.0 [facility] Laboratory - Chemistry and C hemistry - challengeon 01-16-2024 Albumin [Mass/Vol] 3.7 g/dL 3.4-5.0 [facility] ALP [Catalytic activity/Vol] 71 U/L 46-116 [facility] ALT [Catalytic activity/Vol] 35 U/L 14-59 [facility] AST [Catalytic activity/Vol] 14 U/L Low 15-37 [facility] Bilirubin [Mass/Vol] 0.6 mg/dL 0.2-1.0 [facility] Calcium [Mass/Vol] 9.0 mg/dL 8.5-10.1 [facility] Chloride [Moles/Vol] 107 mmol/L 98-107 [facility] Cholesterol [Mass/Vol] 191 mg/dL <=200 [facility] Cholesterol in HDL [Mass/Vol] 58 mg/dL 40-60 [facility] Comment on above: > or =60 mg/dl - LOW CARDIOVASCULAR RISK<40 mg/dl - HIGH CARDIOVASCULAR RISK CO2 [Moles/Vol] 28.0 mmol/L 21.0-32.0 [facility] Creatinine [Mass/Vol] 0.72 mg/dL 0.55-1.02 [facility] GFR/1.73 sq M.predicted MDRD (S/P/Bld) [Vol rate/Area] mL/min/{1.73_m2} >=60 mL/min/1.73 m 2 [facility] Glucose [Mass/Vol] 93 mg/dL 74-106 [facility] Potassium [Moles/Vol] 4.3 mmol/L 3.5-5.1 [facility] Protein [Mass/Vol] 6.8 g/dL 6.4-8.2 [facility] Sodium [Moles/Vol] 146 mmol/L High 136-145 [facility] Triglyceride [Mass/Vol] 118 mg/dL <=150 [facility] Urea nitrogen [Mass/Vol] 12.0 mg/dL 7.0-18.0 [facility] Urea nitrogen/Creatinine [Mass ratio] 16.7 mg/mg [facility] Laboratory - Hematology and Cell countson 01-16-2024 Immature granulocytes/100 WBC (Bld) 0.2 % 0.0-0.5 [facility] Leukocytes [#/volume] correc nubia for nucleated erythrocytes in Blood by Automated counon 01-16-2024 WBC corrected for nucl RBC Auto (Bld) [#/Vol] Leukocytes [#/volume] corrected for nucleated erythrocytes in Blood by Automated coun 4.0-11.0 [facility] Lymphocytes Auto (Bld) [#/Vo l]on 01-16-2024 Lymphocytes (Bld) [#/Vol] Lymphocytes [#/volume] in Blood by Automated count 1.2-3.8 [facility] Lymphocytes/100 WBC Auto (Bl d)on 01-16-2024 Lymphocytes/100 WBC (Bld) Lymphocytes/100 leukocytes in Blood by Automated count 20.5-60.0 [facility] MCH Auto (RBC) [Entitic mass ]on 01-16-2024 MCH (RBC) [Entitic mass] MCH [Entitic mass] by Automated count 26.7-34.0 [facility] MCHC Auto (RBC) [Mass/Vol]on 01-16-2024 MCHC (RBC) [Mass/Vol] MCHC [Mass/volume] by Automated count 29.9-35.2 [facility] MCV Auto (RBC) [Entitic vol] on 01-16-2024 MCV (RBC) [Entitic vol] MCV [Entitic vol ume] by Automated count 81.0-99.0 [facility] Monocytes Auto (Bld) [#/Vol] on 01-16-2024 Monocytes (Bld) [#/Vol] Automated blood monocyte count 0.3-0.8 [facility] Monocytes/100 WBC Auto (Bld) on 01-16-2024 Monocytes/100 WBC (Bld) Automated monocyte % 1. 7-12.0 [facility] Neutrophils Auto (Bld) [#/Vo l]on 01-16-2024 Neutrophils (Bld) [#/Vol] Neutrophils [#/volume] in Blood by Automated count 1.4-6.5 [facility] Neutrophils/100 WBC Auto (Bl d)on 01-16-2024 Neutrophils/100 WBC (Bld) Automated neutrophil % 43.0-75.0 [facility] No Panel Informationon 01-15 Eosinophils # (Auto) 0.3 10 3/uL 0.0-0.7 [facility] Immature Granulocyte # (Auto) 0.01 10 3/uL 0.00-0.03 [facility] Platelet mean volume Auto (B ld) [Entitic vol]on 01-16-2024 Platelet mean volume (Bld) [Entitic vol] Platelet mean volume [Entitic volume] in Blood by Automated count Low 9.5-13.5 [facility] Platelets Auto (Bld) [#/Vol] on 01-16-2024 Platelets (Bld) [#/Vol] Platelets [#/vol ume] in Blood by Automated count 150-450 [facility] RBC Auto (Bld) [#/Vol]on RBC (Bld) [#/Vol] Erythrocytes [#/volume] in Blood by Automated count 4.20-5.40 [facility] Serum or plasma albumin/glob ulin mass ratioon 01-16-2024 Albumin/Globulin [Mass ratio] Serum or plasma albumin/globulin mass ratio [facility] Serum or plasma anion gap de terminationon 01-16-2024 Anion gap [Moles/Vol] Serum or plasma an ion gap determination [facility] Serum or plasma total choles terol/high density lipoprotein (HDL) cholesterol mass sundeep 01-16-2024 Cholesterol.total/Lisa sterol in HDL [Mass ratio] Serum or plasma total cholesterol/high density lipoprotein (HDL) cholesterol mass rat [facility] Comment on above: 3.3 - 4.4 LOW RISK4. 4 - 7.1 AVERAGE RISK7.1 - 11.0 MODERATE RISK>11.0 HIGH RISK Alanine aminotransferase [En zymatic activity/volume] in Serum or PlasmaOrdered By: Angy Lunsford on 01-07-2023 ALT [Catalytic activity/Vol] 18 U/L 7-52 [facility] Albumin [Mass/volume] in Ser um or Plasma by Bromocresol green (BCG) dye binding methoOrdered By: Angy Lunsford on 01-07-2023 Albumin BCG dye [Mass/Vol] 4.1 g/dL 3.5-5.7 [facility] Alkaline phosphatase [Enzyma tic activity/volume] in Serum or PlasmaOrdered By: Angy Lunsford on 01-07-2023 ALP [Catalytic activity/Vol] 62 U/L 34-104 [facility] Aspartate aminotransferase [ Enzymatic activity/volume] in Serum or PlasmaOrdered By: Angy Lunsford on 01-07-2023 AST [Catalytic activity/Vol] 15 U/L 13-39 [facility] Basophils Auto (Bld) [#/Vol] Ordered By: Angy Lunsford on 01-07-2023 Basophils (Bld) [#/Vol] 0.0 10*3/uL 0.0-0.2 [facility] Basophils/100 WBC Auto (Bld) Ordered By: Angymagdi Lunsford on 01-07-2023 Basophils/100 WBC (Bld) 0.5 % . F [facility] Bilirubin.total [Mass/volume ] in Serum or PlasmaOrdered By: Angy Lunsford on 01-07-2023 Bilirubin [Mass/Vol] 0.4 mg/dL 0.3-1.0 [facility] CMP with reflex to A1Con Albumin [Mass/Vol] 4.1 g/dL Normal 3.5-5.7 [facility] Comment on above: Order Comment: Reaso n for Exam Hyperlipidemia;Elevated fasting glucose;Annual physical exam Performed By: #### C BC, CMP wRFX A1C, LIPID #### [facility] [address] Albumin/Globulin [Mass ratio] 2.1 {ratio} Normal [facility] Comment on above: Order Comment: Reaso n for Exam Hyperlipidemia;Elevated fasting glucose;Annual physical exam Performed By: #### C BC, CMP wRFX A1C, LIPID #### [facility] [address] ALP [Catalytic activity/Vol] 62 U/L Normal 34-104 [facility] Comment on above: Order Comment: Reaso n for Exam Hyperlipidemia;Elevated fasting glucose;Annual physical exam Performed By: #### C BC, CMP wRFX A1C, LIPID #### [facility] [address] ALT [Catalytic activity/Vol] 18 U/L Normal 7-52 [facility] Comment on above: Order Comment: Reaso n for Exam Hyperlipidemia;Elevated fasting glucose;Annual physical exam Performed By: #### C BC, CMP wRFX A1C, LIPID #### [facility] [address] Anion gap [Moles/Vol] 7.7 mmol/L Normal 6.0-15.0 [facility] Comment on above: Order Comment: Reaso n for Exam Hyperlipidemia;Elevated fasting glucose;Annual physical exam Performed By: #### C BC, CMP wRFX A1C, LIPID #### [facility] [address] AST [Catalytic activity/Vol] 15 U/L Normal 13-39 [facility] Comment on above: Order Comment: Reaso n for Exam Hyperlipidemia;Elevated fasting glucose;Annual physical exam Performed By: #### C BC, CMP wRFX A1C, LIPID #### [facility] [address] [place] [address] [place] Bilirubin [Mass/Vol] 0.4 mg/dL Normal 0.3-1.0 [facility] Comment on above: Order Comment: Reaso n for Exam Hyperlipidemia;Elevated fasting glucose;Annual physical exam Performed By: #### C BC, CMP wRFX A1C, LIPID #### [facility] [address] [place] [address] [place] Calcium [Mass/Vol] 9.1 mg/dL Normal 8.6-10.3 [facility] Comment on above: Order Comment: Reaso n for Exam Hyperlipidemia;Elevated fasting glucose;Annual physical exam Performed By: #### C BC, CMP wRFX A1C, LIPID #### [facility] [address] [place] [address] [place] Chloride [Moles/Vol] 109 mmol/L High 98-107 [facility] Comment on above: Order Comment: Reaso n for Exam Hyperlipidemia;Elevated fasting glucose;Annual physical exam Performed By: #### C BC, CMP wRFX A1C, LIPID #### [facility] [address] [place] [address] [place] CO2 [Moles/Vol] 29.8 mmol/L Normal 21.0-31.0 [facility] Comment on above: Order Comment: Reaso n for Exam Hyperlipidemia;Elevated fasting glucose;Annual physical exam Performed By: #### C BC, CMP wRFX A1C, LIPID #### [facility] [address] Creatinine [Mass/Vol] 0.61 mg/dL Normal 0.60-1.20 [facility] Comment on above: Order Comment: Reaso n for Exam Hyperlipidemia;Elevated fasting glucose;Annual physical exam Performed By: #### C BC, CMP wRFX A1C, LIPID #### [facility] [address] [place] [address] [place] GFR/1.73 sq M.predicted MDRD (S/P/Bld) [Vol rate/Area] mL/min/{1.73_m2} [facility] Comment on above: Order Comment: Reaso n for Exam Hyperlipidemia;Elevated fasting glucose;Annual physical exam Performed By: #### C BC, CMP wRFX A1C, LIPID #### [facility] [address] [place] [address] [place] Globulin (S) [Mass/Vol] 2.0 g/dL Normal [facility] Comment on above: Order Comment: Reaso n for Exam Hyperlipidemia;Elevated fasting glucose;Annual physical exam Performed By: #### C BC, CMP wRFX A1C, LIPID #### [facility] [address] [place] [address] [place] Glucose [Mass/Vol] 86 mg/dL Normal 70-100 [facility] Comment on above: Order Comment: Reaso n for Exam Hyperlipidemia;Elevated fasting glucose;Annual physical exam Performed By: #### C BC, CMP wRFX A1C, LIPID #### [facility] [address] [place] [address] [place] Potassium [Moles/Vol] 4.5 mmol/L Normal 3.5-5.1 [facility] Comment on above: Order Comment: Reaso n for Exam Hyperlipidemia;Elevated fasting glucose;Annual physical exam Performed By: #### C BC, CMP wRFX A1C, LIPID #### [facility] [address] [place] [address] [place] Protein [Mass/Vol] 6.1 g/dL Low 6.4-8.9 [facility] Comment on above: Order Comment: Reaso n for Exam Hyperlipidemia;Elevated fasting glucose;Annual physical exam Performed By: #### C BC, CMP wRFX A1C, LIPID #### [facility] [address] [place] [id number] [place] Sodium [Moles/Vol] 142 mmol/L Normal 136-145 [facility] Comment on above: Order Comment: Reaso n for Exam Hyperlipidemia;Elevated fasting glucose;Annual physical exam Performed By: #### C BC, CMP wRFX A1C, LIPID #### [facility] [address] [place] [id number] [place] Urea nitrogen [Mass/Vol] 14 mg/dL Normal 7-25 [facility] Comment on above: Order Comment: Reaso n for Exam Hyperlipidemia;Elevated fasting glucose;Annual physical exam Performed By: #### C BC, CMP wRFX A1C, LIPID #### [facility] [address] [place] [id number] [place] Calcium [Mass/volume] in Ser um or PlasmaOrdered By: Angy Lunsford on 01-07-2023 Calcium [Mass/Vol] 9.1 mg/dL 8.6-10.3 [facility] Carbon dioxide, total [Moles /volume] in Serum or PlasmaOrdered By: Angy Lunsford on 01-07-2023 CO2 [Moles/Vol] 29.8 mmol/L 21.0-31.0 [facility] Chloride [Moles/volume] in S shala or PlasmaOrdered By: Angy Lunsford on 01-07-2023 Chloride [Moles/Vol] 109 mmol/L 98-107 [facility] Cholesterol [Mass/volume] in Serum or PlasmaOrdered By: Angy Lunsford on 01-07-2023 Cholesterol [Mass/Vol] 164 mg/dL 140-200 [facility] Comment on above: Chol less than 200 m g/dl low riskChol 201-239 mg/dl borderline riskChol 240 mg/dl and greater high risk Cholesterol in LDL Calc [Mas s/Vol]Ordered By: Angy Lunsford on 01-07-2023 Cholesterol in LDL [Mass/Vol] 89 mg/dL 0-100 [facility] Comment on above: LDL ATP III CLASSIFI CATIONLDL less than 100 mg/dL OptimalLDL 100-129 mg/dL Near or above optimalLDL 130-159 mg/dL Borderline highLDL 160-189 mg/dL HighLDL greater than 189 mg/dL Very high Cholesterol in VLDL Calc [Ma ss/Vol]Ordered By: Angy Lunsford on 01-07-2023 Cholesterol in VLDL [Mass/Vol] 20 mg/dL [facility] Complete Blood Count Auto Di ffon 01-07-2023 Basophils (Bld) [#/Vol] 0.0 10*3/uL Normal 0.0-0.2 [facility] Comment on above: Order Comment: Reaso n for Exam Hyperlipidemia;Elevated fasting glucose;Annual physical exam Result Comment: PERF ORMED BY: [place] [address] PATHOLOGIST SHOE CEMENTER LAMAR COLLIER M.D. Performed By: #### C BC, CMP wRFX A1C, LIPID #### [facility] [address] Basophils/100 WBC (Bld) 0.5 % Normal . [facility] Comment on above: Order Comment: Reaso n for Exam Hyperlipidemia;Elevated fasting glucose;Annual physical exam Performed By: #### C BC, CMP wRFX A1C, LIPID #### [facility] [address] Eosinophils (Bld) [#/Vol] 0.3 10*3/uL Normal 0.0-0.45 [facility] Comment on above: Order Comment: Reaso n for Exam Hyperlipidemia;Elevated fasting glucose;Annual physical exam Performed By: #### C BC, CMP wRFX A1C, LIPID #### [facility] [address] [place] [address] [place] Eosinophils/100 WBC (Bld) 4.6 % Normal . [facility] Comment on above: Order Comment: Reaso n for Exam Hyperlipidemia;Elevated fasting glucose;Annual physical exam Performed By: #### C BC, CMP wRFX A1C, LIPID #### [facility] [address] Erythrocyte distribution width (RBC) [Ratio] 12.6 % Normal 11.9-15.3 [facility] Comment on above: Order Comment: Reaso n for Exam Hyperlipidemia;Elevated fasting glucose;Annual physical exam Performed By: #### C BC, CMP wRFX A1C, LIPID #### [facility] [address] Hematocrit (Bld) [Volume fraction] 40.7 % Normal 34.0-46.4 [facility] Comment on above: Order Comment: Reaso n for Exam Hyperlipidemia;Elevated fasting glucose;Annual physical exam Performed By: #### C BC, CMP wRFX A1C, LIPID #### [facility] [address] Hemoglobin (Bld) [Mass/Vol] 13.8 g/dL Normal 11.8-15.4 [facility] Comment on above: Order Comment: Reaso n for Exam Hyperlipidemia;Elevated fasting glucose;Annual physical exam Performed By: #### C BC, CMP wRFX A1C, LIPID #### [facility] [address] Lymphocytes (Bld) [#/Vol] 2.1 10*3/uL Normal 1.00-4.8 [facility] Comment on above: Order Comment: Reaso n for Exam Hyperlipidemia;Elevated fasting glucose;Annual physical exam Performed By: #### C BC, CMP wRFX A1C, LIPID #### [facility] [address] Lymphocytes/100 WBC (Bld) 35.2 % Normal . [facility] Comment on above: Order Comment: Reaso n for Exam Hyperlipidemia;Elevated fasting glucose;Annual physical exam Performed By: #### C BC, CMP wRFX A1C, LIPID #### [facility] [address] MCH (RBC) [Entitic mass] 32.4 pg Normal 24.7-34.3 [facility] Comment on above: Order Comment: Reaso n for Exam Hyperlipidemia;Elevated fasting glucose;Annual physical exam Performed By: #### C BC, CMP wRFX A1C, LIPID #### [address] MCV (RBC) [Entitic vol] 95.7 fL Normal 80-100 [facility] Comment on above: Order Comment: Reaso n for Exam Hyperlipidemia;Elevated fasting glucose;Annual physical exam Performed By: #### C BC, CMP wRFX A1C, LIPID #### [facility] [address] [place] [address] Mean Corpuscular HGB Conc 33.9 g/dL Normal 32.0-35.0 [facility] Comment on above: Order Comment: Reaso n for Exam Hyperlipidemia;Elevated fasting glucose;Annual physical exam Performed By: #### C BC, CMP wRFX A1C, LIPID #### [facility] [address] [place] [address] [place] Monocytes (Bld) [#/Vol] 0.5 10*3/uL Normal 0.0-0.8 [facility] Comment on above: Order Comment: Reaso n for Exam Hyperlipidemia;Elevated fasting glucose;Annual physical exam Performed By: #### C BC, CMP wRFX A1C, LIPID #### [facility] [address] [place] [address] Monocytes/100 WBC (Bld) 8.9 % Normal . [facility] Comment on above: Order Comment: Reaso n for Exam Hyperlipidemia;Elevated fasting glucose;Annual physical exam Performed By: #### C BC, CMP wRFX A1C, LIPID #### [facility] [address] [place] [address] [place] Neutrophils (Bld) [#/Vol] 3.0 10*3/uL Normal 1.8-7.7 [facility] Comment on above: Order Comment: Reaso n for Exam Hyperlipidemia;Elevated fasting glucose;Annual physical exam Performed By: #### C BC, CMP wRFX A1C, LIPID #### [facility] [address] [place] [address] [place] Neutrophils/100 WBC (Bld) 50.8 % Normal . [facility] Comment on above: Order Comment: Reaso n for Exam Hyperlipidemia;Elevated fasting glucose;Annual physical exam Performed By: #### C BC, CMP wRFX A1C, LIPID #### [facility] [address] [place] [address] [place] NRBC% 0.1 /100{WBC} Normal 0-0.5 [facility] Comment on above: Order Comment: Reaso n for Exam Hyperlipidemia;Elevated fasting glucose;Annual physical exam Performed By: #### C BC, CMP wRFX A1C, LIPID #### [facility] [address] [place] [address] [place] Platelet mean volume (Bld) [Entitic vol] 8.3 fL Normal 6.3-10.7 [facility] Comment on above: Order Comment: Reaso n for Exam Hyperlipidemia;Elevated fasting glucose;Annual physical exam Performed By: #### C BC, CMP wRFX A1C, LIPID #### [facility] [address] [place] [id number] [place] Platelets (Bld) [#/Vol] 303 10*3/uL Normal 150-450 [facility] Comment on above: Order Comment: Reaso n for Exam Hyperlipidemia;Elevated fasting glucose;Annual physical exam Performed By: #### C BC, CMP wRFX A1C, LIPID #### [facility] [address] [place] [id number] [place] RBC (Bld) [#/Vol] 4.25 10*6/uL Normal 3.60-5.00 [facility] Comment on above: Order Comment: Reaso n for Exam Hyperlipidemia;Elevated fasting glucose;Annual physical exam Performed By: #### C BC, CMP wRFX A1C, LIPID #### [facility] [address] [place] [address] [place] WBC (Bld) [#/Vol] 5.9 10*3/uL Normal 3.8-11.6 [facility] Comment on above: Order Comment: Reaso n for Exam Hyperlipidemia;Elevated fasting glucose;Annual physical exam Performed By: #### C BC, CMP wRFX A1C, LIPID #### [facility] [address] Creatinine [Mass/volume] in Serum or PlasmaOrdered By: Angy Lunsford on 01-07-2023 Creatinine [Mass/Vol] 0.61 mg/dL 0.60-1.20 [facility] Eosinophils Auto (Bld) [#/Vo l]Ordered By: Angy Lunsford on 01-07-2023 Eosinophils (Bld) [#/Vol] 0.3 10*3/uL 0.0-0.45 [facility] Eosinophils/100 WBC Auto (Bl d)Ordered By: Angy Lunsford on 01-07-2023 Eosinophils/100 WBC (Bld) 4.6 % . [facility] Erythrocyte distribution wid th Auto (RBC) [Ratio]Ordered By: Angy Lunsford on 01-07-2023 Erythrocyte distribution width (RBC) [Ratio] 12.6 % 11.9-15.3 [facility] Globulin Calc (S) [Mass/Vol] Ordered By: Angy Lunsford on 01-07-2023 Globulin (S) [Mass/Vol] 2.0 g/dL [facility] Glucose [Mass/volume] in Ser um or PlasmaOrdered By: Angy Lunsford on 01-07-2023 Glucose [Mass/Vol] 86 mg/dL 70-100 [facility] Hematocrit Auto (Bld) [Volum e fraction]Ordered By: Angy Lunsford on 01-07-2023 Hematocrit (Bld) [Volume fraction] 40.7 % 34.0-46.4 [facility] Hemoglobin [Mass/volume] in BloodOrdered By: Angy Lunsford on 01-07-2023 Hemoglobin (Bld) [Mass/Vol] 13.8 g/dL 11.8-15.4 [facility] Leukocytes [#/volume] correc nubia for nucleated erythrocytes in Blood by Automated counOrdered By: Angy Lunsford on 01-07-2023 WBC corrected for nucl RBC Auto (Bld) [#/Vol] 5.9 10*3/uL 3.8-11.6 [facility] Lipid Panelon 01-07-2023 Cholesterol [Mass/Vol] 164 mg/dL Normal 140-200 [facility] Comment on above: Order Comment: Reaso n for Exam Hyperlipidemia;Elevated fasting glucose;Annual physical exam Result Comment: Chol less than 200 mg/dl low risk Chol 201-239 mg/dl borderline risk Chol 240 mg/dl and greater high risk Performed By: #### C BC, CMP wRFX A1C, LIPID #### [facility] [address] Cholesterol in HDL [Mass/Vol] 54 mg/dL Normal 23-92 [facility] Comment on above: Order Comment: Reaso n for Exam Hyperlipidemia;Elevated fasting glucose;Annual physical exam Result Comment: HDL CHOL ATP-III CLASSIFICATION Cardiovascular Risk HDL > or equal to 60 mg/dL LOW HDL < 40 mg/dL HIGH Performed By: #### C BC, CMP wRFX A1C, LIPID #### [facility] [address] Cholesterol.total/Lisa sterol in HDL [Mass ratio] 3.0 {ratio} Normal <5.0 [facility] Comment on above: Order Comment: Reaso n for Exam Hyperlipidemia;Elevated fasting glucose;Annual physical exam Result Comment: PERF ORMED BY: [facility] [address] [place] [address] PATHOLOGIST SHOE CEMENTER LAMAR COLLIER M.D. Performed By: #### C BC, CMP wRFX A1C, LIPID #### [facility] [address] [place] [id number] [facility] LDL Cholesterol,Calculated 89 mg/dL Normal 0-100 [facility] Comment on above: Order Comment: Reaso n for Exam Hyperlipidemia;Elevated fasting glucose;Annual physical exam Result Comment: LDL ATP III CLASSIFICATION LDL less than 100 mg/dL Optimal LDL 100-129 mg/dL Near or above optimal LDL 130-159 mg/dL Borderline high LDL 160-189 mg/dL High LDL greater than 189 mg/dL Very high Performed By: #### C BC, CMP wRFX A1C, LIPID #### [facility] [address] Triglyceride w/Reflex 104 mg/dL Normal 0-149 [facility] Comment on above: Order Comment: Reaso [...] C BC, CMP wRFX A1C, LIPID #### [facility] [address] VLDL CHOLESTEROL 20 mg/dL Normal [facility] Comment on above: Order Comment: Reaso n for Exam Hyperlipidemia;Elevated fasting glucose;Annual physical exam Performed By: #### C BC, CMP wRFX A1C, LIPID #### [facility] [address] [place] [id number] [facility] Lymphocytes Auto (Bld) [#/Vo l]Ordered By: Angy Lunsford on 01-07-2023 Lymphocytes (Bld) [#/Vol] 2.1 10*3/uL 1.00-4.8 [facility] Lymphocytes/100 WBC Auto (Bl d)Ordered By: Angy Lunsford on 01-07-2023 Lymphocytes/100 WBC (Bld) 35.2 % . [facility] MCH Auto (RBC) [Entitic mass ]Ordered By: Angy Lunsford on 01-07-2023 MCH (RBC) [Entitic mass] 32.4 pg 24.7-34.3 [facility] MCHC Auto (RBC) [Mass/Vol]Or dered By: Angy Lunsford on 01-07-2023 MCHC (RBC) [Mass/Vol] 33.9 g/dL 32.0-35.0 [facility] MCV Auto (RBC) [Entitic vol] Ordered By: Angy Lunsford on 01-07-2023 MCV (RBC) [Entitic vol] 95.7 fL 80-100 [facility] Monocytes Auto (Bld) [#/Vol] Ordered By: Angy Lunsford on 01-07-2023 Monocytes (Bld) [#/Vol] 0.5 10*3/uL 0.0-0.8 [facility] Monocytes/100 WBC Auto (Bld) Ordered By: Angy Lunsford on 01-07-2023 Monocytes/100 WBC (Bld) 8.9 % . [facility] Neutrophils Auto (Bld) [#/Vo l]Ordered By: Angy Lunsford on 01-07-2023 Neutrophils (Bld) [#/Vol] 3.0 10*3/uL 1.8-7.7 [facility] Neutrophils/100 WBC Auto (Bl d)Ordered By: Angy Lunsford on 01-07-2023 Neutrophils/100 WBC (Bld) 50.8 % . [facility] No Panel InformationOrdered By: Angy Lunsford on 01-07-2023 Estimated GFR (CKD-EPI) > 60.0 mL/Min [facility] Creatinine Clearance (Chem N/A [facility] Nucleated erythrocytes [Pres ence] in Blood by Automated countOrdered By: Angy Lunsford on 01-07-2023 Nucleated RBC Auto Ql (Bld) 0.1 /100{WBC} 0-0.5 [facility] Platelet mean volume Auto (B ld) [Entitic vol]Ordered By: Angy Lunsford on 01-07-2023 Platelet mean volume (Bld) [Entitic vol] 8.3 fL 6.3-10.7 [facility] Platelets Auto (Bld) [#/Vol] Ordered By: Angy Lunsford on 01-07-2023 Platelets (Bld) [#/Vol] 303 10*3/uL 150-450 [facility] Potassium [Moles/volume] in Serum or PlasmaOrdered By: Angy Lunsford on 01-07-2023 Potassium [Moles/Vol] 4.5 mmol/L 3.5-5.1 [facility] Protein [Mass/volume] in Ser um or PlasmaOrdered By: Angy Lunsford on 01-07-2023 Protein [Mass/Vol] 6.1 g/dL 6.4-8.9 [facility] RBC Auto (Bld) [#/Vol]Ordere d By: Angy Lunsford on 01-07-2023 RBC (Bld) [#/Vol] 4.25 10*6/uL 3.60-5.00 [facility] Serum or plasma albumin/glob ulin mass ratioOrdered By: Angy Lunsford on 01-07-2023 Albumin/Globulin [Mass ratio] 2.1 {ratio} [facility] Serum or plasma anion gap de terminationOrdered By: Angy Lunsford on 01-07-2023 Anion gap [Moles/Vol] 7.7 mmol/L 6.0-15.0 [facility] Serum or plasma high density lipoprotein (HDL) cholesterol measurementOrdered By: Angy Lunsford on 01-07-2023 Cholesterol in HDL [Mass/Vol] 54 mg/dL 23-92 [facility] Comment on above: HDL CHOL ATP-III CLA SSIFICATION Cardiovascular RiskHDL > or equal to 60 mg/dL LOWHDL < 40 mg/dL HIGH Serum or plasma total choles terol/high density lipoprotein (HDL) cholesterol mass ratOrdered By: Angy Lunsford on 01-07-2023 Cholesterol.total/Lisa sterol in HDL [Mass ratio] 3.0 {ratio} <5.0 [facility] Sodium [Moles/volume] in Ser um or PlasmaOrdered By: Angy Lunsford on 01-07-2023 Sodium [Moles/Vol] 142 mmol/L 136-145 [facility] Triglyceride [Mass/volume] i n Serum or PlasmaOrdered By: Angy Lunsford on 01-07-2023 Triglyceride [Mass/Vol] 104 mg/dL 0-149 [facility] Comment on above: TRIG ATP III CLASSIF ICATIONTRIG less than 150 mg/dL NormalTRIG 150-199 mg/dL Borderline highTRIG 200-500 mg/dL High TRIG greater than 500 mg/dL Very highStandard traceable to the Center for Disease Conrtrol and Prevention (CDC) test method. Urea nitrogen [Mass/volume] in Serum or PlasmaOrdered By: Angy Lunsford on 01-07-2023 Urea nitrogen [Mass/Vol] 14 mg/dL 7-25 [facility] WBC Auto (Bld) [#/Vol]Ordere d By: Angy Lunsford on 01-07-2023 WBC (Bld) [#/Vol] 5.9 10*3/uL 3.8-11.6 [facility] A1C HEMOGLOBINon 02-03-2022 HbA1c (Bld) [Mass fraction] 5.0 % [employer] [employer] Other HbA1c (Bld) [Mass fraction]o n 02-03-2022 A1C HEMOGLOBIN [facility] [employer] Other Basophils Auto (Bld) [#/Vol] Ordered By: La Aquino on 01-22-2022 Basophils (Bld) [#/Vol] 0.1 10*3/uL 0.0-0.2 [facility] Basophils/100 WBC Auto (Bld) Ordered By: La Aquino on 01-22-2022 Basophils/100 WBC (Bld) 0.9 % . [facility] Body fluid albumin measureme nt (mass/volume)Ordered By: La Aquino on 01-22-2022 Albumin (Body fld) [Mass/Vol] 3.5 g/dL 3.2-5.5 [facility] Cholesterol [Mass/volume] in Serum or PlasmaOrdered By: La Aquino on 01-22-2022 Cholesterol [Mass/Vol] 155 mg/dL 140-200 [facility] Comment on above: Chol less than 200 m g/dl low riskChol 201-239 mg/dl borderline riskChol 240 mg/dl and greater high risk Cholesterol in LDL Calc [Mas s/Vol]Ordered By: La Aquino on 01-22-2022 Cholesterol in LDL [Mass/Vol] 75 mg/dL 0-100 [facility] Comment on above: LDL ATP III CLASSIFI CATIONLDL less than 100 mg/dL OptimalLDL 100-129 mg/dL Near or above optimalLDL 130-159 mg/dL Borderline highLDL 160-189 mg/dL HighLDL greater than 189 mg/dL Very high Cholesterol in VLDL Calc [Ma ss/Vol]Ordered By: La Aquino on 01-22-2022 Cholesterol in VLDL [Mass/Vol] 29 mg/dL [facility] Complete Blood Count Auto Di ffon 01-22-2022 Basophils (Bld) [#/Vol] 0.1 10*3/uL Normal 0.0-0.2 [facility] Comment on above: Order Comment: Reaso n for Exam Hyperlipidemia;Primary hypertension Result Comment: PERF ORMED BY: [place] [address] PATHOLOGIST SHOE CEMENTER LAMAR COLLIER M.D. Performed By: #### C MP, LIPID, CBC #### [facility] [address] Basophils/100 WBC (Bld) 0.9 % Normal . [facility] Comment on above: Order Comment: Reaso n for Exam Hyperlipidemia;Primary hypertension Performed By: #### C MP, LIPID, CBC #### [facility] [address] [place] [address] [place] Eosinophils (Bld) [#/Vol] 0.2 10*3/uL Normal 0.0-0.45 [facility] Comment on above: Order Comment: Reaso n for Exam Hyperlipidemia;Primary hypertension Performed By: #### C MP, LIPID, CBC #### [facility] [address] [place] [address] [place] Eosinophils/100 WBC (Bld) 3.2 % Normal . [facility] Comment on above: Order Comment: Reaso n for Exam Hyperlipidemia;Primary hypertension Performed By: #### C MP, LIPID, CBC #### [facility] [address] [place] [address] [place] Erythrocyte distribution width (RBC) [Ratio] 12.9 % Normal 11.9-15.3 [facility] Comment on above: Order Comment: Reaso n for Exam Hyperlipidemia;Primary hypertension Performed By: #### C MP, LIPID, CBC #### [facility] [address] Hematocrit (Bld) [Volume fraction] 41.0 % Normal 34.0-46.4 [facility] Comment on above: Order Comment: Reaso n for Exam Hyperlipidemia;Primary hypertension Performed By: #### C MP, LIPID, CBC #### [facility] [address] Hemoglobin (Bld) [Mass/Vol] 13.6 g/dL Normal 11.8-15.4 [facility] Comment on above: Order Comment: Reaso n for Exam Hyperlipidemia;Primary hypertension Performed By: #### C MP, LIPID, CBC #### [facility] [address] Lymphocytes (Bld) [#/Vol] 2.3 10*3/uL Normal 1.00-4.8 [facility] Comment on above: Order Comment: Reaso n for Exam Hyperlipidemia;Primary hypertension Performed By: #### C MP, LIPID, CBC #### [address] Lymphocytes/100 WBC (Bld) 35.0 % Normal . [facility] Comment on above: Order Comment: Reaso n for Exam Hyperlipidemia;Primary hypertension Performed By: #### C MP, LIPID, CBC #### [facility] [address] MCH (RBC) [Entitic mass] 31.5 pg Normal 24.7-34.3 [facility] Comment on above: Order Comment: Reaso n for Exam Hyperlipidemia;Primary hypertension Performed By: #### C MP, LIPID, CBC #### [facility] [address] MCV (RBC) [Entitic vol] 94.7 fL Normal 80-100 [facility] Comment on above: Order Comment: Reaso n for Exam Hyperlipidemia;Primary hypertension Performed By: #### C MP, LIPID, CBC #### [facility] [address] [place] [address] [place] Mean Corpuscular HGB Conc 33.2 g/dL Normal 32.0-35.0 [facility] Comment on above: Order Comment: Reaso n for Exam Hyperlipidemia;Primary hypertension Performed By: #### C MP, LIPID, CBC #### [facility] [address] [place] [address] [place] Monocytes (Bld) [#/Vol] 0.5 10*3/uL Normal 0.0-0.8 [facility] Comment on above: Order Comment: Reaso n for Exam Hyperlipidemia;Primary hypertension Performed By: #### C MP, LIPID, CBC #### [facility] [address] [place] [address] [place] Monocytes/100 WBC (Bld) 8.2 % Normal . [facility] Comment on above: Order Comment: Reaso n for Exam Hyperlipidemia;Primary hypertension Performed By: #### C MP, LIPID, CBC #### [facility] [address] [place] [address] [place] Neutrophils (Bld) [#/Vol] 3.5 10*3/uL Normal 1.8-7.7 [facility] Comment on above: Order Comment: Reaso n for Exam Hyperlipidemia;Primary hypertension Performed By: #### C MP, LIPID, CBC #### [facility] [address] [place] [id number] [place] Neutrophils/100 WBC (Bld) 52.7 % Normal . [facility] Comment on above: Order Comment: Reaso n for Exam Hyperlipidemia;Primary hypertension Performed By: #### C MP, LIPID, CBC #### [facility] [address] [place] [id number] [place] Nucleated RBC/100 WBC (Bld) [Ratio] 0.1 % Normal 0-0.5 [facility] Comment on above: Order Comment: Reaso n for Exam Hyperlipidemia;Primary hypertension Performed By: #### C MP, LIPID, CBC #### [facility] [address] [place] [address] [place] Platelet mean volume (Bld) [Entitic vol] 8.4 fL Normal 6.3-10.7 [facility] Comment on above: Order Comment: Reaso n for Exam Hyperlipidemia;Primary hypertension Performed By: #### C MP, LIPID, CBC #### [facility] [address] Platelets (Bld) [#/Vol] 321 10*3/uL Normal 150-450 [facility] Comment on above: Order Comment: Reaso n for Exam Hyperlipidemia;Primary hypertension Performed By: #### C MP, LIPID, CBC #### [facility] [address] RBC (Bld) [#/Vol] 4.33 10*6/uL Normal 3.60-5.00 [facility] Comment on above: Order Comment: Reaso n for Exam Hyperlipidemia;Primary hypertension Performed By: #### C MP, LIPID, CBC #### [facility] [address] WBC (Bld) [#/Vol] 6.6 10*3/uL Normal 4.5-11.0 [facility] Comment on above: Order Comment: Reaso n for Exam Hyperlipidemia;Primary hypertension Performed By: #### C MP, LIPID, CBC #### [facility] [address] Comprehensive Metabolic Pane zuly 01-22-2022 Albumin [Mass/Vol] 3.5 g/dL Normal 3.2-5.5 [facility] Comment on above: Order Comment: Reaso n for Exam Hyperlipidemia;Primary hypertension Performed By: #### C MP, LIPID, CBC #### [facility] [address] [place] [address] Albumin/Globulin [Mass ratio] 1.5 {ratio} Normal [facility] Comment on above: Order Comment: Reaso n for Exam Hyperlipidemia;Primary hypertension Performed By: #### C MP, LIPID, CBC #### [facility] [address] ALP [Catalytic activity/Vol] 67 U/L Normal 32-92 [facility] Comment on above: Order Comment: Reaso n for Exam Hyperlipidemia;Primary hypertension Performed By: #### C MP, LIPID, CBC #### [facility] [address] [place] [id number] [facility] ALT [Catalytic activity/Vol] 22 U/L Normal 10-60 [facility] Comment on above: Order Comment: Reaso n for Exam Hyperlipidemia;Primary hypertension Performed By: #### C MP, LIPID, CBC #### [facility] [address] Anion gap [Moles/Vol] 11.0 mmol/L Normal 6.0-15.0 [facility] Comment on above: Order Comment: Reaso n for Exam Hyperlipidemia;Primary hypertension Performed By: #### C MP, LIPID, CBC #### [facility] [address] AST [Catalytic activity/Vol] 17 U/L Normal 10-42 [facility] Comment on above: Order Comment: Reaso n for Exam Hyperlipidemia;Primary hypertension Performed By: #### C MP, LIPID, CBC #### [facility] [address] Bilirubin [Mass/Vol] 0.6 mg/dL Normal 0.3-1.2 [facility] Comment on above: Order Comment: Reaso n for Exam Hyperlipidemia;Primary hypertension Performed By: #### C MP, LIPID, CBC #### [facility] [address] Calcium [Mass/Vol] 9.2 mg/dL Normal 8.2-10.2 [facility] Comment on above: Order Comment: Reaso n for Exam Hyperlipidemia;Primary hypertension Performed By: #### C MP, LIPID, CBC #### [facility] [address] [place] [id number] [place] Chloride [Moles/Vol] 104 mmol/L Normal 95-114 [facility] Comment on above: Order Comment: Reaso n for Exam Hyperlipidemia;Primary hypertension Performed By: #### C MP, LIPID, CBC #### [facility] [address] [place] [id number] [place] CO2 [Moles/Vol] 25.8 mmol/L Normal 22.0-30.0 [facility] Comment on above: Order Comment: Reaso n for Exam Hyperlipidemia;Primary hypertension Performed By: #### C MP, LIPID, CBC #### [facility] [address] Creatinine [Mass/Vol] 0.64 mg/dL Normal 0.44-1.03 [facility] Comment on above: Order Comment: Reaso n for Exam Hyperlipidemia;Primary hypertension Performed By: #### C MP, LIPID, CBC #### [facility] [address] Estimated GFR ( Izabel > 60 [facility] Comment on above: Order Comment: Reaso n for Exam Hyperlipidemia;Primary hypertension Result Comment: GFR estimated reference range: According to KDOQI guidelines, <60 ml/min/1.73m2 is sufficient to diagnose a patient with chronic kidney disease. Performed By: #### C MP, LIPID, CBC #### [facility] [address] Estimated GFR (Non- Am > 60 [facility] Comment on above: Order Comment: Reaso n for Exam Hyperlipidemia;Primary hypertension Performed By: #### C MP, LIPID, CBC #### [facility] [address] Globulin (S) [Mass/Vol] 2.4 g/dL Normal [facility] Comment on above: Order Comment: Reaso n for Exam Hyperlipidemia;Primary hypertension Performed By: #### C MP, LIPID, CBC #### [address] Glucose [Mass/Vol] 104 mg/dL High 70-100 [facility] Comment on above: Order Comment: Reaso n for Exam Hyperlipidemia;Primary hypertension Result Comment: [place] Glucose Reference Range is dependent on time and content of last meal. Glucose of more than 200 mg/dL in a nonstressed, ambulatory subject supports the diagnosis of Diabetes Mellitus. ADA recommended reference range Performed By: #### C MP, LIPID, CBC #### [facility] [address] Potassium [Moles/Vol] 3.8 mmol/L Normal 3.5-5.1 [facility] Comment on above: Order Comment: Reaso n for Exam Hyperlipidemia;Primary hypertension Performed By: #### C MP, LIPID, CBC #### [facility] [address] [place] [address] [place] Protein [Mass/Vol] 5.9 g/dL Low 6.1-7.9 [facility] Comment on above: Order Comment: Reaso n for Exam Hyperlipidemia;Primary hypertension Performed By: #### C MP, LIPID, CBC #### [facility] [address] [place] [id number] [place] Sodium [Moles/Vol] 137 mmol/L Normal 136-146 [facility] Comment on above: Order Comment: Reaso n for Exam Hyperlipidemia;Primary hypertension Performed By: #### C MP, LIPID, CBC #### [facility] [address] [place] [id number] [place] Urea nitrogen [Mass/Vol] 9 mg/dL Normal 9-23 [facility] Comment on above: Order Comment: Reaso n for Exam Hyperlipidemia;Primary hypertension Performed By: #### C MP, LIPID, CBC #### [facility] [address] [place] [address] [place] Creatinine and Glomerular fi ltration rate.predicted panel (S/P/Bld)Ordered By: La Aquino on 01-22-2022 Creatinine [Mass/Vol] 0.64 mg/dL 0.44-1.03 [facility] Eosinophils Auto (Bld) [#/Vo l]Ordered By: La Aquino on 01-22-2022 Eosinophils (Bld) [#/Vol] 0.2 10*3/uL 0.0-0.45 [facility] Eosinophils/100 WBC Auto (Bl d)Ordered By: La Aquino on 01-22-2022 Eosinophils/100 WBC (Bld) 3.2 % . [facility] Erythrocyte distribution wid th Auto (RBC) [Ratio]Ordered By: La Aquion on 01-22-2022 Erythrocyte distribution width (RBC) [Ratio] 12.9 % 11.9-15.3 [facility] Estimated glomerular filtrat ion rate (GFR) non- AmericanOrdered By: La Aquino on 01-22-2022 GFR/1.73 sq M.predicted among non-blacks MDRD (S/P/Bld) [Vol rate/Area] > 60 mL/Min [facility] Globulin Calc (S) [Mass/Vol] Ordered By: La Aquino on 01-22-2022 Globulin (S) [Mass/Vol] 2.4 g/dL [facility] Hematocrit Auto (Bld) [Volum e fraction]Ordered By: La Aquino on 01-22-2022 Hematocrit (Bld) [Volume fraction] 41.0 % 34.0-46.4 [facility] Hemoglobin [Mass/volume] in BloodOrdered By: La Aquino on 01-22-2022 Hemoglobin (Bld) [Mass/Vol] 13.6 g/dL 11.8-15.4 [facility] Laboratory - Hematology and Cell countsOrdered By: La Aquino on 01-22-2022 Nucleated RBC/100 WBC (Bld) [Ratio] 0.1 % 0-0.5 [facility] Leukocytes [#/volume] in Blo od by Automated countOrdered By: La Aquino on 01-22-2022 WBC (Bld) [#/Vol] 6.6 10*3/uL 4.5-11.0 [facility] Lipid Panelon 01-22-2022 Cholesterol [Mass/Vol] 155 mg/dL Normal 140-200 [facility] Comment on above: Order Comment: Reaso n for Exam Hyperlipidemia;Primary hypertension Result Comment: Chol less than 200 mg/dl low risk Chol 201-239 mg/dl borderline risk Chol 240 mg/dl and greater high risk Performed By: #### C MP, LIPID, CBC #### [address] Cholesterol in HDL [Mass/Vol] 50 mg/dL Normal 35-85 [facility] Comment on above: Order Comment: Reaso n for Exam Hyperlipidemia;Primary hypertension Result Comment: HDL CHOL ATP-III CLASSIFICATION Cardiovascular Risk HDL > or equal to 60 mg/dL LOW HDL < 40 mg/dL HIGH Performed By: #### C MP, LIPID, CBC #### [facility] [address] Cholesterol.total/Lisa sterol in HDL [Mass ratio] 3.1 {ratio} Normal <5.0 [facility] Comment on above: Order Comment: Reaso n for Exam Hyperlipidemia;Primary hypertension Result Comment: PERF ORMED BY: [place] [address] PATHOLOGIST SHOE CEMENTER LAMAR COLLIER M.D. Performed By: #### C MP, LIPID, CBC #### [facility] [address] LDL Cholesterol,Calculated 75 mg/dL Normal 0-100 [facility] Comment on above: Order Comment: Reaso n for Exam Hyperlipidemia;Primary hypertension Result Comment: LDL ATP III CLASSIFICATION LDL less than 100 mg/dL Optimal LDL 100-129 mg/dL Near or above optimal LDL 130-159 mg/dL Borderline high LDL 160-189 mg/dL High LDL greater than 189 mg/dL Very high Performed By: #### C MP, LIPID, CBC #### [facility] [address] Triglyceride w/Reflex 149 mg/dL Normal 35-149 [facility] Comment on above: Order Comment: Reaso n for Exam Hyperlipidemia;Primary hypertension Result Comment: TRIG ATP III CLASSIFICATION TRIG less than 150 mg/dL Normal TRIG 150-199 mg/dL Borderline high TRIG 200-500 mg/dL High TRIG greater than 500 mg/dL Very high Standard traceable to the Center for Disease Conrtrol and Prevention (CDC) test method. Performed By: #### C MP, LIPID, CBC #### [facility] [address] VLDL CHOLESTEROL 29 mg/dL Normal [facility] Comment on above: Order Comment: Reaso n for Exam Hyperlipidemia;Primary hypertension Performed By: #### C MP, LIPID, CBC #### [facility] [address] [place] [address] [place] Lymphocytes Auto (Bld) [#/Vo l]Ordered By: La Aquino on 01-22-2022 Lymphocytes (Bld) [#/Vol] 2.3 10*3/uL 1.00-4.8 [facility] Lymphocytes/100 WBC Auto (Bl d)Ordered By: La Aquino on 01-22-2022 Lymphocytes/100 WBC (Bld) 35.0 % . [facility] MCH Auto (RBC) [Entitic mass ]Ordered By: La Aquino on 01-22-2022 MCH (RBC) [Entitic mass] 31.5 pg 24.7-34.3 [facility] MCHC Auto (RBC) [Mass/Vol]Or dered By: La Aquino on 01-22-2022 MCHC (RBC) [Mass/Vol] 33.2 g/dL 32.0-35.[address] [facility] MCV Auto (RBC) [Entitic vol] Ordered By: La Aquino on 01-22-2022 MCV (RBC) [Entitic vol] 94.7 fL 80-100 [facility] Monocytes Auto (Bld) [#/Vol] Ordered By: La Aquino on 01-22-2022 Monocytes (Bld) [#/Vol] 0.5 10*3/uL 0.0-0.8 [facility] Monocytes/100 WBC Auto (Bld) Ordered By: La Aquino on 01-22-2022 Monocytes/100 WBC (Bld) 8.2 % . [facility] Neutrophils Auto (Bld) [#/Vo l]Ordered By: La Aquino on 01-22-2022 Neutrophils (Bld) [#/Vol] 3.5 10*3/uL 1.8-7.7 [facility] Neutrophils/100 WBC Auto (Bl d)Ordered By: La Aquino on 01-22-2022 Neutrophils/100 WBC (Bld) 52.7 % . [facility] No Panel InformationOrdered By: La Aquino on 01-22-2022 Estimated GFR () > 60 mL/Min [facility] Comment on above: GFR estimated refere nce range: According to KDOQI guidelines, <60 ml/min/1.73m2 is sufficient to diagnose a patient with chronic kidney disease. Pharmacy Creatinine Clearance (Chem N/A [facility] Platelet mean volume Auto (B ld) [Entitic vol]Ordered By: La Aquino on 01-22-2022 Platelet mean volume (Bld) [Entitic vol] 8.4 fL 6.3-10.7 [facility] Platelets Auto (Bld) [#/Vol] Ordered By: La Aquino on 01-22-2022 Platelets (Bld) [#/Vol] 321 10*3/uL 150-450 [facility] Protein [Mass/volume] in Ser um or PlasmaOrdered By: La Aquino on 01-22-2022 Protein [Mass/Vol] 5.9 g/dL 6.1-7.9 [facility] RBC Auto (Bld) [#/Vol]Ordere d By: La Aquino on 01-22-2022 RBC (Bld) [#/Vol] 4.33 10*6/uL 3.60-5.00 [facility] Serum or plasma alanine ochoa otransferase measurement without P-5'-P (enzymatic activiOrdered By: La Aquino on 01-22-2022 ALT No additional P-5'-P [Catalytic activity/Vol] 22 U/L 10-60 [facility] Serum or plasma albumin/glob ulin mass ratioOrdered By: La Aquino on 01-22-2022 Albumin/Globulin [Mass ratio] 1.5 {ratio} [facility] Serum or plasma alkaline shane sphatase measurement (enzymatic activity/volume)Ordered By: La Aquino on 01-22-2022 ALP [Catalytic activity/Vol] 67 U/L 32-92 [facility] Serum or plasma anion gap de terminationOrdered By: La Aquino on 01-22-2022 Anion gap [Moles/Vol] 11.0 mmol/L 6.0-15.0 [facility] Serum or plasma aspartate am inotransferase measurement (enzymatic activity/volume)Ordered By: La Aquino on 01-22-2022 AST [Catalytic activity/Vol] 17 U/L 10-42 [facility] Serum or plasma calcium lindsey urement (mass/volume)Ordered By: La Aquino on 01-22-2022 Calcium [Mass/Vol] 9.2 mg/dL 8.2-10.2 [facility] Serum or plasma chloride ayden surement (moles/volume)Ordered By: La Aquino on 01-22-2022 Chloride [Moles/Vol] 104 mmol/L 95-114 [facility] Serum or plasma glucose lindsey urement (mass/volume)Ordered By: La Aquino on 01-22-2022 Glucose [Mass/Vol] 104 mg/dL 70-100 [facility] Comment on above: ADA recommended refe rence rangeRandom Glucose Reference Range is dependent on time and content of last meal. Glucose of more than 200 mg/dL in a nonstressed, ambulatory subject supports the diagnosis of Diabetes Mellitus. Serum or plasma high density lipoprotein (HDL) cholesterol measurementOrdered By: La Aquino on 01-22-2022 Cholesterol in HDL [Mass/Vol] 50 mg/dL 35-85 [facility] Comment on above: HDL CHOL ATP-III CLA SSIFICATION Cardiovascular RiskHDL > or equal to 60 mg/dL LOWHDL < 40 mg/dL HIGH Serum or plasma potassium me asurement (moles/volume)Ordered By: La Aquino on 01-22-2022 Potassium [Moles/Vol] 3.8 mmol/L 3.5-5.1 [facility] Serum or plasma sodium measu rement (moles/volume)Ordered By: La Aquino on 01-22-2022 Sodium [Moles/Vol] 137 mmol/L 136-146 [facility] Serum or plasma total biliru bin measurement (mass/volume)Ordered By: La Aquino on 01-22-2022 Bilirubin [Mass/Vol] 0.6 mg/dL 0.3-1.2 [facility] Serum or plasma total carbon dioxide measurement (moles/volume)Ordered By: La Aquino on 01-22-2022 CO2 [Moles/Vol] 25.8 mmol/L 22.0-30.0 [facility] Serum or plasma total choles terol/high density lipoprotein (HDL) cholesterol mass ratOrdered By: La Aquino on 01-22-2022 Cholesterol.total/Lisa sterol in HDL [Mass ratio] 3.1 {ratio} <5.0 [facility] Serum or plasma urea nitroge n measurement (mass/volume)Ordered By: La Aquino on 01-22-2022 Urea nitrogen [Mass/Vol] 9 mg/dL 9 [facility] Triglyceride [Mass/volume] i n Serum or PlasmaOrdered By: La Aquino on 01-22-2022 Triglyceride [Mass/Vol] 149 mg/dL 35-149 [facility] Comment on above: TRIG ATP III CLASSIF ICATIONTRIG less than 150 mg/dL NormalTRIG 150-199 mg/dL Borderline highTRIG 200-500 mg/dL High TRIG greater than 500 mg/dL Very highStandard traceable to the Center for Disease Conrtrol and Prevention (CDC) test method. Vital Signs Date Time Vital Sign Value Performing Clinician Facility 06-13-2024 08:33-0400 Body height 159.38 cm [facility] 06-13-2024 08:33-0400 Body mass index (BMI) [Ratio] 40.7 kg/m2 [facility] 06-13-2024 08:33-0400 Body temperature 97.2 [degF] [facility] 06-13-2024 08:33-0400 Body weight 103.41 kg [facility] 06-13-2024 08:33-0400 Diastolic blood pressure 76 mm[Hg] [facility] 06-13-2024 08:33-0400 Heart rate 78 /min [facility] 06-13-2024 08:33-0400 SaO2% (BldA) [Mass fraction] 98 % [facility] 06-13-2024 08:33-0400 Systolic blood pressure 130 mm[Hg] [facility] 06-09-2024 13:14-0400 Body height 160 cm Stacy DAVIS Work Phone: [facility] 06-09-2024 13:14-0400 Body mass index (BMI) [Ratio] 40.21 kg/m2 Stacy DAVIS Work Phone: [facility] 06-09-2024 13:14-0400 Body weight 102.97 kg Stacy DAVIS Work Phone: [facility] 05-02-2024 08:26-0500 Body height 159.38 cm [facility] 05-02-2024 08:26-0500 Body mass index (BMI) [Ratio] 41.2 kg/m2 [facility] 05-02-2024 08:26-0500 Body temperature 97.2 [degF] [facility] 05-02-2024 08:26-0500 Body weight 104.77 kg [facility] 05-02-2024 08:26-0500 Diastolic blood pressure 84 mm[Hg] [facility] 05-02-2024 08:26-0500 Heart rate 83 /min [facility] 05-02-2024 08:26-0500 SaO2% (BldA) [Mass fraction] 99 % [facility] 05-02-2024 08:26-0500 Systolic blood pressure 128 mm[Hg] [facility] 03-29-2024 10:53-0500 Body height 159.38 cm [facility] 03-29-2024 10:53-0500 Body mass index (BMI) [Ratio] 42.5 kg/m2 [facility] 03-29-2024 10:53-0500 Body temperature 96.7 [degF] [facility] 03-29-2024 10:53-0500 Body weight 108.12 kg [facility] 03-29-2024 10:53-0500 Diastolic blood pressure 82 mm[Hg] [facility] 03-29-2024 10:53-0500 Heart rate 74 /min [facility] 03-29-2024 10:53-0500 SaO2% (BldA) [Mass fraction] 99 % [facility] 01-21-2025 10:53-0500 Systolic blood pressure 122 mm[Hg] [facility] 02-22-2024 13:11-0500 Body height 162.6 cm Stacy Landa PA Work Phone: [facility] 02-22-2024 13:11-0500 Body mass index (BMI) [Ratio] 38.62 kg/m2 Stacy Landa PA Work Phone: [facility] 02-22-2024 13:11-0500 Body weight 102.06 kg Stacy Landa PA Work Phone: [facility] 01-22-2024 11:27-0500 Body height 159.38 cm [facility] 01-22-2024 11:27-0500 Body mass index (BMI) [Ratio] 41.2 kg/m2 [facility] 01-22-2024 11:27-0500 Body temperature 97.8 [degF] [facility] 01-22-2024 11:27-0500 Body weight 104.83 kg [facility] 01-22-2024 11:27-0500 Diastolic blood pressure 78 mm[Hg] [facility] 01-22-2024 11:27-0500 Heart rate 81 /min [facility] 01-22-2024 11:27-0500 SaO2% (BldA) [Mass fraction] 98 % [facility] 01-22-2024 11:27-0500 Systolic blood pressure 120 mm[Hg] [facility] 11-16-2023 13:51-0400 Body height 159.38 cm [facility] 11-16-2023 13:51-0400 Body mass index (BMI) [Ratio] 40.8 kg/m2 [facility] 11-16-2023 13:51-0400 Body weight 103.64 kg [facility] 11-16-2023 13:48-0400 Diastolic blood pressure 80 mm[Hg] [facility] 11-16-2023 13:48-0400 Heart rate 67 /min [facility] 11-16-2023 13:48-0400 Respiratory rate 18 /min [facility] 11-16-2023 13:48-0400 SaO2% (BldA) [Mass fraction] 98 % [facility] 11-16-2023 13:48-0400 Systolic blood pressure 122 mm[Hg] [facility] 04-20-2023 12:51-0500 Body mass index (BMI) [Ratio] 40.21 kg/m2 Qian Crocker MD Work Phone: [facility] 04-20-2023 12:51-0500 Body weight 102.97 kg Qian Crocker MD Work Phone: [facility] 04-20-2023 12:51-0500 Diastolic blood pressure 78 mm[Hg] Qian Crocker MD Work Phone: [facility] 04-20-2023 12:51-0500 Systolic blood pressure 128 mm[Hg] Qian Crocker MD Work Phone: [facility] 01-16-2023 08:30-0500 Body height 159.38 cm Angy Navratil Other [facility] Other 01-16-2023 08:30-0500 Body mass index (BMI) [Ratio] 39.99 kg/m2 Angy Navratil Other [facility] Other 01-16-2023 08:30-0500 Body weight 101.61 kg Angy Navratil Other [facility] Other 01-16-2023 08:30-0500 Diastolic blood pressure 78 mm[Hg] Angy Navratil Other [facility] Other 01-16-2023 08:30-0500 Respiratory rate 20 /min Angy Navratil Other [facility] Other 01-16-2023 08:30-0500 SaO2% (BldA) [Mass fraction] 98 % Angy Navratil Other [facility] Other 01-16-2023 08:30-0500 Systolic blood pressure 123 mm[Hg] Angy Lunsford Other [facility] Other 02-03-2022 14:00-0500 Body height 159.38 cm La Aquino Other [facility] Other 02-03-2022 14:00-0500 Body mass index (BMI) [Ratio] 41.06 kg/m2 La Aquino Other [facility] Other 02-03-2022 14:00-0500 Body temperature 98.2 [degF] La Aquino Other [facility] Other 02-03-2022 14:00-0500 Body weight 104.33 kg La Aquino Other [facility] Other 02-03-2022 14:00-0500 Diastolic blood pressure 79 mm[Hg] La Aquino Other [facility] Other 02-03-2022 14:00-0500 Respiratory rate 16 /min La Aquino Other [facility] Other 02-03-2022 14:00-0500 SaO2% (BldA) [Mass fraction] 98 % La Aquino Other [facility] Other 02-03-2022 14:00-0500 Systolic blood pressure 125 mm[Hg] La Aquino Other [facility] Other 01-28-2021 14:00-0500 Body height 159.38 cm La Kenia Other [facility] Other 01-28-2021 14:00-0500 Body mass index (BMI) [Ratio] 43.03 kg/m2 La eKnia Other [facility] Other 01-28-2021 14:00-0500 Body weight 109.32 kg La Kenia Other [facility] Other 01-28-2021 14:00-0500 Diastolic blood pressure 72 mm[Hg] La Aquino Other [facility] Other 01-28-2021 14:00-0500 Respiratory rate 16 /min La Aquino Other [facility] Other 01-28-2021 14:00-0500 SaO2% (BldA) [Mass fraction] 98 % La Aquino Other [facility] Other 01-28-2021 14:00-0500 Systolic blood pressure 130 mm[Hg] La Aquino Other [facility] Other Encounters Encounter Date Encounter Type Care Provider Facility Start: 07-07-2024 End: 07-07-2024 Alejandrao ruy DAVIS Work Phone: [facility] Start: 07-07-2024 End: 07-07-2024 Manuelboo flowshansel DAVIS Work Phone: [facility] Start: 07-07-2024 End: 07-07-2024 Postop follow up visit related to original px Stacy DAVIS Work Phone: [facility] Comment on above: S/P left knee arthro scopy (Primary Dx) Start: 07-07-2024 End: 07-07-2024 ambulatory STACY LANDA Not Available Start: 06-24-2024 End: 06-24-2024 ambulatory William Weiner Facility:[facility] Start: 06-23-2024 End: 06-23-2024 ambulatory La Aquino Facility:[facility] Start: 06-17-2024 End: 06-23-2024 Refill Dino Harden INSULATION SUPERVISOR Work Phone: [facility] Comment on above: Acute medial meniscu s tear of left knee, initial encounter (Primary Dx) Start: 06-13-2024 End: 06-13-2024 ambulatory [facility] Work Phone: Start: 06-13-2024 End: 06-13-2024 Patient encounter procedure [facility] Physician [facility] Work Phone: Start: 06-09-2024 End: 06-09-2024 Bamboo flowsheet Stacy DAVIS Work Phone: [facility] Start: 06-09-2024 End: 06-09-2024 Bamboo flowsheet Stacy DAVIS Work Phone: [facility] Start: 06-09-2024 End: 06-09-2024 Patient encounter procedure Stacy DAVIS Work Phone: [facility] Comment on above: Pre-op examination ( Primary Dx) Start: 06-09-2024 End: 06-09-2024 Preprocedural examination done Stacy DAVIS Work Phone: [facility] Work Phone: Start: 06-09-2024 End: 06-09-2024 ambulatory Michi Beck PT Work Phone: [facility] Comment on above: Acute pain of left k nee (Primary Dx); Difficulty walking Start: 05-24-2024 End: 05-24-2024 ambulatory ZEYNEP BALTAZAR Not Available Start: 05-02-2024 End: 05-02-2024 ambulatory [facility] Work Phone: Start: 05-02-2024 End: 05-02-2024 Patient encounter procedure [facility] Work Phone: Start: 04-15-2024 End: 04-15-2024 Bamboluis flowshansel Roth DO Work Phone: [facility] Start: 04-15-2024 End: 04-15-2024 Bamboo flowsheet Jr. Anjelica Singh Stepanic DO Work Phone: [facility] Start: 04-15-2024 End: 04-15-2024 Office outpatient visit 25 minutes Jr. Anjelica Roth DO Work Phone: [facility] Comment on above: Acute pain of left k nee (Primary Dx); Acute medial meniscus tear of left knee, initial encounter; Acute lateral meniscus tear of left knee, initial encounter Start: 04-15-2024 End: 04-15-2024 ambulatory ANJELICA LA Not Available Start: 03-29-2024 End: 03-29-2024 ambulatory [facility] Work Phone: Start: 03-29-2024 End: 03-29-2024 Patient encounter procedure [facility] Work Phone: Start: 03-21-2024 End: 03-21-2024 Telephone encounter Stacy DAVIS Work Phone: [facility] Start: 03-18-2024 End: 03-18-2024 ambulatory STACY LANDA Not Available Start: 02-22-2024 End: 02-22-2024 Bamboo flowsheet Stacy DAVIS Work Phone: [facility] Start: 02-22-2024 End: 02-22-2024 Bamboo flowsheet Stacy DAVIS Work Phone: [facility] Start: 02-22-2024 End: 02-22-2024 Office outpatient new 45 minutes Stacy DAVIS Work Phone: [facility] Comment on above: Acute pain of left k nee (Primary Dx); Internal derangement of left knee; Effusion of left knee; History of claustrophobia Start: 02-22-2024 End: 02-22-2024 ambulatory STACY LANDA Not Available Start: 01-22-2024 End: 01-22-2024 ambulatory [facility] Work Phone: Start: 01-22-2024 End: 01-22-2024 Encounter for general adult medical examination without abnormal findings [facility] Start: 01-22-2024 End: 01-22-2024 Patient encounter procedure [facility] Phys[facility] Work Phone: Start: 01-16-2024 Non-patient / Non-visit [facility] Physician [facility] Work Phone: Start: 01-08-2024 Patient encounter status [facility] Start: 11-16-2023 End: 11-16-2023 ambulatory [facility] Work Phone: Start: 11-16-2023 End: 11-16-2023 Patient encounter procedure [facility] Physician [facility] Work Phone: Start: 04-20-2023 End: 04-20-2023 Patient encounter status Qian Crocker MD Work Phone: [facility] Start: 04-20-2023 End: 04-20-2023 Periodic preventive med est patient 40-64yrs Qian Crocker MD Work Phone: [facility] Comment on above: Chronic dermatitis ( Primary Dx); Encounter for gynecological examination without abnormal finding; Screening for malignant neoplasm of cervix; Encounter for screening mammogram for malignant neoplasm of breast; Hormone imbalance Start: 04-01-2023 End: 04-01-2023 ambulatory Angy Lunsford Other [employer] Other Start: 04-01-2023 Telephone encounter Angy holguin [facility] Start: 01-16-2023 End: 01-16-2023 ambulatory Angy Lunsford Other [employer] Other Start: 01-16-2023 Patient encounter procedure Angy Lunsford [facility] Start: 01-16-2023 Periodic preventive med est patient 40-64yrs Angy Lunsford [facility] Start: 01-07-2023 Telephone encounter Angy holguin [facility] Start: 01-07-2023 End: 01-07-2023 ambulatory Angy Lunsford Facility:[facility] Start: 01-07-2023 Encounter for genera l adult medical examination without abnormal findings Angy Lunsford [facility] Start: 01-07-2023 End: 01-07-2023 ambulatory JEFERSON Aquino Work Phone: [facility] Work Phone: Start: 01-07-2023 End: 01-07-2023 Patient encounter procedure JEFERSON Aquino Work Phone: [facility] [place] Work Phone: Start: 12-09-2022 End: 12-09-2022 ambulatory Angy Lunsford Other [employer] Other Start: 12-09-2022 Patient encounter procedure Angy Lunsford [facility] Start: 12-09-2022 Telephone encounter Angy holguin [facility] Start: 06-02-2022 End: 06-02-2022 ambulatory La Aquino Other [employer] Other Start: 03-27-2023 Telephone encounter La vallejo [employer] Start: 05-22-2022 End: 05-22-2022 ambulatory La Isaelcaden Other [employer] Other Start: 05-22-2022 Telephone encounter La Karimi her [facility] Start: 04-22-2022 End: 04-22-2022 ambulatory La Lucerodudley Other [employer] Other Start: 04-22-2022 Telephone encounter La Karimi her [facility] Start: 04-04-2022 End: 04-04-2022 ambulatory La Saeeddylanr Other [employer] Other Start: 04-04-2022 Telephone encounter La Saeednoellejamison her [employer] Start: 02-03-2022 End: 02-03-2022 ambulatory La Lucerodudley Other [employer] Other Start: 02-03-2022 Patient encounter procedure La Lucerodudley [facility] Start: 02-03-2022 Periodic preventive med est patient 40-64yrs La Kenia [facility] Start: 01-23-2022 End: 01-23-2022 ambulatory La Kenia Other [employer] Other Start: 01-23-2022 Telephone encounter La Karimi her [place] [employer] Start: 01-22-2022 End: 01-22-2022 ambulatory La Aquino Facility:[facility] Start: 01-22-2022 End: 01-22-2022 ambulatory FILEMAKER DEVELOPER La Aquino Work Phone: [facility] Work Phone: Start: 01-22-2022 End: 01-22-2022 Patient encounter procedure FILEMAKER DEVELOPER La Aquino Work Phone: [facility] [place] Start: 11-18-2021 End: 11-18-2021 ambulatory La Aquino Other [employer] Other Start: 11-18-2021 Telephone encounter La Karimi her [facility] Start: 04-22-2021 End: 04-22-2021 ambulatory La Aquino Other [employer] Other Start: 04-22-2021 Telephone encounter La Karimi her [employer] Start: 01-28-2021 End: 01-28-2021 ambulatory La Aquino Other [employer] Other Start: 01-28-2021 Patient encounter procedure La Aquino [facility] Start: 01-28-2021 Periodic preventive med est patient 40-64yrs La Aquino [facility] Procedures Date Procedure Procedure Detail Performing Clinician Start: 02-22-2024 Radiologic examinati on knee 1/2 views Stacy DAVIS Work Phone: Start: 04-20-2023 Microscopic observat ion [Identifier] in Cervix by Cyto stain Stacy DAVIS Work Phone: Plan of Treatment Date Care Activity Detail Author Start: 04-20-2028 Screening for malignant neoplasm of cervix [facility] Start: 04-20-2026 Screening for malignant neoplasm of cervix Pap Smear [facility] Start: 05-25-2025 End: 05-25-2025 Patient encounter procedure 05/25/2025 2:00 PM EDT Office Visit [facility] [address] [place] D [address] [phone] Zeynep Baltazar, DO [address] [phone] [facility] Start: 11-07-2024 Influenza vaccination Influenz a Vaccine (Season Ended) [facility] Start: 07-07-2024 End: 07-07-2024 Patient encounter procedure [facility] Comment on above: S/P left knee arthro scopy (Primary Dx) Start: 06-09-2024 End: 06-09-2024 ambulatory 06/09/2024 2:00 PM EDT Evaluation [facility] [address] [place] [phone] Michi Beck, PT [address] [place] [address] [facility] Start: 06-09-2024 End: 06-09-2024 Patient encounter procedure 06/09/2024 1:00 PM EDT Office Visit [facility] [address] [place] [phone] Stacy Landa, PA [address] [place] [address] [facility] Start: 05-05-2024 End: 05-05-2024 Patient encounter procedure 05/05/2024 1:15 PM EST Office Visit [facility] [address] D [address] [phone] Zyenep Baltazar, DO [address] [phone] [facility] Start: 04-15-2024 End: 04-15-2024 Patient encounter procedure 04/15/2024 10:30 AM EST Office Visit [facility] [address] [place] [address] Jr. Anjelica Roth DO [address] [place] [address] Acute pain of left knee (Primary Dx); Acute medial meniscus tear of left knee, initial encounter; Acute lateral meniscus tear of left knee, initial encounter [facility] Comment on above: Acute pain of left k nee (Primary Dx); Acute medial meniscus tear of left knee, initial encounter; Acute lateral meniscus tear of left knee, initial encounter Start: 02-22-2024 End: 02-21-2025 MR Knee - left WO contrast MR knee left wo IV contrast Imaging Routine Internal derangement of left knee Expected: 02/22/2024 (Approximate), Expires: 02/21/2025 [facility] Work Phone: Comment on above: Expected: 02/22/2024 (Approximate), Expires: 02/21/2025 Start: 02-22-2024 End: 02-22-2024 Patient encounter procedure 02/22/2024 1:00 PM EST Office Visit [facility] [address] [place] [phone] Stacy Landa PA [address] [place] [address] Acute pain of left knee (Primary Dx) [facility] WILDA Comment on above: Acute pain of left k nee (Primary Dx) Start: 01-22-2024 Patient referral [facility] Work Phone: Start: 01-08-2024 End: 06-18-2024 DBT Breast - bilateral screening Bilateral screening mammogram with tomosynthesis Imaging Routine Encounter for screening mammogram for malignant neoplasm of breast Expected: 01/08/2024, Expires: 06/18/2024 [facility] Comment on above: Expected: 01/08/2024 , Expires: 06/18/2024 Start: 11-08-2023 Influenza vaccination Influenza Vacc ine (#1) [facility] Start: 05-20-2023 End: 05-20-2023 Patient encounter procedure 05/20/2023 8:00 AM EDT Office Visit [facility] OB [address] [place] [phone] Qian Crocker MD [address] [place] [address] [facility] Start: 04-20-2023 End: 04-20-2024 Follicle stimulating hormone Follicle stimulating hormone Lab Routine Hormone imbalance Expected: 04/20/2023 (Approximate), Expires: 04/20/2024 [facility] Comment on above: Expected: 04/20/2023 (Approximate), Expires: 04/20/2024 Start: 2013 Screening for malignant neoplasm of breast Mammogram [facility] Start: 1973 Screening for malignant neoplasm of colon [facility] Estradiol Estradiol Lab Ro utine Hormone imbalance Ordered: 04/20/2023 [facility] Comment on above: Ordered: 04/20/2023 Estrone Estrone Lab Rout ine Hormone imbalance Ordered: 04/20/2023 [facility] Comment on above: Ordered: 04/20/2023 Patient referral [facility] Work Phone: [employer] fpgs pap rf x hpv mrna e6/e7 [facility] fpgs pap rfx hpv mrna e6/e7 Pathology and Cytology Routine Encounter for gynecological examination without abnormal finding Screening for malignant neoplasm of cervix Ordered: 04/20/2023 [facility] Work Phone: Comment on above: Ordered: 04/20/2023 THINPREP TIS PAP AND HPV MRNA E6/E7 THINPREP TIS PAP AND HPV MRNA E6/E7 Pathology and Cytology Routine Encounter for gynecological examination without abnormal finding Screening for malignant neoplasm of cervix Ordered: 04/20/2023 [facility] Comment on above: Ordered: 04/20/2023 Thyrotropin [Units/volume] in Serum or Plasma TSH Lab Routine Hormone imbalance Ordered: 04/20/2023 [facility] Comment on above: Ordered: 04/20/2023 XR Knee - left 4 Views [facility] Immunizations Immunization Date Immunization Notes Care Provider Fa cili 12-26-2019 influenza, seasonal, injectable La Aquino Other [facility] 12-26-2019 influenza virus vaccine, unspecified formulation Stacy DAVIS Work Phone: [facility] Payers Date Payer Category Payer Private Health Insurance [id number] 2023 Private Health Insurance [id number] 2022 Private Health Insurance [id number] 2022 Self-pay [id number] 1975 Unknown [id number] 9 1973 Unknown [id number] 9 1973 Unknown [id number] [id number] 9 1973 Unknown [id number] [id number] 9 1973 Unknown [id number] [id number] 9 1973 Unknown [id number] [id number] 9 1973 Unknown [id number] [id number] 9 1973 Unknown [id number] [id number] 9 1973 Unknown [id number] [id number] 1973 Unknown [id number] [id number] 1973 Unknown [id number] Private Health Insurance [id number] Unknown HCAP/HFA/FAP Active [id number] Unknown [id number] Unknown [id number] Social History Date Type Detail Facility Unknown if ever smoked [employer] Other Start: 04-20-2023 End: 06-09-2024 Sex Assigned At [employer] [facility] Other Start: 12-23-2018 End: 05-05-2024 Tobacco smoking status NDIS Current some day smoker [facility] Start: 1975 Sex Assigned At Female F [facility] Start: 01-16-2023 End: 04-20-2023 Tobacco smoking status NHIS Never smoked tobacco [facility] Start: 04-20-2023 End: 05-05-2024 Tobacco use and exposure Smokeless tobacco non-user [facility] Start: 04-20-2023 End: 07-07-2024 Alcohol intake Ex-drinker (finding) [facility] Start: 04-20-2023 End: 06-09-2024 History of Social function [facility] How [...] At Not on file [facility] Start: 01-22-2024 End: 06-13-2024 Sex Female (finding) [facility] Start: 02-22-2024 Tobacco smoking stat us NDIS Smokes tobacco daily [facility] History of tobacco use Cigarette Smoker [facility] Clinical Notes 01-28-2021 to 07-07-2024 SUSAN Antonio - 07/07/2024 10:45 AM EDTPatient InstructionsTelephone Encounter - Dino Harden, DAVID - 06/17/2024 2:42 PM EDTTelephone Encounter - Dino Harden, INSULATION SUPERVISOR - 06/17/2024 2:42 PM EDT Note Date & Type Note Facility 07-07-2024 History of Kate hardy illness Narrative Images from the original note were not included. Orthopedic Office note: NAME: Amalia Allen : 1975 (EST PT) - 1ST P/O (L) KNEE SCOPE @[facility] 06/24/24 (1 WK, 6 DAYS) DOING WELL. CONTINUES HEP. NOTES PRESSURE AROUND PATELLA. LATERAL / MEDIAL SWELLING HS. WAKING HS. ROM LIMITED WITH FLEXION. STRENGTH IMPROVING DAILY. SUKHJINDER INTACT, REMOVED TODAY. NO S/S OF INFECTION. TAKING ASA EVERY OTHER DAY. Left Knee Exam Left knee exam is normal. Tenderness Left knee tenderness location: Compartments soft. Range of Motion The patient has normal left knee ROM. Left knee flexion: tightness on terminal flexion. Other Erythema: absent Scars: present (Portals well healing, sutures removed, no erythema, drainge or discharge, no dehisence) Sensation: normal Pulse: present Swelling: mild Effusion: effusion (consistent with surgery) present Comments: Operative lower extremity was noted to be neurovascularly intact. Patient was able to motor feet, toes and ankles in all anatomic planes bilaterally with 5 out of 5 strength. Operative knee's patellar tracking was optimal and quad/ham strength was 5 out of 5 to operative lower extremity. There was no varus valgus, anterior-posterior, or rotatory instability noted to the operative knee. Swelling was well controlled, patella was not ballotable and compartments were soft to the operative lower extremity. Dorsalis pedis and posterior tibial pulses were present and equal bilaterally. There was no evidence of infection or ascending lymphangitis to operative lower extremity. Sensation to light touch was intact to all dermatomes to bilateral lower extremities. Negative Homans and negative Floyd were noted bilaterally to lower extremities. Incision was healing without evidence of infection No orders of the defined types were placed in this encounter. Procedures Results ICD-10-CM 1. S/P left knee arthroscopy Z98.890 S/p CPMFC-3, excision of plica Assessment & Plan Post-operative status following left knee arthroscopy. The surgical procedure was thoroughly discussed at the bedside. She is demonstrating satisfactory progress. The significance of applying ice, elevating the limb, and gradually resuming activities was emphasized. She expressed gratitude, noting that while her knees are still sore, there is a marked improvement compared to her pre-surgery condition. Follow-up: A follow-up assessment will be conducted in 2 weeks to evaluate her readiness to return to work. A potential graduated return to work schedule was discussed, starting with 4-hour or 6-hour shifts and gradually increasing to her previous 12-hour shifts. PROCEDURE Procedure Performed Left knee arthroscopy. Questions answered in laymen terms at the bedside. The diagnosis, home exercise plan and any ongoing restrictions/ recommendations reviewed. If unable to be reached in office, I recommend evaluation at nearest Emergency Room if any symptoms worsened or new symptoms develop for requiring urgent evaluation. Visit was preformed using [employer]-commercial airplane pilot speech recognition. documented in this encounter [facility] 07-07-2024 Instructions SUSAN Antonio - 07/07/2024 10:45 AM EDT Discussed surgery for knee arthroscopy: Recommend no deep squatting, no pivoting or rotation... Recommend no running, jumping or high impact.. Avoid kneeling Cont with ice and elevation, 20 minutes on and 20 minutes off for 1 hour 2-3 times day. Be mindful of swelling pending increasing activities... consider sleeve or adalberto wrap if up for more than 10 mins documented in this encounter [facility] 06-27-2024 Note [id number] Note [id number] 06-24-2024 Note [facility] SURGERY Clinical Discharge Summary PERSON INFORMATION Name AMALIA ALLEN Age 48 Years 1975 Sex FEMALE Language Thai PCP La Aquino CNP Marital Status Single [facility] Service Ambulatory Surgery Acct# Arrival 06/24/2024 09:50:35 Visit Reason SURGERY - LEFT KNEE ARTHROSCOPY - MEDIAL AND LATERAL MENISCUS TEAR Acuity LOS 070 02:57 Address: [address] [place] [id number] Comment: PROVIDER INFORMATION VITALS INFORMATION Vital Sign Triage Latest Temp Oral Temp Temporal Temp Intravascular Temp Axillary Temp Rectal 02 Sat 99 % 98 % Respiratory Rate Peripheral Pulse Rate Apical Heart Rate Blood Pressure / 65 mmHg / 71 mmHg Comment: MEDICAL INFORMATION Allergy Info: morphine Prescriptions Given: ascorbic acid (Vitamin C) 2 tab(s) Oral (given by mouth) every day. Gummies. aspirin (aspirin 81 mg oral delayed release tablet) 1 tab(s) Oral (given by mouth) Thursday, Thursday and Thursday. atorvastatin (atorvastatin 20 mg oral tablet) 1 tab(s) Oral (given by mouth) every day. bifidobacterium-lactobacillus (Probiotic Formula) 1 tab(s) Oral (given by mouth) every day. Gummie. black cohosh (black cohosh 540 mg oral capsule) 1 cap(s) Oral (given by mouth) every day. cyanocobalamin (Vitamin B12 500 mcg oral tablet) 2 tab(s) Oral (given by mouth) every day. losartan (losartan 25 mg oral tablet) 1 tab(s) Oral (given by mouth) every day. phentermine (Adipex-P 37.5 mg oral capsule) 1 cap(s) Oral (given by mouth) every day. phentermine (phentermine 37.5 mg oral tablet) 1 tab(s) Oral (given by mouth) every day. Template Non-Formulary (Elderberry gummie) 1 tab(s) Oral (given by mouth) every day. Template Non-Formulary (Vitafusion gummies) 1 tab(s) Oral (given by mouth) every day. zinc gluconate (zinc (as gluconate) 50 mg oral tablet) 1 tab(s) Oral (given by mouth) every day. Medication List: Medications to Continue That Have Not Changed Other Medications ascorbic acid (Vitamin C) 2 tab(s) Oral (given by mouth) every day. Gummies. aspirin (aspirin 81 mg oral delayed release tablet) 1 tab(s) Oral (given by mouth) Thursday, Thursday and Thursday. atorvastatin (atorvastatin 20 mg oral tablet) 1 tab(s) Oral (given by mouth) every day. bifidobacterium-lactobacillus (Probiotic Formula) 1 tab(s) Oral (given by mouth) every day. Gummie. black cohosh (black cohosh 540 mg oral capsule) 1 cap(s) Oral (given by mouth) every day. cyanocobalamin (Vitamin B12 500 mcg oral tablet) 2 tab(s) Oral (given by mouth) every day. losartan (losartan 25 mg oral tablet) 1 tab(s) Oral (given by mouth) every day. phentermine (Adipex-P 37.5 mg oral capsule) 1 cap(s) Oral (given by mouth) every day. phentermine (phentermine 37.5 mg oral tablet) 1 tab(s) Oral (given by mouth) every day. Template Non-Formulary (Elderberry gummie) 1 tab(s) Oral (given by mouth) every day. Template Non-Formulary (Vitafusion gummies) 1 tab(s) Oral (given by mouth) every day. zinc gluconate (zinc (as gluconate) 50 mg oral tablet) 1 tab(s) Oral (given by mouth) every day. Medications to Continue That Have Not Changed Other Medications ascorbic acid (Vitamin C) 2 tab(s) Oral (given by mouth) every day. Gummies. aspirin (aspirin 81 mg oral delayed release tablet) 1 tab(s) Oral (given by mouth) Thursday, Thursday and Thursday. atorvastatin (atorvastatin 20 mg oral tablet) 1 tab(s) Oral (given by mouth) every day. bifidobacterium-lactobacillus (Probiotic Formula) 1 tab(s) Oral (given by mouth) every day. Gummie. black cohosh (black cohosh 540 mg oral capsule) 1 cap(s) Oral (given by mouth) every day. cyanocobalamin (Vitamin B12 500 mcg oral tablet) 2 tab(s) Oral (given by mouth) every day. losartan (losartan 25 mg oral tablet) 1 tab(s) Oral (given by mouth) every day. phentermine (Adipex-P 37.5 mg oral capsule) 1 cap(s) Oral (given by mouth) every day. phentermine (phentermine 37.5 mg oral tablet) 1 tab(s) Oral (given by mouth) every day. Template Non-Formulary (Elderberry gummie) 1 tab(s) Oral (given by mouth) every day. Template Non-Formulary (Vitafusion gummies) 1 tab(s) Oral (given by mouth) every day. zinc gluconate (zinc (as gluconate) 50 mg oral tablet) 1 tab(s) Oral (given by mouth) every day. Medications to Continue That Have Not Changed Other Medications ascorbic acid (Vitamin C) 2 tab(s) Oral (given by mouth) every day. Gummies. aspirin (aspirin 81 mg oral delayed release tablet) 1 tab(s) Oral (given by mouth) Thursday, Thursday and Thursday. atorvastatin (atorvastatin 20 mg oral tablet) 1 tab(s) Oral (given by mouth) every day. bifidobacterium-lactobacillus (Probiotic Formula) 1 tab(s) Oral (given by mouth) every day. Gummie. black cohosh (black cohosh 540 mg oral capsule) 1 cap(s) Oral (given by mouth) every day. cyanocobalamin (Vitamin B12 500 mcg oral tablet) 2 tab(s) Oral (given by mouth) every day. losartan (losartan 25 mg oral tablet) 1 tab(s) Oral (given by (more content not included)... [facility] 06-17-2024 Telephone encount er Note Post op pain rx. PDMP reviewed [facility] 06-17-2024 Miscellaneous Notes Formattin g of this note might be different from the original. Post op pain rx. PDMP reviewed documented in this encounter [facility] 06-09-2024 History of Presen t illness Narrative Images from the original note were not included. GENERAL HISTORY AND PHYSICAL: NAME: Amalia Allen : 1975 HISTORY OF PRESENT ILLNESS: Amalia Allen is an 48 y.o. @ female. Here for surgery instructions H&P left knee scope with lateral and medial mensicus tear. PAST MEDICAL HISTORY: Past Medical History: Diagnosis Date Hormone disorder Hypertension (CMS/HCC) Menopause ovarian failure PAST SURGICAL HISTORY: Past Surgical History: Procedure Laterality Date SECTION, LOW TRANSVERSE 07-21-2007 CHOLECYSTECTOMY VARICOSE VEIN SURGERY Bilateral SOCIAL HISTORY: Social History Occupational History Not on file Tobacco Use Smoking status: Some Days Current packs/day: 0.50 Average packs/day: 0.5 packs/day for 2.0 years (1.0 ttl pk-yrs) Types: Cigarettes Smokeless tobacco: Never Vaping Use Vaping status: Some Days Substances: Nicotine Devices: Disposable Substance and Sexual Activity Alcohol use: Not Currently Drug use: Never Sexual activity: Yes Partners: Male control/protection: Post-menopausal ALLERGIES: Allergies Allergen Reactions Morphine GI intolerance MEDICATIONS: Current Outpatient Medications Medication Instructions ascorbic acid (Vitamin C) 100 MG chewable tablet Vitamin C aspirin 81 mg, Daily atorvastatin (Lipitor) 20 MG tablet cyanocobalamin (VITAMIN B-12) 100 mcg, Daily ELDERBERRY PO Take by mouth losartan (Cozaar) 25 MG tablet Multiple Vitamins-Minerals (MULTIVITAMIN ADULTS PO) Multivitamin phentermine (Adipex-P) 37.5 MG tablet TAKE 1 TABLET BY MOUTH ONCE DAILY. MUST ADMINISTER 30 MINUTES BEFORE OR 1 TO 2 HOURS AFTER BREAKFAST zinc 50 MG tablet Take by mouth REVIEW OF SYSTEMS: Review of Systems Constitutional: Negative for fatigue, fever and unexpected weight change. Eyes: Negative for redness and visual disturbance. Gastrointestinal: Negative for abdominal pain. Denies Indigestion Musculoskeletal: See note: Skin: Negative for color change and rash. Neurological: Negative for light-headedness and numbness. Vitals: Body mass index is 40.21 kg/m . PHYSICAL EXAM: Physical Exam Constitutional: General: She is not in acute distress. Appearance: Normal appearance. HENT: Head: Normocephalic and atraumatic. Right Ear: External ear normal. Left Ear: External ear normal. Nose: Nose normal. No rhinorrhea. Mouth/Throat: Mouth: Mucous membranes are moist. Pharynx: No posterior oropharyngeal erythema. Eyes: Extraocular Movements: Extraocular movements intact. Conjunctiva/sclera: Conjunctivae normal. Cardiovascular: Rate and Rhythm: Normal rate and regular rhythm. Pulses: Normal pulses. Heart sounds: No murmur heard. Pulmonary: Effort: Pulmonary effort is normal. No respiratory distress. Breath sounds: Normal breath sounds. No wheezing or rhonchi. Abdominal: Palpations: Abdomen is soft. Tenderness: There is no abdominal tenderness. Musculoskeletal: Cervical back: Normal range of motion and neck supple. Lymphadenopathy: Cervical: No cervical adenopathy. Skin: General: Skin is warm and dry. Findings: No erythema or rash. Neurological: General: No focal deficit present. Mental Status: She is alert and oriented to person, place, and time. Psychiatric: Mood and Affect: Mood normal. Behavior: Behavior normal. No orders of the defined types were placed in this encounter. ASSESSMENT: ICD-10-CM 1. Pre-op examination Z01.818 PLAN: This patient presents for preadmission testing for upcoming surgery. Complete history with medical, surgery, and current allergy and medication list obtained. Consent for surgery signed and witnessed after verbal consent to perform surgery received. All questions answered and proposed surgery scheduled. PRE OP INSTRUCTIONS 06/09/24 @ 1:00 PRE OP TESTING 06/09/24 NEEDS CRUTCHES AUTH RECEIVED Follow up in about 4 weeks (around 07/07/2024) for Post-Op 07/07/24 10:45am IN [facility] WITH KURT LANDA. documented in this encounter [facility] 04-15-2024 History of Presen t illness Narrative HISTORY OF PRESENT ILLNESS: EST PT Amalia Allen is an 48 y.o. @ female. (EST PT W/ KURT LANDA); (L) KNEE DISCOMFORT; HERE FOR MRI RESULTS, DONE ON 03/18/24 AT [facility] XRAY (L) KNEE 02/22/24 IN [facility] XRAY (L) KNEE 01/22/24 @ [facility] MRI (L) KNEE 03/18/24 IN [facility] MDP 11/16/23 PER PCP SYMPTOMS FOR YEARS - PROGRESSIVELY GETTING WORSE - DENIES INJURY; PAIN IS INTERMITTENT ; WORSE WITH ACTIVITY / MOVEMENT - PAIN IS MOSTLY LATERAL / ANTERIOR. NOTES GOOD ROM ; DENIES ANY WEAKNESS / INSTABILITY. SOME SWELLING AFTER PROLONGED ACTIVITY - ICES / ELEVATES. TAKING IBUPROFEN 800MG / TYLENOL 1000MG PRN - SOME RELIEF ; WEARS HINGED KNEE BRACE WHILE WORKING. PT NOTES THAT SHE HAS TRIED THE COMPRESSION KNEE BRACE WITH NO RELIEF. ALLERGIES: Allergies Allergen Reactions Morphine GI intolerance HOME MEDICATIONS: Current Outpatient Medications Medication Instructions ascorbic acid (Vitamin C) 100 MG chewable tablet Vitamin C atorvastatin (Lipitor) 20 MG tablet cyanocobalamin (VITAMIN B-12) 100 mcg, Daily ELDERBERRY PO Take by mouth losartan (Cozaar) 25 MG tablet Multiple Vitamins-Minerals (MULTIVITAMIN ADULTS PO) Multivitamin vitamin E 200 Units, Daily zinc 50 MG tablet Take by mouth PHYSICAL EXAM: Knee Musculoskeletal Exam Gait Gait is normal. Antalgic: left Inspection Leg length disparity: no discrepancy Left Erythema: none Effusion: mild Edema: none Ecchymosis: none Deformity: none Alignment: normal Palpation Left Increased warmth: none Masses: none Tenderness: present Medial joint line: moderate Range of Motion Left Left knee range of motion is normal and full. Range of motion additional comments: + PAIN ON TERMINAL FLEXION AND EXTENSION Strength Left Extension: 5/5. Extension is affected by pain. Flexion: 5/5. Flexion is affected by pain. Instability Left Instability signs: none - stable Varus stress grade: normal Valgus stress grade: normal Anterior drawer: normal Medial Jorge test: positive Lateral Jorge test: positive Instability additional comments: Unable to deep squat. Neurovascular Left Left knee neurovascular exam is normal. Pulses - PT: normal Posterior tibial: 2+ Capillary refill: warm and well-perfused Special Signs Left Left knee special signs are normal. Patellar apprehension: none General Constitutional: appears stated age Labored breathing: no Psychiatric: normal mood and affect Neurological: alert Skin: intact Lymphadenopathy: none Vitals: There is no height or weight on file to calculate BMI. Tobacco Use: High Risk (04/15/2024) Patient History Smoking Tobacco Use: Every Day Smokeless Tobacco Use: Never Passive Exposure: Not on file Alcohol Use: Not At Risk (06/11/2023) AUDIT-C Frequency of Alcohol Consumption: Monthly or less Average Number of Drinks: 1 or 2 Frequency of Binge Drinking: Less than monthly IMAGING: Procedures No orders of the defined types were placed in this encounter. ASSESSMENT: ICD-10-CM 1. Acute pain of left knee M25.562 2. Acute medial meniscus tear of left knee, initial encounter S83.242A 3. Acute lateral meniscus tear of left knee, initial encounter S83.282A PLAN: We have discussed her MRI, x-rays, physical exam, and symptoms at length. We have recommended a diagnostic and operative arthroscopy of her Left knee for medial meniscus tear, possible lateral meniscus tear. Patient is agreement with this. After lengthy discussions involving both surgical and nonsurgical treatment options. Patient understands the risks of said treatment. We'll see her back on the day of surgery for diagnostic and operative arthroscopy of her left knee for medial and lateral meniscus tears. We have discussed both surgical and nonsurgical treatment options with the patient at length and the risks and benefits associated with both. The patient is requesting surgical intervention because they have not responded to outpatient treatment options including but not limited to rest ice, and home exercise program. Pain and decreased range of motion are affecting the patient's ability to sleep and activities of daily living and we have recommended surgical intervention. Questions answered in laymen terms at the bedside. The diagnosis, home exercise plan and any ongoing restrictions/ recommendations reviewed. If unable to be reached in office, I recommend evaluation at nearest Emergency Room if any symptoms worsened or new symptoms develop for requiring urgent evaluation. documented in this encounter [facility] 03-29-2024 Evaluation note Diagnosis Onset Date Resolution BMI 40.0-44.9, adult acute 2024 10:50am Hyperlipidemia acute March 292024 10:50am Hypertension acute March 10:50am Obesity, Class III, BMI 40-49.9 (morbid obesity) acute March 29, 2024 10:50am BMI 40.0-44.9, adult acute 2024 8:23am Hyperlipidemia acute April 102024 8:23am Hypertension acute April 8:23am Obesity, Class III, BMI 40-49.9 (morbid obesity) acute 2024 8:23am [facility] Work Phone: 1(882) 864-473401-21-2025 Evaluation note* Diagnosis Onset Date Resolution Status Admit Date BMI 40.0-44.9, adult acute 2024 10:50am Hyperlipidemia acute March 292024 10:50am Hypertension acute March 10:50am Obesity, Class III, BMI 40-4 9.9 (morbid obesity) acute March 29, 10:50am BMI 40.0-44.9, adult acute Febr uary 2024 8:23am Hyperlipidemia acute April 102024 8:23am Hypertension acute April 8:23am Obesity, Class III, BMI 40-4 9.9 (morbid obesity) acute May 02, 2024 8:23am BMI 40.0-44.9, adult acute Apri l 2024 8:30am Obesity, Class III, BMI 40-4 9.9 (morbid obesity) acute June 13, 2024 8:30am [facility] Work Phone: 1(364) 440-834501-13-2025 Telephone encounter Note* Telephone Encounter - SUSAN Antonio - 03/21/2024 10:32 PM EST Reviewed MRI, I recommend pt have appt with Dr. Roth to recheck symptoms, thank you [facility] [id number] Miscellaneous Notes* Telephone Encounter - SUSAN Antonio - 03/21/2024 10:32 PM EST Reviewed MRI, I recommend pt have appt with Dr. Roth to recheck symptoms, thank you [id number] History of Present illness Narrative* SUSAN Antonio - 02/22/2024 1:00 PM EST Images from the original note were not included. NAME: Amalia Allen : 1975 HISTORY OF PRESENT ILLNESS: NEW PT Amalia Allen is an 48 y.o. @ female. ([facility] REFERRAL) NEW PT PRESENTS WITH (L) KNEE DISCOMFORT. SYMPTOMS FOR YEARS - PROGRESSIVELY GETTING WORSE - DENIES ANY INJURY XRAYS DONE TODAY, 02/22/24 IN [facility] XRAYS 01/22/24 @ [facility]) PAIN IS INTERMITTENT ; WORSE WITH ACTIVITY / MOVEMENT - PAIN IS MOSTLY LATERAL / ANTERIOR. NOTES GOOD ROM ; DENIES ANY WEAKNESS / INSTABILITY. SOME SWELLING AFTER PROLONGED ACTIVITY - ICES / ELEVATES. TAKING IBUPROFEN 800MG / TYLENOL 1000MG PRN - SOME RELIEF ; WEARS HINGED KNEE BRACE WHILE WORKING. PAST MEDICAL HISTORY: Past Medical History: Diagnosis Date Hypertension (CMS/HCC) PAST SURGICAL HISTORY: Past Surgical History: Procedure Laterality Date SECTION, LOW TRANSVERSE 07-21-2007 CHOLECYSTECTOMY SOCIAL HISTORY: Social History Occupational History Not on file Tobacco Use Smoking status: Every Day Types: Cigarettes Smokeless tobacco: Never Vaping Use Vaping status: Some Days Substances: Nicotine Devices: Disposable Substance and Sexual Activity Alcohol use: Not Currently Drug use: Never Sexual activity: Yes Partners: Male control/protection: Condom Male ALLERGIES: Allergies Allergen Reactions Morphine GI intolerance HOME MEDICATIONS: Current Outpatient Medications Medication Instructions ascorbic acid (Vitamin C) 100 MG chewable tablet Vitamin C atorvastatin (Lipitor) 20 MG tablet cyanocobalamin (VITAMIN B-12) 100 mcg, Daily ELDERBERRY PO Take by mouth losartan (Cozaar) 25 MG tablet Multiple Vitamins-Minerals (MULTIVITAMIN ADULTS PO) Multivitamin vitamin E 200 Units, Daily zinc 50 MG tablet Take by mouth REVIEW OF SYSTEMS: Review of Systems Vitals: Body mass index is 38.62 kg/m . Tobacco Use: High Risk (02/22/2024) Patient History Smoking Tobacco Use: Every Day Smokeless Tobacco Use: Never Passive Exposure: Not on file Alcohol Use: Not At Risk (06/11/2023) AUDIT-C Frequency of Alcohol Consumption: Monthly or less Average Number of Drinks: 1 or 2 Frequency of Binge Drinking: Less than monthly PHYSICAL EXAM: Knee Musculoskeletal Exam Gait Gait is normal. Inspection Leg length disparity: no discrepancy Left Erythema: none Effusion: mild Edema: none Ecchymosis: none Deformity: none Alignment: normal Palpation Left Increased warmth: none Masses: none Tenderness: present Medial joint line: moderate Range of Motion Left Left knee range of motion is normal and full. Range of motion additional comments: + PAIN ON TERMINAL FLEXION AND EXTENSION Strength Left Extension: 5/5. Extension is affected by pain. Flexion: 5/5. Flexion is affected by pain. Instability Left Instability signs: none - stable Varus stress grade: normal Valgus stress grade: normal Anterior drawer: normal Lateral Jorge test: positive Instability additional comments: Unable to deep squat. Neurovascular Left Left knee neurovascular exam is normal. Pulses - PT: normal Posterior tibial: 2+ Capillary refill: warm and well-perfused Special Signs Left Left knee special signs are normal. Patellar apprehension: none General Constitutional: appears stated age Labored breathing: no Psychiatric: normal mood and affect Neurological: alert Skin: intact Lymphadenopathy: none IMAGING: xray 11/16/23 [facility]: no acute process left knee Procedures Orders Placed This Encounter Procedures XR knee 1 or 2 views left Order Specific Question: Is the patient ? Answer: No Order Specific Question: Reason for exam: Answer: PAIN ASSESSMENT: ICD-10-CM 1. Acute pain of left knee M25.562 XR knee 1 or 2 views left F/U Dr. Roth s/p MRI to discuss need for possible: Lateral menisectomy. Surgical and non surgical tx options discussed with conservative measures reviewed. Recommend ICE/ ELEVATION, continued activity modification in interim. Pt would consider surgical intervention to possibly improve symptoms. Assessment & Plan 1. Left knee pain. The symptoms have been acute on chronic, characterized by sharp pain, catching, and locking in the lateral knee joint line. She has been wearing a knee brace and doing conservative measures for several months to years. Knee x-ray shows no evidence of arthritis. An MRI is recommended to further evaluate the condition. She has been hesitant to undergo this treatment due to claustrophobia associatedwith MRIs. She is agreeable to a Valium prescription and to secure a tractor trailer truck driver. She is not to drive with the Valium prescription. Physical therapy is not recommended at this time due to recurrent knee effusion and symptoms suggestive of a meniscal tear in the lateral joint line. A prescription for Christos um 5 mg will be provided to manage her anxiety during the MRI procedure. She is advised to arrange for a tractor trailer truck driver as she should not operate a vehicle while under the influence of Valium. Follow-up The patient will follow up pending MRI results. Pt would consider surgery if MRI is positive for lateral meniscus tear. Questions answered in laymen terms at the bedside. The diagnosis, home exercise plan and any ongoing restrictions/ recommendations reviewed. If unable to be reached in office, I recommend evaluation at nearest Emergency Room if any symptoms worsened or new symptoms develop for requiring urgent evaluation. documented in this encounterNOMS [id number] Evaluation note* Diagnosis Onset Date Resolution Status Admit Date Hyperlipidemia acute January 072023 11:27am Hypertension acute January 11:27am Left hip pain acute January 212023 11:27am Left knee pain acute January 072023 11:27am Wellness examination acute [facility] 2023 11:27am BMI 40.0-44.9, adult acute Home2024 10:50am Hyperlipidemia acute March 292024 10:50am Hypertension acute March 10:50am Obesity, Class III, BMI 40-4 9.9 (morbid obesity) acute March 29 10:50am [facility] Work Phone: 1([phone]) 142-489009-09-2024 Evaluation note* Diagnosis Onset Date Resolution Status Admit Date Left knee pain acute November 16, 2023 1:45pm Hyperlipidemia acute January 072023 11:27am Hypertension acute January 11:27am Left hip pain acute January 212023 11:27am Left knee pain acute January 072023 11:27am Wellness examination acute [facility] 2023 11:27am [facility] Work Phone: 1(984) 167-284302-12-2024 History of Present illness Narrative* Qian Crocker MD - 04/20/2023 1:00 PM EST Images from the original note were not included. Qian Crocker MD Obstetrics and Gynecology Patient: Amalia Allen : 1975 (47 y.o.) Yearly Wellness Exam [...] to gross testing, coordination, and gait are normalor at baseline unless noted below. Physical Exam [...] 1 year/ after ultrasound documented in this encounterSaint [facility] [id number] Evaluation note* Encounter Date Diagnosis Assessment Notes Treatment Notes Treatment Clinical Notes Mar, Hyperlipidemia (ICD-10 - E78.5) [facility] Other 11-10-2023 Evaluation note* Encounter Date Diagnosis [...] continues to lose weight. Jan, Other T [facility] Other 10-03-2023 Evaluation note* Encounter Date Diagnosis Assessment Notes Treatment Notes Treatment Clinical Notes Dec, Hyperlipidemia (ICD- 10 - E78.5) Dec, Elevated fasting glu cose (ICD-10 - R73.01) Dec, Annual physical exam (ICD-10 - Z00.00) Dec, Primary hypertension (ICD-10 - I10) Dec, Pure hypercholestero lemia (ICD-10 - E78.00) Dec, Breast cancer screen ing (ICD-10 - Z12.31) [facility] Other 03-16-2023 Evaluation note* Encounter Date Diagnosis Assessment Notes Treatment Notes Treatment Clinical Notes May, Breast cancer screening (ICD-10 - Z12.31) [facility] Other 11-28-2022 Evaluation note* Encounter Date Diagnosis [...] on this and continues to lose weight. [facility] Other 09-12-2022 Evaluation note* Encounter Date Diagnosis Assessment Notes Treatment Notes Treatment Clinical Notes Nov, Hyperlipidemia (ICD-10 - E78.5) Nov, Primary hypertension (ICD-10 - I10) [facility] Other 11-22-2021 Evaluation note* Encounter Date Diagnosis [...] - N90.4) She has been under the treamtent of dermatology for this but nothing that they have prescribed has been beneficial to treatment of the rash. Discussed with her that I would discuss her case with Dr. Talamantes tomorrow whom is an [employer] and she would like me to proceed [...] on this and continues to lose weight. [facility] Other evaluation noteNo InformationNort [employer] Other [facility] noteNo assessment information available [facility] Work Phone: Evaluation note* Diagnosis Chronic dermatitis- [...] Date Resolution Status Left knee pain acute [facility] Work Phone: Evnxcation note* Diagnosis Acute pain of left knee- Primary Internal derangement of left knee Effusion of left knee History of claustrophobia documented in this encounter [facility]* Diagnosis Acute pain of left knee- Primary Acute medial meniscus tear of left knee, initial encounter Acute lateral meniscus tear of left knee, initial encounter documented [facility] this [facility]* Diagnosis Pre-op examination- Primary documented [facility] this [facility]* Diagnosis Acute pain of left knee- Primary Difficulty walking Difficulty in walking documented in this [facility]* Diagnosis Acute medial meniscus tear of left knee, initial encounter- Primary documented [facility]* Diagnosis S/P left knee arthroscopy- Primary documented in this encounter [facility] HealthcareHistory general Narrative - Reported* Type Description Date Medical History GERD Medical History varicose veins Medical History HTN Medical History HYPERLIPIDEMIA Medical History Varicose veins of leg with pain Medical History Lichen sclerosus Medical History Lichen sclerosus of female genit nathan Surgical History cholecystectomy Jan Surgical History c section 07/21/2007 Surgical History Bilateral Micro Phlebectomy Hospitalization History Morphine allergy reactio n Jan Hospitalization History childbirth [facility] Other Hospital Discharge instructionsAmbulatory Orders* Referral to Orthopedic Surgery Time Frame: 01/22/24, Location: None [facility] Work Phone: Reason for referral (narrative)* Consultation (Routine) - Authorized Specialty Diagnoses / Procedures Referred By Amauri hardy Referred To Contact Dermatology Diagnoses Chronic dermatitis Procedures MT OFFICE/OUTPATIENT NEW HIGH MDM 60 MINUTES Qian Crocker MD [address] [place] [address] Sulema Tinajero MD [address] [place] [address] Referral ID Status Reason Start Date Expiration Date Visits Requested Visits Authorized [id number] Authorized Specialty Services Required 04/20/2023 10/17/2023 1 [facility] N[facility]* Consultation (Routine) - Closed Specialty Diagnoses / Procedures Referred By Amauri hardy Referred To Contact Gastroenterology Diagnoses Screening for colon cancer Procedures MT OFFICE/OUTPATIENT [facility] MDM 60 MINUTES Zeynep Baltazar DO [address] [facility] [address] [place] [address] Phone: tel: fax: Karin Youssef DO [address] [facility] [address] [place] [address] Phone: tel: fax: Referral ID Status Reason Start Date Expiration Date V isits Requested Visits Authorized [id number] Closed Specialty Services Required 05/24/2024 11/20/2024 1 1 [facility] Family History No [...] pain Reason for Visit Left knee pain Chief Complaint Admit Date est care, left knee pain November 16, 2023 1:45pm Wellness January 22, 2024 11:27am Reason for Visit Admit Date Left knee pain November 16, 2023 1:45pm Hyperlipidemia January 22, 2024 11:27am Hypertension January 22, 2024 11:27am Left hip pain January 22, 2024 11:27am Left knee pain January 22, 2024 11:27am Wellness examination January 22, 2024 11:27am Chief Complaint Admit Date Wellness January 22, 2024 11:27am Discuss Menopause March 29, 2024 1 0:50am Reason for Visit Admit Date Hyperlipidemia January 22, 2024 11:27am Hypertension January 22, 2024 11:27am Left hip pain January 22, 2024 11:27am Left knee pain January 22, 2024 11:27am Wellness examination January 22, 2024 11:27am BMI 40.0-44.9, adult March 29, 2024 10:50am Hyperlipidemia March 29, 2024 1 0:50am Hypertension March 29, 2024 1 0:50am Obesity, Class III, BMI 40-49.9 (morbid obesity) March 29, 2024 10:50am Chief Complaint Admit Date Discuss Menopause March 29, 2024 1 0:50am F/U Weight Management May 02 8:23am Reason for Visit Admit Date BMI 40.0-44.9, adult March 29, 2024 10:50am Hyperlipidemia March 29, 2024 1 0:50am Hypertension March 29, 2024 1 0:50am Obesity, Class III, BMI 40-49.9 (morbid obesity) March 29, 2024 10:50am BMI 40.0-44.9, adult May 02, 2024 8:23am Hyperlipidemia May 02, 2024 8:23am Hypertension May 02, 2024 8:23am Obesity, Class III, BMI 40-49.9 (morbid obesity) May 02, 2024 8:23am Chief Complaint Admit Date Discuss Menopause March 29, 2024 1 0:50am F/U Weight Management May 02 8:23am 2 month f/u June 13, 2024 8:30 am Reason for Visit Admit Date BMI 40.0-44.9, adult March 29, 2024 10:50am Hyperlipidemia March 29, 2024 1 0:50am Hypertension March 29, 2024 1 0:50am Obesity, Class III, BMI 40-49.9 (morbid obesity) March 29, 2024 10:50am BMI 40.0-44.9, adult May 02, 2024 8:23am Hyperlipidemia May 02, 2024 8:23am Hypertension May 02, 2024 8:23am Obesity, Class III, BMI 40-49.9 (morbid obesity) May 02, 2024 8:23am BMI 40.0-44.9, adult June 13, 2024 8:3 0am Obesity, Class III, BMI 40-49.9 (morbid obesity) June 13, 2024 8:30am Additional Source Comments REASON FOR VISIT (unrecogniz ed section and content) Reason Comments Gynecologic Exam Reason Comments Pain Reason Comments Results Reason Comments Pre-op Exam Reason Comments Post-op Care Teams (unrecognized sec tion and content) Team Status: Inactive Member Role Status Dates La Aquino APRN INSULATION SUPERVISOR-C Attending Provider Act pratik Concrete Wall Grinder Operator Relationship Specialty Start Date End Date Unallocated, [place] Provider [address] [place], [place] [id number] PCP - General Family Medicine 04/20/23 Team Status: Active Member Role Status Dates Angy Lunsford APRN Primary Care Provider Activ e Team Status: Inactive Member Role Status Dates Angy Lunsford APRN Primary Care Provider Activ e Start: November 16, 2023 End: November 16, 2023 La Aquino APRN INSULATION SUPERVISOR-C Attending Provider Active Start: November End: November 16, 2023 Team Status: Active Member Role Status Dates La Aquino APRN INSULATION SUPERVISOR-C Primary Care Provider Active Team Status: Active Member Role Status Dates Angy Lunsford APRN Primary Care Provider Activ e Start: January 16, 2024 La Aquino APRN INSULATION SUPERVISOR-C Attending Provider Active Start: January 16, 2024 Team Status: Inactive Member Role Status Dates La Aquino APRN INSULATION SUPERVISOR-C Primary Care Provider, Attending Provider Active Start: January 22, 2024 End: January 22, 2024 Concrete Wall Grinder Operator Relationship Specialty Start Date End Date Unallocated, Koby Eason MD [facility]ly [facility] [address] [facility] [place] [address] PCP - General Family Medicine 04/20/23 Concrete Wall Grinder Operator Relationship Specialty Start Date End Date Unallocated, Koby Eason MD [facility]ly [facility], [facility] [place] [address] PCP - General Family Medicine 04/20/23 Team Status: Inactive Member Role Status Dates La Aquino APRN INSULATION SUPERVISOR-C Primary Care Provider, Attending Provider Active Start: March 29, 2024 End: March 29, 2024 Concrete Wall Grinder Operator Relationship Specialty Start Date End Date Unallocated, Koby Eason MD Formerly [facility], [facility] [place] [address] PCP - General Family Medicine 04/20/23 Concrete Wall Grinder Operator Relationship Specialty Start Date End Date Unallocated, Koby Eason MD [facility]ly [facility], [facility] [address] [facility] [place] [address] PCP - General Family Medicine 04/20/23 Team Status: Inactive Member Role Status Dates La Aquino APRN INSULATION SUPERVISOR-C Primary Care Provider, Attending Provider Active Start: May 02, 2024 End: May 02, 2024 Concrete Wall Grinder Operator Relationship Specialty Start Date End Date Unallocated, Koby Eason MD [address] [facility] [place] [address] PCP - General Family Medicine 04/20/23 Concrete Wall Grinder Operator Relationship Specialty Start Date End Date Unallocated, Koby Eason MD [facility]ly [facility] [address] [facility] [place] [address] PCP - General Family Medicine 04/20/23 Concrete Wall Grinder Operator Relationship Specialty Start Date End Date Unallocated, Koby Eason MD [facility]ly [facility] [address] [facility] [place] [address] PCP - General Family Medicine 04/20/23 Team Status: Inactive Member Role Status Dates La Aquino APRN INSULATION SUPERVISOR-C Primary Care Provider, Attending Provider Active Start: June 13, 2024 End: June 13, 2024 Concrete Wall Grinder Operator Relationship Specialty Start Date End Date Unallocated, Koby Eason MD [address] [place] [address] [place] [address] PCP - General Family Medicine 04/20/23 Concrete Wall Grinder Operator Relationship Specialty Start Date End Date Unallocated, Koby Eason MD [address] [place], [place] [address] [address] PCP - General Family Medicine 04/20/23 Goals (unrecognized section and content) Goals may be documented in a n alternate section INFORMATION SOURCE (unrecogn ized section and content) DATE CREATED AUTHOR 01/13/2023 [facility] DATE CREATED AUTHOR AUTHOR'S ORGANIZ ATION 07/12/2024 [facility] DATE CREATED AUTHOR AUTHOR'S ORGANIZ ATION 07/14/2024 [facility] FOR RECORDS PERTAINING TO PATIENTS WHO ARE [...] BE BASED ON THE PRIMARY CLINICAL RECORDS. [facility] [employer] [facility]. provides no warranty or guarantee of the accuracy or completeness of information in this document.
[2024-07-15 21:17] VITALS: BP 150/110; PULSE 71; TEMP 36.6; O2SAT 99; BMI 39.5
--- NOTE | 2024-07-15 21:36 | ED.BACK1 ---
HPI HPI - Back Pain/Injury General Chief Complaint: Back Pain/Injury Stated Complaint: left side pain Time Seen by Provider: 07/15/24 21:31 Source: patient Mode of arrival: walk-in Limitations: no limitations History of Present Illness HPI Narrative: left CVA pain for the past 5 days on and off. never pain free. Did have nausea and vomiting. States urine was orange. No fever denies abdominal pain Related Data Allergies Allergy/AdvReac Type Severity Reaction Status Date / Time morphine Allergy Severe Vomiting Verified 07/15/24 21:17 Opioid HPI Opioid Management Most Recent Opioid Data: Last Pain Scale 9 07/15/24, 21:38 Review of Systems ROS Status of ROS 10 or more systems reviewed and unremarkable except as noted in history and below PFSH PFSH Social History Little interest or pleasure in doing things: not at all Feeling down, depressed, or hopeless: not at all Exam Constitutional Vital Signs, click to edit/add: Last Vital Signs Temp 98 F 07/15/24 21:17 Pulse 70 07/16/24 01:05 Resp 17 07/16/24 01:05 BP 148/90 H 07/16/24 01:05 Pulse Ox 98 07/16/24 01:05 O2 Del Method Room Air 07/15/24 21:17 Common normals: no apparent distress, average body habitus, oriented x3, no limitations, healthy appearing, alert and well nourished [facility] Common normals: normocephalic and head/scalp atraumatic Eye Common normals: EOMs intact bilaterally and conjunctivae normal Respiratory Common normals: normal respiratory effort, no retractions, no use of accessory muscles and clear to auscultation bilaterally Cardio Common normals: regular rate, regular rhythm, S1 normal heart sound and S2 normal heart sound GI Common normals: Normal to inspection, nondistended, normoactive bowel sounds present, soft to palpation and non-tender Back & Pelvis General back: CVA tenderness CVA tenderness: left Extremity Common normals: normal to inspection and full ROM Neuro Common normals: oriented x3, CN's II-XII intact bilaterally and moves all extremities Psych Appearance: grossly normal Course Vital Signs Vital signs: Vital Signs Temperature 98 F 07/15/24 21:17 Pulse Rate 71 07/15/24 21:17 Respiratory Rate 18 07/15/24 21:17 Blood Pressure 150/110 H 07/15/24 21:17 Pulse Oximetry 99 07/15/24 21:17 Oxygen Delivery Method Room Air 07/15/24 21:17 Temperature 98 F 07/15/24 21:17 Pulse Rate 70 07/16/24 01:05 Respiratory Rate 17 07/16/24 01:05 Blood Pressure 148/90 H 07/16/24 01:05 Pulse Oximetry 98 07/16/24 01:05 Oxygen Delivery Method Room Air 07/15/24 21:17 MDM - Back Pain/Injury MDM Narrative Medical decision making narrative: presents with left CVA pain of varying intensity for past 5 days. never pain free. Exam with left CVA tenderness. UA positive with >[address] with mod. left hydronephrosis with 6mm stone obstructing proximal left ureter with moderate adjacent perinephric and periureteral inflammatory changes discussed with computer console operator Urologist . States they are not able to perform procedures at this hospital during the weekend and she will need a stent. He recommending transferring her to another facility. Patient is requesting [facility] Lab Data Labs: Lab Results 07/15/24 07/15/24 Range/Units 21:50 21:55 WBC 12.0 H (4.0-11.0) 10^3/uL RBC 4.78 (4.20-5.40) 10^6/uL Hgb 15.4 (12.0-16.0) g/dL Hct 43.3 (36.0-48.0) % MCV 90.6 (81.0-99.0) fL MCH 32.2 (26.7-34.0) pg MCHC 35.6 H (29.9-35.2) g/dL RDW 11.9 (11.0-15.0) % Plt Count 360 (150-450) 10^3/uL MPV 9.3 L (9.5-13.5) fL Neut % (Auto) 78.5 H (43.0-75.0) % Lymph % (Auto) 14.4 L (20.5-60.0) % [place] % (Auto) 6.6 (1.7-12.0) % Eos % (Auto) 0.0 L (0.9-7.0) % Baso % (Auto) 0.2 (0.2-2.0) % Neut # (Auto) 9.4 H (1.4-6.5) 10^3/uL Lymph # (Auto) 1.7 (1.2-3.8) 10^3/uL [place] # (Auto) 0.8 (0.3-0.8) 10^3/uL Eos # (Auto) 0.0 (0.0-0.7) 10^3/uL Baso # (Auto) 0.0 (0.0-0.1) 10^3/uL Abs Immat Gran (auto) 0.04 H (0.00-0.03) 10^3/uL Imm/Tot Granulo (auto) 0.3 (0.0-0.5) % Sodium 134 L (136-145) mmol/L Potassium 3.1 L (3.5-5.1) mmol/L Chloride 100 (98-107) mmol/L Carbon Dioxide 24.1 (21.0-32.0) mmol/L Anion Gap 13.0 BUN 19.0 H (7.0-18.0) mg/dL Creatinine 0.79 (0.55-1.02) mg/dL Est GFR ( Amer) >60 (>=60 mL/min/1.73m^2) Est GFR (Non-Af Amer) >60 (>=60 mL/min/1.73m^2) BUN/Creatinine Ratio 24.1 Glucose 112 H (74-106) mg/dL Calcium 9.0 (8.5-10.1) mg/dL Total Bilirubin 0.8 (0.2-1.0) mg/dL AST 15 (15-37) U/L ALT 29 (14-59) U/L Alkaline Phosphatase 88 (46-116) U/L Total Protein 7.2 (6.4-8.2) g/dL Albumin 4.0 (3.4-5.0) g/dL Globulin 3.2 g/dL Albumin/Globulin Ratio 1.3 Urine Color Yellow (YELLOW) Urine Clarity Sl cloudy (CLEAR) Urine pH 6.0 (5.0-9.0) Ur Specific [place] >=1.030 A (1.005-1.025) Urine Protein 100 A (NEG/TRACE) mg/dL Urine Glucose (UA) Negative (NEGATIVE) mg/dL Urine Ketones >=80 A (NEGATIVE) mg/dL Urine Occult Blood Small A (NEGATIVE) Urine Nitrite Positive A (NEGATIVE) Urine Bilirubin Negative (NEGATIVE) Urine Urobilinogen 1.0 (0.2-1.0) EU/dL Ur Leukocyte Esterase Small A (NEGATIVE) Urine RBC 5-10 A (0-2) #/HPF Urine WBC >100 A (NONE SEEN) #/HPF Ur Squamous Epith Cells Moderate A (NONE/RARE) #/LPF Urine Crystals None seen (None Seen) #/HPF Urine Bacteria Large A (NONE SEEN) #/HPF Urine Casts None seen (NONE SEEN) #/LPF Urine Mucus Large A (NONE SEEN) Ur Culture Indicated? Yes-[facility] Discharge Plan Discharge Chief Complaint: Back Pain/Injury Clinical Impression: Renal colic, Hydronephrosis due to obstruction of ureter, UTI (urinary tract infection) Patient Disposition: [facility] Mode of Transportation: Private Vehicle Discharge Date/Time: 07/16/24 01:19
[2024-07-15 21:57] LABS: Basophils Percent Auto 0.2 % (0.2-2.0); Hematocrit 43.3 % (36.0-48.0); Hemoglobin 15.4 g/dL (12.0-16.0); Immature Granulocytes Abs Auto 0.04 10^3/uL (0.00-0.03); Immature Granulocytes Pct Auto 0.3 % (0.0-0.5); Lymphocytes Absolute Auto 1.7 10^3/uL (1.2-3.8); Lymphocytes Percent Auto 14.4 % (20.5-60.0); Mean Corpuscular HGB Conc 35.6 g/dL (29.9-35.2); Mean Corpuscular Hemoglobin 32.2 pg (26.7-34.0); Mean Corpuscular Volume 90.6 fL (81.0-99.0); Mean Platelet Volume 9.3 fL (9.5-13.5); Monocytes Absolute Auto 0.8 10^3/uL (0.3-0.8); Monocytes Percent Auto 6.6 % (1.7-12.0); Neutrophils Absolute Auto 9.4 10^3/uL (1.4-6.5); Neutrophils Percent Auto 78.5 % (43.0-75.0); Platelet Count 360 10^3/uL (150-450); Red Blood Count 4.78 10^6/uL (4.20-5.40); Red Cell Distribution Width 11.9 % (11.0-15.0)
[2024-07-15 22:09] LABS: Bilirubin Urine NEGATIVE (NEGATIVE); Blood Urine SMALL (NEGATIVE); Clarity Urine SL CLOUDY (CLEAR); Color Urine YELLOW (YELLOW); Glucose Urine UA NEGATIVE (NEGATIVE); Ketones Urine >=80 mg/dL (NEGATIVE); Leukocyte Esterase Urine SMALL (NEGATIVE); Nitrite Urine POSITIVE (NEGATIVE); Protein Urine 100 mg/dL (NEG/TRACE); Specific Gravity Urine >=1.030 (1.005-1.025)
[2024-07-15 22:13] LABS: Alanine Aminotransferase 29 U/L (14-59); Albumin Globulin Ratio 1.3; Alkaline Phosphatase 88 U/L (46-116); Aspartate Amino Transferase 15 U/L (15-37); BUN Creatinine Ratio 24.1; Bilirubin Total 0.8 mg/dL (0.2-1.0); Carbon Dioxide 24.1 mmol/L (21.0-32.0); Chloride 100 mmol/L (98-107); Estimated GFR (African America >60 (>=60 mL/min/1.73m^2); Estimated GFR (Non-African Ame >60 (>=60 mL/min/1.73m^2); Globulin 3.2 g/dL; Glucose 112 mg/dL (74-106); Potassium 3.1 mmol/L (3.5-5.1); Sodium 134 mmol/L (136-145); Total Protein 7.2 g/dL (6.4-8.2)
[2024-07-15 22:14] LABS: Bacteria Urine LARGE #/HPF (NONE SEEN); Cast Seen? NONE SEEN #/LPF (NONE SEEN); Crystals Seen? None Seen #/HPF (None Seen); Mucus Urine LARGE (NONE SEEN); Squamous Epithelial Cell Urine MODERATE #/LPF (NONE/RARE); Urine Culture Indicated YES-FRMC; WBC Urine >100 #/HPF (NONE SEEN)
[2024-07-16] MEDS: CEFTRIAXONE 1,000 MG, LIDOCAINE HCL/PF 2.1 ML IM ×2 (00:57→00:58)
[2024-07-16 01:05] VITALS: BP 148/90; PULSE 70; O2SAT 98
== END 2024-07-16 01:19 | disposition short-term general hospital (02) ==
PROVIDERS: Emergency Provider Internal Medicine; PCP Nurse Practitioner Family
DX: N13.6 Pyonephrosis (principal)
CPT/HCPCS: 36415; 74176; 80053; 81001; 85025; 87086; 87088; 87186; 96372; 99284; J0696